=== PATIENT | male | born 1940 | race Caucasian/White ===

== ENCOUNTER 2017-01-25 12:40 | Emergency (ER) | payer MEDICARE, OTHER ==
[~2017-01-25] VITALS: Ht 182.9 cm; Wt 106.7 kg
[2017-01-25 12:42] VITALS: TEMP 36.5; Ht 182.9 cm; Wt 106.7 kg
[2017-01-25 13:17] LABS: BASO % 0.3 %; BASO ABS # 0.03 K/uL (0-0.2); COMPLETE YES; EOS % 0.5 %; HEMATOCRIT 42.2 % (42-52); IG% 0.2 %; LYMPH % 11.7 %; LYMPH ABS # 1.13 K/uL (1.2-3.4); MEAN CELL VOLUME 84.9 fL (80-100); MEAN CORPUSCULAR HEMOGLOBIN 27.2 pg (25-34); MEAN PLATELET VOLUME 10.1 fL (7.4-10.4); MONO % 9.5 %; NEUT % 77.8 %; PLATELET COUNT 213 K/uL (130-400); RED BLOOD COUNT 4.97 M/uL (4.7-6.1); WHITE BLOOD COUNT 9.62 K/uL (4.8-10.8)
[2017-01-25 13:17] LABS: URINE APPEARANCE CLEAR (CLEAR); URINE BILIRUBIN NEG (NEG); URINE COLOR YELLOW; URINE EPITHELIAL CELL AUTO 0-5 /lpf (0-5); URINE NITRITE NEG (NEG); URINE SPECIFIC GRAVITY 1.015 (1.000-1.030); UROBILINOGEN NEG (NEG)
[2017-01-25 13:22] LABS: MANUAL MICROSCOPIC REQUIRED? NO; REVIEW REQ? NO
[2017-01-25 13:34] LABS: BUN/CREATININE RATIO 11.2 (10-20); CALCIUM 9.1 mg/dl (8.5-10.1); CREATININE 1.2 mg/dl (0.60-1.40); POTASSIUM 3.8 mmol/L (3.5-5.1)
--- NOTE | 2017-01-25 13:48 | DIAGNOSTIC IMAGING REPORT ---
CT SCAN OF THE ABDOMEN AND PELVIS WITHOUT IV CONTRAST CLINICAL HISTORY: Left-sided abdominal pain radiating to the groin. COMPARISON STUDY: No priors. TECHNIQUE: CT scan of the abdomen and pelvis is performed from the lung bases to the proximal femora. Images are reviewed in the axial, sagittal, and coronal planes. IV contrast was not administered for this examination. Automated dose control exposure was utilized. CT DOSE: 1662.83 mGy.cm FINDINGS: Lung bases: The heart is normal in size and without pericardial effusion. Coronary artery calcifications are identified. Emphysematous change is noted at the lung base. There are numerous small calcified granulomas. Subpleural reticulation is observed. No airspace consolidation or pleural effusion is seen. There is a moderate hiatal hernia. Liver: The unenhanced liver is normal in size, contour, and attenuation. There is no intrahepatic biliary ductal dilatation. Gallbladder: Unremarkable. Spleen: Normal in size and attenuation. Pancreas: Unremarkable. Adrenal glands: Unremarkable. Kidneys: The unenhanced kidneys demonstrate cortical atrophy. There is an 8 mm obstructing calculus in the mid left ureter seen on axial image #235 at the level of L4-L5. This causes mild left hydroureteronephrosis. There is slight associated perinephric and periureteric stranding. There are at least 2 additional nonobstructing calculi in the left kidney measuring up to 3 mm. There are at least 3 nonobstructing calculi in the right kidney measuring up to 6 mm. There is no right-sided hydronephrosis. A 6 cm exophytic cyst arises from the lower pole of the right kidney. Abdominal vasculature: There is moderate atherosclerotic calcification and ectasia of the abdominal aorta. Bowel: The small bowel and colon are normal in course and caliber. There is moderate diverticulosis of left colon without CT evidence of acute diverticulitis. The appendix is well-visualized and normal. Peritoneum: There is no intraperitoneal free air or abdominal ascites. There is a fat-containing umbilical hernia. Lymphadenopathy: None. Pelvic viscera: Prostate gland is heterogeneous and demonstrates median lobe hypertrophy. The bladder wall is mildly thickened and trabeculated. There is a bladder diverticulum seen anteriorly on image #357 measuring 1.8 cm. The appearance is consistent with chronic bladder outlet obstruction. Skeletal structures: The skeletal structures are osteopenic. There is mild to moderate lumbosacral spondylosis. There are bilateral pars defects at L5. Only minimal anterolisthesis is seen at L5-S1. Degenerative change is also seen in the hips and sacroiliac joints. No lytic or blastic lesions are seen. IMPRESSION: 1. There is an 8 mm obstructing calculus in the mid left ureter. This causes mild left-sided hydroureteronephrosis. 2. Additional bilateral nonobstructing renal calculi as above. 3. Moderate diverticulosis of the left colon without CT evidence of acute diverticulitis. 4. Prostatomegaly with evidence of chronic bladder outlet obstruction. 5. Emphysema. 6. Moderate hiatal hernia. 7. Additional findings as above. Electronically signed by: Bryan Blank M.D. 01/25/2017 1:46 PM Dictated Date/Time: 01/25/2017 1:37 PM
[2017-01-25] MEDS ORDERED: ONDA4TAB10 SL (14:24)
[2017-01-25] MEDS ORDERED: OXYC1TAB3 PO (14:24)
[2017-01-25 14:35] VITALS: BP 137/72; PULSE 72; O2SAT 98
[2017-01-25] MEDS ORDERED: ALLO100T PO (14:35)
[2017-01-25] MEDS ORDERED: THYR90TA PO (14:35)
[2017-01-25] MEDS ORDERED: OMEP20CA9 PO (14:35)
[2017-01-25] MEDS ORDERED: SILD50TA PO (14:35)
[2017-01-25] MEDS ORDERED: COLC0.6T54 PO (14:35)
[2017-01-25] MEDS ORDERED: METO-551 PO (14:35)
[2017-01-25] MEDS ORDERED: CHOL1TAB42 PO (14:37)
[2017-01-25] MEDS ORDERED: VITA1TAB12 PO (14:37)
[2017-01-25] MEDS ORDERED: VITACAP26 PO (14:37)
[2017-01-25] MEDS ORDERED: PROB1TAB16 PO (14:37)
[2017-01-25] MEDS ORDERED: CYAN100T PO (14:37)
--- NOTE | 2017-01-25 14:40 | EMERGENCY ROOM VISIT NOTE ---
History Report prepared by Yusef: Shanell De Jesus Under the Supervision of: Dr. Travis Gracia M.D. First contact with patient: 12:47 Chief Complaint: GI ASSESSMENT Stated Complaint: PAIN LOWER LEFT SIDE History of Present Illness The patient is a 77 year old male who presents to the Emergency Room with complaints of intermittent left sided abdominal pain beginning yesterday. He states that the pain can be sharp at times. The patient is experiencing constipation and vomiting episodes. He notes that he vomited yesterday morning and this morning. The patient denies diarrhea, blood in urine, or burning with urination. He does not have a history of kidney stones. Source of History: patient Onset: yesterday Position: abdomen (left sided) Quality: sharp (at times) Timing: intermittent Associated Symptoms: + vomiting, No chest pain, No diarrhea, No urinary symptoms Note: The patient is experiencing constipation. Review of Systems See HPI for pertinent positives & negatives. A total of 10 systems reviewed and were otherwise negative. Past Medical & Surgical Medical Problems: (1) Hypertension Family History Patient reports no known family medical history. Social History Smoking Status: Never Smoker Marital Status: Housing Status: lives with family Occupation Status: retired Current/Historical Medications Scheduled Cholecalciferol (Vitamin D), 15,000 UNITS PO DAILY Cyanocobalamin (Vitamin B-12), 100 MCG PO DAILY Metoprolol Tartrate (Lopressor), 25 MG PO DAILY Omeprazole (Prilosec), 20 MG PO BID Ondasetron Odt (Zofran Odt), 4 MG SL Q6H Probiotic Product (Probiotic), 1 TAB PO DAILY Sildenafil Citrate (Viagra), 50 MG PO PRN Thyroid ([place]ora Thyroid), 1 TAB PO DAILY Vitamin E (Vitamin E), 1 TAB PO DAILY Vitamins C & E (Vitamin C), 1 CAP PO DAILY Scheduled PRN Allopurinol (Zyloprim), 100 MG PO UD PRN for gout Colchicine (Colchicine), 0.6 MG PO UD PRN for gout Oxycodone Ir (Roxicodone Ir), 5 MG PO Q4H PRN for Pain Allergies Coded Allergies: Tetracycline (Unverified Allergy, Unknown, unknown, 01/25/17) Physical Exam Vital Signs Date Time Temp Pulse Resp B/P (MAP) Pulse Ox O2 Delivery O2 Flow Rate FiO2 01/25/17 12:42 36.5 90 18 164/78 95 Physical Exam Constitutional: Vital signs reviewed. Eyes: Pupils are equal round reactive to light. Conjunctiva are noninjected. ENT: Pharynx is clear without erythema or exudate. Mucous membranes are moist. Neck supple without meningeal signs. Respiratory: Clear to auscultation bilaterally. Breath sounds are equal bilaterally. Cardiovascular: Regular rate and rhythm. No rubs or gallops. GI: Soft, nondistended and nontender. Bowel sounds are present. Musculoskeletal: No peripheral edema. No lower extremity tenderness. Integumentary: No cyanosis. Neurological: The patient is awake and alert. No focal deficits. Psychiatric: Normal affect. Medical Decision & Procedures ER Provider Diagnostic Interpretation: CT results as stated below per my review and radiologist interpretation. CT SCAN OF THE ABDOMEN AND PELVIS WITHOUT IV CONTRAST CLINICAL HISTORY: Left-sided abdominal pain radiating to the groin. COMPARISON STUDY: No priors. TECHNIQUE: CT scan of the abdomen and pelvis is performed from the lung bases to the proximal femora. Images are reviewed in the axial, sagittal, and coronal planes. IV contrast was not administered for this examination. Automated dose control exposure was utilized. CT DOSE: 1662.83 mGy.cm FINDINGS: Lung bases: The heart is normal in size and without pericardial effusion. Coronary artery calcifications are identified. Emphysematous change is noted at the lung base. There are numerous small calcified granulomas. Subpleural reticulation is observed. No airspace consolidation or pleural effusion is seen. There is a moderate hiatal hernia. Liver: The unenhanced liver is normal in size, contour, and attenuation. There is no intrahepatic biliary ductal dilatation. Gallbladder: Unremarkable. Spleen: Normal in size and attenuation. Pancreas: Unremarkable. Adrenal glands: Unremarkable. Kidneys: The unenhanced kidneys demonstrate cortical atrophy. There is an 8 mm obstructing calculus in the mid left ureter seen on axial image #235 at the level of L4-L5. This causes mild left hydroureteronephrosis. There is slight associated perinephric and periureteric stranding. There are at least 2 additional nonobstructing calculi in the left kidney measuring up to 3 mm. There are at least 3 nonobstructing calculi in the right kidney measuring up to 6 mm. There is no right-sided hydronephrosis. A 6 cm exophytic cyst arises from the lower pole of the right kidney. Abdominal vasculature: There is moderate atherosclerotic calcification and ectasia of the abdominal aorta. Bowel: The small bowel and colon are normal in course and caliber. There is moderate diverticulosis of left colon without CT evidence of acute diverticulitis. The appendix is well-visualized and normal. Peritoneum: There is no intraperitoneal free air or abdominal ascites. There is a fat-containing umbilical hernia. Lymphadenopathy: None. Pelvic viscera: Prostate gland is heterogeneous and demonstrates median lobe hypertrophy. The bladder wall is mildly thickened and trabeculated. There is a bladder diverticulum seen anteriorly on image #357 measuring 1.8 cm. The appearance is consistent with chronic bladder outlet obstruction. Skeletal structures: The skeletal structures are osteopenic. There is mild to moderate lumbosacral spondylosis. There are bilateral pars defects at L5. Only minimal anterolisthesis is seen at L5-S1. Degenerative change is also seen in the hips and sacroiliac joints. No lytic or blastic lesions are seen. IMPRESSION: 1. There is an 8 mm obstructing calculus in the mid left ureter. This causes mild left-sided hydroureteronephrosis. 2. Additional bilateral nonobstructing renal calculi as above. 3. Moderate diverticulosis of the left colon without CT evidence of acute diverticulitis. 4. Prostatomegaly with evidence of chronic bladder outlet obstruction. 5. Emphysema. 6. Moderate hiatal hernia. 7. Additional findings as above. Electronically signed by: Bryan Blank M.D. 01/25/2017 1:46 PM Dictated Date/Time: 01/25/2017 1:37 PM Laboratory Results 01/25/17 13:01 Red Blood Count 4.97, Mean Corpuscular Volume 84.9, Mean Corpuscular Hemoglobin 27.2, Mean Corpuscular Hemoglobin Concent 32.0, Mean Platelet Volume 10.1, Neutrophils (%) (Auto) 77.8, Lymphocytes (%) (Auto) 11.7, Monocytes (%) (Auto) 9.5, Eosinophils (%) (Auto) 0.5, Basophils (%) (Auto) 0.3, Neutrophils # (Auto) 7.48, Lymphocytes # (Auto) 1.13, Monocytes # (Auto) 0.91, Eosinophils # (Auto) 0.05, Basophils # (Auto) 0.03 01/25/17 13:01 Test 01/25/17 12:55 01/25/17 13:01 Urine Color YELLOW Urine Appearance CLEAR (CLEAR) Urine pH 6.0 (4.5-7.5) Urine Specific [place] 1.015 (1.000-1.030) Urine Protein NEG (NEG) Urine Glucose (UA) NEG (NEG) Urine Ketones NEG (NEG) Urine Occult Blood 2+ (NEG) Urine Nitrite NEG (NEG) Urine Bilirubin NEG (NEG) Urine Urobilinogen NEG (NEG) Urine Leukocyte Esterase NEG (NEG) Urine WBC (Auto) 1-5 /hpf (0-5) Urine RBC (Auto) 5-10 /hpf (0-4) Urine Hyaline Casts (Auto) 1-5 /lpf (0-5) Urine Epithelial Cells (Auto) 0-5 /lpf (0-5) Urine Bacteria (Auto) NEG (NEG) White Blood Count 9.62 K/uL (4.8-10.8) Red Blood Count 4.97 M/uL (4.7-6.1) Hemoglobin 13.5 g/dL (14.0-18.0) Hematocrit 42.2 % (42-52) Mean Corpuscular Volume 84.9 fL (80-100) Mean Corpuscular Hemoglobin 27.2 pg (25-34) Mean Corpuscular Hemoglobin Concent 32.0 g/dl (32-36) Platelet Count 213 K/uL (130-400) Mean Platelet Volume 10.1 fL (7.4-10.4) Neutrophils (%) (Auto) 77.8 % Lymphocytes (%) (Auto) 11.7 % Monocytes (%) (Auto) 9.5 % Eosinophils (%) (Auto) 0.5 % Basophils (%) (Auto) 0.3 % Neutrophils # (Auto) 7.48 K/uL (1.4-6.5) Lymphocytes # (Auto) 1.13 K/uL (1.2-3.4) Monocytes # (Auto) 0.91 K/uL (0.11-0.59) Eosinophils # (Auto) 0.05 K/uL (0-0.5) Basophils # (Auto) 0.03 K/uL (0-0.2) RDW Standard Deviation 50.5 fL (36.4-46.3) RDW Coefficient of Variation 16.3 % (11.5-14.5) Immature Granulocyte % (Auto) 0.2 % Immature Granulocyte # (Auto) 0.02 K/uL (0.00-0.02) Anion Gap 7.0 mmol/L (3-11) Est Creatinine Clear Calc Drug Dose 67.1 ml/min Estimated GFR () 68.1 Estimated GFR (Non- 58.8 BUN/Creatinine Ratio 11.2 (10-20) Calcium Level 9.1 mg/dl (8.5-10.1) Total Bilirubin 0.8 mg/dl (0.2-1) Direct Bilirubin 0.1 mg/dl (0-0.2) Aspartate Amino Transf (AST/SGOT) 20 U/L (15-37) Alanine Aminotransferase (ALT/SGPT) 23 U/L (12-78) Alkaline Phosphatase 82 U/L (45-117) Total Protein 7.3 gm/dl (6.4-8.2) Albumin 3.7 gm/dl (3.4-5.0) Lipase 83 U/L (73-393) Laboratory results as reviewed by me. ED Course 1248: The patient was evaluated in room B10. A complete history and physical exam was performed. 1415: I reevaluated the patient and he is having no pain. He will follow up with [facility]. I discussed his test results including incidental CT findings. 1423: Upon reevaluation, the patient appeared to have improvement of his symptoms. I discussed tonight's findings with him. He verbalized agreement of the treatment plan. He was discharged home. Medical Decision This is a 77-year-old male who presents with left-sided abdominal pain. Differential diagnosis includes renal colic, obstructive uropathy, UTI, strain, diverticulitis, AAA. I did perform a limited focused review of portions of the patient's old chart on the electronic medical record. The patient has had no visits to this hospital. Medication Reconciliation: I attest that I have personally reviewed the patient' s current medication list. Blood Pressure Screening: Patient was found to have an elevated blood pressure and was referred to their primary doctor for recheck and further treatment. I did evaluate the patient as noted above. He is presenting with intermittent left-sided abdominal pain and flank pain. He has no pain at this time. IV access was established. I did order and personally review the patient's urine analysis x-ray as described above. He does have hematuria without signs of infection. I did order and review the patient's blood work as noted in the electronic medical record. I did order a CT of the abdomen and pelvis. I did review the images myself as well as the radiology report as described above. He does have an 8 mm kidney stone in the proximal left ureter. He also has some other incidental findings including heterogeneity of the prostate with enlargement. I did discuss the test results with the patient I did recommend close follow up with urology. He did prefer to follow up with [facility] urology. He was referred to Dr. Lindo. He was given a prescription for oxycodone and Zofran. He was given precautions regarding oxycodone. He was discharged in good condition and warned that his pain may return and he potentially may require reevaluation or even admission.. [place] Drug Monitoring Program Search Results: patient reviewed within database (no matches found ) Impression Primary Impression: Renal colic Scribe Attestation The scribe's documentation has been prepared under my direct and personally reviewed by me in its entirety. I confirm that the note above accurately reflects all work, treatment, procedures, and medical decision making performed by me. Departure Information Dispostion Home / Self-Care Prescriptions Ondasetron Odt (ZOFRAN ODT) 4 Mg Tab 4 MG SL Q6H for Nausea, #10 TAB Prov: Travis Gracia M.D. 01/25/17 Oxycodone Ir (Roxicodone Ir) 5 Mg Tab 5 MG PO Q4H Y for Pain, #20 TAB Prov: Travis Gracia M.D. 01/25/[address] [facility] Forms HOME CARE DOCUMENTATION FORM, IMPORTANT VISIT INFORMATION Patient Instructions Kidney Stones Expectant Therapy, My [facility] Additional Instructions You have been examined and treated today on an emergency basis only. This is not a substitute for, or an effort to provide, complete comprehensive medical care. It is impossible to recognize and treat all injuries or illnesses in a single emergency department visit. It is therefore important that you follow up closely with your physician and urology. Call as soon as possible for an appointment. Return for worsening symptoms or if you develop fever, vomiting, or any other concerning symptoms.
[2017-02-07] MEDS ORDERED: TAMS0.4C38 PO (11:45)
[2017-05-30] MEDS ORDERED: UMEC1AER INH (09:07)
[2017-05-30] MEDS ORDERED: SERT50TA PO (09:07)
[2017-05-30] MEDS ORDERED: ASPCH81X PO (09:07)
[2017-06-30] MEDS ORDERED: KETOCONAZOLE 2% TOP (15:31)
[2017-06-30] MEDS ORDERED: LAMISIL 1% TOP (15:31)
[2017-06-30] MEDS ORDERED: KRIL1000 PO (15:32)
[2017-06-30] MEDS ORDERED: AMOX-CLAV PO (15:33)
[2017-06-30] MEDS ORDERED: VITAMIN B PO (16:10)
[2017-06-30] MEDS ORDERED: MULT-506 PO (16:10)
[2017-06-30] MEDS ORDERED: VITAMIN D PO (16:10)
[2017-06-30] MEDS ORDERED: IRON PO (16:10)
== END 2017-01-25 14:46 | disposition home or self-care (01) ==
LOC: C.EDB 12:43
DX: N13.2 Hydronephrosis with renal and ureteral calculous obstruction (principal); R10.32 Left lower quadrant pain; K57.92 Diverticulitis of intestine, part unspecified, without perforation or abscess without bleeding; J43.9 Emphysema, unspecified

== ENCOUNTER → 2017-01-29 | Outpatient (CLI) | payer MEDICARE ==
[~2017-01-29] MED LIST: ALLO100T PO; CHOL1TAB42 PO; COLC0.6T54 PO; CYAN100T PO; METO-551 PO; OMEP20CA9 PO; ONDA4TAB10 SL; OXYC1TAB3 PO; PROB1TAB16 PO; SILD50TA PO; TAMS0.4C38 PO; THYR90TA PO; VITA1TAB12 PO; VITACAP26 PO
[2017-01-29 18:05] LABS: BLOOD UREA NITROGEN 13 mg/dl (7-18); BUN/CREATININE RATIO 13.6 (10-20); CARBON DIOXIDE 29 mmol/L (21-32); CHLORIDE 107 mmol/L (98-107); CREATININE 0.96 mg/dl (0.60-1.40); GLUCOSE 86 mg/dl (70-99); POTASSIUM 4.2 mmol/L (3.5-5.1); SODIUM 140 mmol/L (136-145)
== END | disposition home or self-care (01) ==
LOC: C.LAB 16:40
PROVIDERS: ATTEND Urology
DX: N20.0 Calculus of kidney (principal); R94.31 Abnormal electrocardiogram [ECG] [EKG]

== ENCOUNTER → 2017-02-07 | Day surgery (SDC) | payer MEDICARE ==
--- NOTE | 2017-01-29 17:23 | DIAGNOSTIC IMAGING REPORT ---
CHEST 2 VIEWS ROUTINE HISTORY: N20.0 Calculus of kidney COMPARISON: None. FINDINGS: The lungs are clear. Cardiac silhouette is normal in size. No pleural effusions. No pneumothorax. Small to moderate hiatus hernia. IMPRESSION: No acute process. Small to moderate hiatus hernia. Electronically signed by: Wade Ren M.D. 01/29/2017 5:22 PM Dictated Date/Time: 01/29/2017 5:21 PM
--- NOTE | 2017-01-29 17:26 | DIAGNOSTIC IMAGING REPORT ---
KUB HISTORY: N20.0 Calculus of kidney COMPARISON: Abdomen and pelvis CT 01/25/2017. FINDINGS: The bowel gas pattern is unremarkable. There are no dilated loops of small bowel to suggest an obstruction. There is a 7 mm linear stone within the mid left ureter adjacent to the left L4-5 disc space. Calcifications in the deep pelvis are consistent with phleboliths. There are few punctate bilateral renal calculi, unchanged. No pneumoperitoneum or pneumatosis. IMPRESSION: 1. No change in the 7 mm stone within the mid left ureter. 2. Stable bilateral nephrolithiasis. Electronically signed by: Wade Ren M.D. 01/29/2017 5:25 PM Dictated Date/Time: 01/29/2017 5:23 PM
[2017-01-31 13:17] VITALS: Ht 182.9 cm; Wt 104.5 kg
[~2017-02-07] VITALS: Ht 182.9 cm; Wt 104.5 kg
[~2017-02-07] MED LIST changes: +ATROPINE SULFATE 0.1 MG/ML 5ML SYR IV PRN; -CHOL1TAB42 PO; +CIPROFLOXACIN 400MG / D5W IV SCH; -CYAN100T PO; +DEXAMETHASONE SOD INJ 4 MG/ML VIAL IV PRN; +DEXAMETHASONE SOD INJ 4 MG/ML VIAL ONE; +EpHEDrine SULFATE INJ 50 MG/ML AMP IV PRN; +EpHEDrine SULFATE INJ 50 MG/ML AMP ONE; +FENTANYL CITRATE INJ 50 MCG/1 ML 2 ML VIAL IV PRN; +FENTANYL CITRATE INJ 50 MCG/1 ML 2 ML VIAL ONE; +KETOROLAC TROMETHAMINE 30 MG/ML VIAL IV. PRN; +LABETALOL HCL IV 5 MG/ML 20ML IV PRN; +LACTATED RINGER'S 1000ML 1,000 ML IV SCH; +LIDOCAINE HCL 2% 2 ML VIAL (20MG/ML) ONE; +METOCLOPRAMIDE HCL INJ 5 MG/ML 2 ML VIAL IV PRN; +MIDAZOLAM HCL 1 MG/ML 2ML VIAL ONE; +MoRPHine SULFATE 10 MG/ML CARP/VIAL IV PRN; +ONDANSETRON INJ 2 MG/ML 2 ML VIAL IV PRN; +ONDANSETRON INJ 2 MG/ML 2 ML VIAL ONE; +OXYCODONE/ACETAMINOPHEN 5-325 TAB PO PRN; +PHENYLEPHRINE 100MCG/ML 5ML SYR IV PRN; +PROPOFOL IV EMULSION 10 MG/ML 20 ML VIAL IV ONE; -SILD50TA PO; +SODIUM CHLORIDE 0.9% INJ 10 ML VIAL ONE; -VITA1TAB12 PO; -VITACAP26 PO
--- NOTE | 2017-02-07 08:29 | DIAGNOSTIC IMAGING REPORT ---
KUB HISTORY:77 [id number] Calculus of kidney COMPARISON: KUB radiograph 01/29/2017, CT 01/25/2017 TECHNIQUE: K be radiograph. FINDINGS: 7 mm calculus adjacent to the left transverse process of L4 is redemonstrated which has not significantly changed from comparison. The previously noted additional bilateral nephrolithiasis are not as well-seen on today's exam. Bowel gas pattern is nonobstructive. No fracture. IMPRESSION: No change in position of the 7 mm stone within the mid left ureter. The above report was generated using voice recognition software. It may contain grammatical, syntax or spelling errors. Electronically signed by: Sherman Royal 02/07/2017 8:27 AM Dictated Date/Time: 02/07/2017 8:25 AM
--- NOTE | 2017-02-07 10:02 | History & Physical Bridge Note ---
H&P Re-Evaluation Bridge Note: I have examined the patient, reviewed the History & Physical and in the interval since the performance of the History & Physical I have noted the following changes of clinical significance: No changes noted
--- NOTE | 2017-02-07 11:48 | Discharge Instructions ---
Discharge Instructions Date of Service Feb 07, 2017. Admission Reason for Admission: Stones Discharge Discharge Diagnosis / Problem: Left ureteral stone s/p ESWL Discharge Goals Goal(s): Improve function, Improve disease control, Therapeutic intervention Activity Recommendations Activity Limitations: as noted below Lifting Limitations: no more than 25 pounds, gradually increase as tolerated ( x 3 days) Exercise/Sports Limitations: rest today, gradually increase as tolerated (x 3 days) May Resume Sexual Activity: when tolerated Shower/Bathe: no limitations Driving or Machine Use: resume 1 day after discharge . Instructions / Follow-Up Instructions / Follow-Up Follow-up as planned with KUB Xray prior to visit No new Rx for pain meds, received in ER, has not taken per patient Discharge Diet Recommended Diet: Regular Diet (good fluid intake) Procedures Procedures Performed: Left ureteral ESWL Pending Studies Studies pending at discharge: no Medical Emergencies . Who to Call and When: Medical Emergencies: If at any time you feel your situation is an emergency, please call 911 immediately. . Non-Emergent Contact Non-Emergency issues call your: Urologist Call Non-Emergent contact if: you have a fever, temperature is above 101, your pain is not controlled, your pain is worsening, your pain is unusual for you, your pain is concerning you, you have any medication questions . . "Provider Documentation" section prepared by Román Lindo. . VTE Core Measure Inpt VTE Proph given/why not?: SCD's [place] Drug Monitoring [place] Search Results: patient reviewed within database, see additional documentation (Rx in ER, not taken per patient, no new Rx)
--- NOTE | 2017-02-07 12:30 | [facility] Post Operative Brief Note ---
Immediate Operative Summary Operative Date Feb 07, 2017. Pre-Operative Diagnosis Left Ureteral Calculi Post-Operative Diagnosis Same Procedure(s) Performed Left ureteral ESWL Surgeon Dr. Lisa Lindo Business Line Manager Surgeon(s) None Estimated Blood Loss 0 Findings Good stone fragmentation on fluoro Specimens 0 Drains NA Anesthesia G[facility] Complication(s) None Disposition Recovery Room / PACU
--- NOTE | 2017-02-07 12:32 | [facility] Operative Report ---
Operative Report Operative Date Feb 07, 2017. Pre-Operative Diagnosis Left Ureteral Calculi Post-Operative Diagnosis Same Procedure(s) Performed Left ureteral ESWL Surgeon Dr. Lisa Lindo Marketing Recruiter Surgeon(s) None Estimated Blood Loss 0 Findings Good fragmentation on fluoro Specimens 0 Drains NA Anesthesia GALMA Complication(s) None Disposition Recovery Room / PACU Indications Left ureteral stone Description of Procedure The patient was brought to the litho suite. He was correctly identified and the stone was visualized on his most recent x-rays. After the correct time out was performed the patient was positioned over the therapy head. An adequate level of anesthesia was administered. The extracorporeal shockwave lithotripsy treatment was then commenced. Please see the [place] [facility] Stone Management sheet for complete treatment summary. After completion of the procedure the patient was taken to the recovery room in stable condition. I attest to the content of the Intraoperative Record and any orders documented therein. Any exceptions are noted below.
[2017-02-07 13:00] VITALS: TEMP 36.5
--- NOTE | 2017-02-07 13:29 | Anesthesia Progress Nt - [facility] ---
Anesthesia Post Op Note Date & Time Feb 07, 2017 at 13:29 Vital Signs Pain Intensity: 0 Vital Signs Past 12 Hours Date Time Temp Pulse Resp B/P (MAP) Pulse Ox O2 Delivery O2 Flow Rate FiO2 02/07/17 13:00 36.5 71 20 154/84 (107) 94 Room Air 02/07/17 12:56 36.4 119/86 02/07/17 12:55 60 18 02/07/17 12:55 59 18 97 02/07/17 12:51 152/79 02/07/17 12:50 64 13 02/07/17 12:50 65 13 98 02/07/17 12:45 66 14 02/07/17 12:45 68 14 141/78 97 02/07/17 12:41 133/69 02/07/17 12:40 72 15 02/07/17 12:40 71 15 98 02/07/17 12:36 153/86 02/07/17 12:35 70 18 02/07/17 12:35 71 18 100 02/07/17 12:32 37.1 77 16 147/97 100 Mask 6 02/07/17 12:31 147/97 02/07/17 09:17 36.6 67 18 154/98 (116) 94 Room Air Notes Mental Status: alert / awake / arousable, participated in evaluation Pt Amnestic to Procedure: Yes Nausea / Vomiting: adequately controlled Pain: adequately controlled Airway Patency, RR, SpO2: stable & adequate BP & HR: stable & adequate Hydration State: stable & adequate Anesthetic Complications: no major complications apparent
[2017-02-07 13:36] VITALS: BP 169/84; PULSE 84; O2SAT 97
== END | disposition home or self-care (01) ==
LOC: X.SURG 08:32
PROVIDERS: ATTEND Urology
DX: N20.1 Calculus of ureter (principal); I25.2 Old myocardial infarction; Z79.82 Long term (current) use of aspirin; Z87.891 Personal history of nicotine dependence

== ENCOUNTER → 2017-02-19 | Outpatient (CLI) | payer MEDICARE ==
[~2017-02-19] MED LIST changes: -ATROPINE SULFATE 0.1 MG/ML 5ML SYR IV PRN; -CIPROFLOXACIN 400MG / D5W IV SCH; -DEXAMETHASONE SOD INJ 4 MG/ML VIAL IV PRN; -DEXAMETHASONE SOD INJ 4 MG/ML VIAL ONE; -EpHEDrine SULFATE INJ 50 MG/ML AMP IV PRN; -EpHEDrine SULFATE INJ 50 MG/ML AMP ONE; -FENTANYL CITRATE INJ 50 MCG/1 ML 2 ML VIAL IV PRN; -FENTANYL CITRATE INJ 50 MCG/1 ML 2 ML VIAL ONE; -KETOROLAC TROMETHAMINE 30 MG/ML VIAL IV. PRN; -LABETALOL HCL IV 5 MG/ML 20ML IV PRN; -LACTATED RINGER'S 1000ML 1,000 ML IV SCH; -LIDOCAINE HCL 2% 2 ML VIAL (20MG/ML) ONE; -METOCLOPRAMIDE HCL INJ 5 MG/ML 2 ML VIAL IV PRN; -MIDAZOLAM HCL 1 MG/ML 2ML VIAL ONE; -MoRPHine SULFATE 10 MG/ML CARP/VIAL IV PRN; -ONDANSETRON INJ 2 MG/ML 2 ML VIAL IV PRN; -ONDANSETRON INJ 2 MG/ML 2 ML VIAL ONE; -OXYCODONE/ACETAMINOPHEN 5-325 TAB PO PRN; -PHENYLEPHRINE 100MCG/ML 5ML SYR IV PRN; -PROPOFOL IV EMULSION 10 MG/ML 20 ML VIAL IV ONE; -SODIUM CHLORIDE 0.9% INJ 10 ML VIAL ONE; -TAMS0.4C38 PO
--- NOTE | 2017-02-19 10:27 | DIAGNOSTIC IMAGING REPORT ---
KUB CLINICAL HISTORY: Calculus of kidney. COMPARISON STUDY: CT of the abdomen and pelvis January 25, 2017 and KUB February 17, 2017. FINDINGS: A 7 mm calculus within the lower pole of the right kidney is noted. Several small left renal calculi are noted. Pelvic calcifications reflect phleboliths. The left ureteral calculus shown on KUB of February 07, 2017 is not visualized on this exam. IMPRESSION: 1. Nonvisualization of the left ureteral calculus shown on KUB of February 07, 2017. 2. Bilateral nephrolithiasis. Electronically signed by: Caio Borden M.D. 02/19/2017 10:26 AM Dictated Date/Time: 02/19/2017 9:43 AM
== END | disposition home or self-care (01) ==
LOC: C.RAD1850 09:07
PROVIDERS: ATTEND Urology
DX: N20.0 Calculus of kidney (principal)

== ENCOUNTER → 2017-05-26 | Outpatient (CLI) | payer MEDICARE ==
[~2017-05-26] MED LIST changes: +ASPCH81X PO; +SERT50TA PO; +UMEC1AER INH
[2017-05-26 17:36] LABS: HEMATOCRIT 43.2 % (42-52); MEAN CELL VOLUME 90.6 fL (80-100); MEAN CORPUSCULAR HEMOGLOBIN 28.1 pg (25-34); MEAN PLATELET VOLUME 10.3 fL (7.4-10.4); PLATELET COUNT 203 K/uL (130-400); RED BLOOD COUNT 4.77 M/uL (4.7-6.1); WHITE BLOOD COUNT 7.26 K/uL (4.8-10.8)
[2017-05-26 17:38] LABS: ALT/SGPT 22 U/L (12-78); BLOOD UREA NITROGEN 17 mg/dl (7-18); BUN/CREATININE RATIO 16.5 (10-20); CALCIUM 8.9 mg/dl (8.5-10.1); CARBON DIOXIDE 28 mmol/L (21-32); CHLORIDE 107 mmol/L (98-107); CHOLESTEROL 188 mg/dl (0-200); CREATININE 1.04 mg/dl (0.60-1.40); GLUCOSE 93 mg/dl (70-99); POTASSIUM 4.2 mmol/L (3.5-5.1); SODIUM 140 mmol/L (136-145); URIC ACID 7.2 mg/dl (2.6-7.2)
[2017-05-26 17:47] LABS: ALB/GLOB RATIO 1.2 (0.9-2); ALKALINE PHOSPHATASE 74 U/L (45-117); AST/SGOT 18 U/L (15-37); CHOLESTEROL/HDL RATIO 4.6; HDL CHOLESTEROL 41 mg/dl; LDL CHOLESTEROL CALCULATED 117 mg/dl; TRIGLYCERIDES 148 mg/dl (0-150); VERY LOW DENSITY LIPOPROT CALC 30 mg/dl
[2017-05-27 06:44] LABS: ESTIMATED AVERAGE GLUCOSE 120 mg/dl; HA1C FLAG Normal (Normal)
[2017-05-28 13:59] LABS: MICROSOMAL AB 3 IU/ML (<9)
--- NOTE | 2017-05-30 13:34 | CODING QUERY MEDICAL NECESSITY ---
SUPPORTING DIAGNOSIS NEEDED A supporting diagnosis is required for the test/procedure performed on this patient in order for us to be reimbursed by the patient's insurance. Please provide a supporting diagnosis for the following test/procedure listed below next to the test name along with your signature. *If there is no additional diagnosis for this patient that would support the following test/procedure please document that below next to the test/procedure. Test(s)/Procedure(s) that require a supporting diagnosis: * HEMOGLOBIN A1C DIAGNOSIS: Provider Signature: Date: Thank you Belén Barr [employer] Once completed, please kindly fax back to [phone] For questions please call [phone]
== END | disposition home or self-care (01) ==
LOC: C.LABPBG 11:28
PROVIDERS: ATTEND Family Medicine
DX: E03.9 Hypothyroidism, unspecified (principal); I25.10 Atherosclerotic heart disease of native coronary artery without angina pectoris; M10.9 Gout, unspecified; R20.2 Paresthesia of skin; N40.0 Benign prostatic hyperplasia without lower urinary tract symptoms; R73.03 Prediabetes

== ENCOUNTER → 2017-06-24 | Outpatient (CLI) | payer MEDICARE, OTHER ==
[~2017-06-24] MED LIST changes: -ONDA4TAB10 SL; -OXYC1TAB3 PO; -PROB1TAB16 PO
== END | disposition home or self-care (01) ==
LOC: C.LABPBG 11:19
PROVIDERS: ATTEND Surgery
DX: C18.9 Malignant neoplasm of colon, unspecified (principal)

== ENCOUNTER 2017-07-08 09:26 | Inpatient (IN) | payer MEDICARE, OTHER ==
[2017-06-30 15:39] VITALS: BMI 31.0
[2017-07-08] VITALS (8 sets, daily range): BP systolic 116–158; BP diastolic 51–94; PULSE 55–88; TEMP 36.2–36.9; O2SAT 92–96; Ht 182.9 cm; Wt 104.5 kg
[~2017-07-08] VITALS: Ht 182.9 cm; Wt 104.5 kg
[~2017-07-08 09:26] MED LIST changes: +AMOX-CLAV PO; +IRON PO; +KETOCONAZOLE 2% TOP; +KRIL1000 PO; +LACTATED RINGER'S 1000ML 1,000 ML IV SCH; +LAMISIL 1% TOP; +MULT-506 PO; +VITAMIN B PO; +VITAMIN D PO
--- NOTE | 2017-07-08 10:44 | History & Physical Bridge Note ---
H&P Re-Evaluation Bridge Note: I have examined the patient, reviewed the History & Physical and in the interval since the performance of the History & Physical I have noted the following changes of clinical significance: No changes noted pt marked family bedside, all questions answered
[2017-07-08] MEDS ORDERED: GLYCOPYRROLATE INJ 0.2 MG/ML VIAL ONE (12:11)
[2017-07-08] MEDS ORDERED: LIDOCAINE HCL 2% 2 ML VIAL (20MG/ML) ONE (12:11)
[2017-07-08] MEDS ORDERED: ONDANSETRON INJ 2 MG/ML 2 ML VIAL ONE (12:11)
[2017-07-08] MEDS ORDERED: NEOSTIGMINE METHYLSULFATE 5 MG/5 ML SYR ONE (12:11)
[2017-07-08] MEDS ORDERED: DEXAMETHASONE SOD INJ 4 MG/ML VIAL ONE (12:11)
[2017-07-08] MEDS ORDERED: PROPOFOL IV EMULSION 10 MG/ML 20 ML VIAL IV ONE (12:11)
[2017-07-08] MEDS ORDERED: MIDAZOLAM HCL 1 MG/ML 2ML VIAL ONE (12:12)
[2017-07-08] MEDS ORDERED: FENTANYL CITRATE INJ 50 MCG/1 ML 2 ML VIAL ONE ×3 (12:12→14:01)
[2017-07-08] MEDS ORDERED: BACITRACIN 50000 UNIT VIAL ONE (12:22)
[2017-07-08] MEDS ORDERED: BUPIVACAINE/EPINEPHRINE 0.5% MPF 1:200,000 30 ML VIAL ONE (12:23)
[2017-07-08] MEDS ORDERED: BUPIVACAINE 0.5 % 5 MG/1 ML MPF 30ML VIAL ONE (12:24)
[2017-07-08] MEDS ORDERED: CEFOXITIN SOD 1 GM VIAL ONE (13:09)
[2017-07-08] MEDS ORDERED: ESMOLOL HCL 10 MG/ML 10 ML VIAL ONE ×2 (13:20→16:24)
[2017-07-08] MEDS ORDERED: EpHEDrine SULFATE INJ 50 MG/ML AMP ONE (13:20)
[2017-07-08] MEDS ORDERED: PHENYLEPHRINE 100MCG/ML 5ML SYR ONE (13:20)
[2017-07-08] MEDS ORDERED: HYDROmorphone INJ 2 MG/ML SYR/VIAL ONE ×2 (13:31→15:10)
[2017-07-08] MEDS ORDERED: ROCURONIUM BROMIDE 10 MG/ML 5 ML VIAL IV ONE ×2 (14:14→16:34)
[2017-07-08] MEDS ORDERED: NALOXONE HCL 0.4 MG/1 ML VIAL/CARP IV PRN ×2 (15:45→16:30)
[2017-07-08] MEDS ORDERED: ALLOPURINOL 100 MG TAB PO PRN (15:45)
[2017-07-08] MEDS ORDERED: CEFOXITIN IV 2,000 MG in DEXTROSE 5% 50ML 50 ML IV SCH (15:45)
[2017-07-08] MEDS ORDERED: ONDANSETRON INJ 2 MG/ML 2 ML VIAL IV PRN ×2 (15:45→16:30)
--- NOTE | 2017-07-08 16:03 | [facility] Operative Report ---
Operative Report Operative Date Jul 08, 2017. Pre-Operative Diagnosis Colon cancer Post-Operative Diagnosis Same Procedure(s) Performed Laparoscopic-Assisted Colon Resection, Open Colon Resection, and Repair Incarcerated Umbilical Hernia protective ileostomy Surgeon Dr Rutledge Purchasing Intern Surgeon(s) Gil Penaloza PA-C Estimated Blood Loss 150cc Findings large tumor extending in rectum Specimens CS#1 cathed urine for culture and sensitivity sent out at 1300 Frozen section #1 rectosigmoid long sutureinferior mesenteric artery, silk suture cano distal line of resection check north of silk suture distal line* sent out at 1420 Drains 19 rob per stab and 1/4 lucien sub cut Description of Procedure OR summary dictated confirmation number [id number] I attest to the content of the Intraoperative Record and any orders documented therein. Any exceptions are noted below.
[2017-07-08] MEDS ORDERED: MoRPHine SULFATE 1 MG/ML 50 ML PCA CASS ONE (16:29)
[2017-07-08] MEDS ORDERED: EpHEDrine SULFATE INJ 50 MG/ML AMP IV PRN (16:30)
[2017-07-08] MEDS ORDERED: LABETALOL HCL IV 5 MG/ML 20ML IV PRN (16:30)
[2017-07-08] MEDS ORDERED: ATROPINE SULFATE 0.1 MG/ML 5ML SYR IV PRN (16:30)
[2017-07-08] MEDS ORDERED: PROMETHAZINE HCL INJ 12.5 MG in SODIUM CHLORIDE 0.9% 50ML 50 ML IV PRN (16:30)
--- NOTE | 2017-07-08 16:47 | Anesthesiology Progress Note ---
Anesthesia Post Op Note Date & Time Jul 08, 2017 at 16:47 Vital Signs Pain Intensity: 0 Vital Signs Past 12 Hours Date Time Temp Pulse Resp B/P (MAP) Pulse Ox O2 Delivery O2 Flow Rate FiO2 07/08/17 16:35 89 17 157/98 95 Oxymask 10 07/08/17 16:25 89 14 155/88 95 Oxymask 10 07/08/17 16:16 36.8 88 18 165/90 95 Oxymask 10 07/08/17 09:52 36.6 55 20 134/94 95 Room Air Notes Mental Status: alert / awake / arousable, participated in evaluation Pt Amnestic to Procedure: Yes Nausea / Vomiting: adequately controlled Pain: adequately controlled Airway Patency, RR, SpO2: stable & adequate BP & HR: stable & adequate Hydration State: stable & adequate Anesthetic Complications: no major complications apparent
[2017-07-08] MEDS ORDERED: LACTATED RINGER'S 1000ML 1,000 ML IV SCH (18:00)
[2017-07-08] MEDS: SODIUM CHLORIDE 0.9% 1000ML 1,000 ML IV SCH (18:35)
--- NOTE | 2017-07-08 18:42 | Medical Consult ---
Consultation Note Date of Service Jul 08, 2017. Consultation Note consult for medicval management done, [id number], IR, ambulated bradley, continue home meds
[2017-07-08] MEDS ORDERED: NURSING VERBAL MED ORDER ONE (18:45)
--- NOTE | 2017-07-08 19:08 | INTERNAL MEDICINE CONSULTATION ---
DATE OF ADMISSION: 07/08/2017 This is a level 2 consultation H&P, 25 minutes. PHYSICIAN REQUESTING CONSULTATION: Dr. Rutledge. REASON FOR CONSULTATION: Medical management postop for colon cancer, SP laparoscopic colon resection and open colon resection and repair of incarcerated umbilical hernia. HISTORY OF PRESENT ILLNESS: The patient is a 77-year-old white male with a significant past medical history of gout, anxiety, CAD, [place], GERD, anxiety, hypothyroidism, was admitted to Dr. Rutledge's service because of the above conditions. The patient has procedure done today, tolerated the procedure well. When I see him, pain is well controlled. He has no complaints. Denied fever or chills. Denied cough, sputum, shortness of breath; denied nausea, vomiting, no obvious abdominal pain. Denied diarrhea, constipation or rectal bleedings. Denied dysuria, urgency and frequencies. Denied facial droop, slurry speeches or local weakness. ALLERGIES: ALLERGY TO MIDAZOLAM AND TETRACYCLINE. PAST MEDICAL HISTORY: Like I mentioned in the above, CAD, NJ, cardiac catheterization and stent, history of circumcision and lithotripsy. Other conditions include anxiety, hypothyroidism. SOCIAL HISTORY: Denied alcohol abuse disorder, denied current smoking. Denied illicit drug abuse. He to have remote history of smoking for 25 years, quit 35 years ago. FAMILY HISTORY: Not remarkable. MEDICATIONS: Taking at home which include: 1. Allopurinol 100 mg p.o. p.r.n. for gout flaring. 2. Aspirin 81 mg p.o. daily. 3. Colchicine 0.6 mg p.o. p.r.n. for gout flaring. 4. Metoprolol 25 mg p.o. q.a.m. 5. Multiple vitamin 1 tab p.o. q.a.m. 6. Omeprazole 20 mg p.o. q.a.m. 7. Zoloft 50 mg p.o. q.a.m. 8. Thyroid 90 mg tab p.o. daily. REVIEW OF SYSTEMS: Please see HPI, otherwise 14 points organ system review were negative. PHYSICAL EXAMINATION: VITAL SIGNS: Temperature is 36.9, pulse 76, respiration rate 16, blood pressure 138/51. Pulse ox was 96% on 3 liters nasal cannula. GENERAL: The patient is a white male, awake, alert and orientated, pleasant, conversational, follows all commands. HEAD: Normocephalic. EYES: Pupils equal, round responds to light. EARS: Ear was normal. NOSE: Normal. NECK: Supple. Thyroid no enlargement. Trachea in midline. HEART: Regular rhythm. S1, S2. LUNGS: Decreased breathing sounds. There was no wheezing, rhonchi and crackles. ABDOMEN: Soft, no obvious tenderness. Bowel sound was decreased. Bilateral CVA was nontender. BILATERAL LOWER EXTREMITIES: No swelling. Homans sign was negative. Calf was nontender. NEUROLOGICAL EVALUATION: Cranial nerves II through XII was intact. There was no local deficits. PREOPERATIVE LABORATORY STUDIES: Includes CBC and BMP on 05/26/2017: WBC 7.2, hemoglobin 13, platelet 203. Sodium 140, potassium 4.2, BUN 17, creatinine 1.04. A1c was 5.8. AST and ALT were normal. LDL was 117. TSH was 1.13. Echocardiogram on 06/11/2017 which shows mild concentric left ventricular hypertrophy. Left ventricular systolic function is normal. Grade 1 diastolic dysfunction, left atrium is moderately dilated, and there appears to be a small apical thrombosis on the echo. ASSESSMENT AND PLAN: 77-year-old white male admitted to Dr. Rutledge's service because of colon cancer status post colon resection, this condition, DVT px, physical therapy, occupational therapy, pain control, discharge plan, will be per primary team. History of hypertension, gastroesophageal reflux disease, anxiety, hypothyroidism, currently stable. We will continue current home medications. Tomorrow morning lab is ordered including CBC, BMP and magnesium. possible Small apical thrombosis on the echo on 06/2017, patient know this situation, and reported that is "possible not real, and is watching together with PCP", I told patient need to continue follow up with PCP and referral to qual field manager if need. The patient understands and agreed, he also has left atrium moderately dilated as well, I advised him need to follow up with PCP or qual field manager too. He agreed. thank you for the chance of involving in your patient care. We will continue to follow up. ROSS
--- NOTE | 2017-07-08 19:14 | OPERATIVE REPORT ---
DATE OF OPERATION: 07/08/2017 PREOPERATIVE DIAGNOSIS: Biopsy proven adenocarcinoma of the sigmoid colon. POSTOPERATIVE DIAGNOSIS: Same with extension into the rectum, incarcerated umbilical hernia. PROCEDURE: Laparoscopic assisted sigmoid and proximal rectal resection with primary side-to-end anastomosis, repair of incarcerated umbilical hernia, protective ileostomy. SURGEON: Dr. Rutledge. HOSTESS PARTY SALES REPRESENTATIVE: Gilbert Penaloza PA-C. OPERATION AND FINDINGS: SUMMARY: After induction of general endotracheal anesthesia, the patient's abdomen was prepped with Betadine solution and properly draped. Araujo catheter had been inserted. We at this point made a small incision above the umbilical area, which he had an incarcerated umbilical hernia sufficient enough to place a Veress needle. The patient's blood pressure was low, even though we had not really insufflated. This was general induction. It came up into the 130s and 140s. We then reestablished pneumoperitoneum sufficient enough to place 5 mm trocar followed by the scope. At this point, we were able to visualize that the patient had a significant amount of fatty tissue, large omentum going down towards the pelvic area. We placed the patient in Trendelenburg position and tried to place the viscera up towards the chest. We identified the sigmoid colon that appeared normal in caliber and also there was no evidence of any diverticular disease per se. We then extended down towards the pelvic area where a significant amount of adhesions were appreciated from the sigmoid colon to the lateral mason. At this point, I placed a 5 mm right flank, a 5 mm left flank trocar with preemptive local analgesia. We were able to free up the white line of Toldt laterally taking this down all the way down to lower pelvic brim. We were able to identify the patient had what appeared to be left inguinal hernia, it was quite small. We took our dissection, I could see the tattooed area of the distal sigmoid going towards the rectum. At this point, we mobilized the sigmoid colon and also the left colon all the way up to the splenic flexure. I did not take down the splenic flexure. At this point, once we had mobilized this I thought that we had enough mobilization that given the extent of the inflammatory process and adhesions in the pelvis to proceed with open procedure which we converted to an open procedure by making an incision in the suprapubic area approximately 3 inches or so, deepened through subcutaneous tissue. We entered in the peritoneal cavity. The bladder was easily appreciated. At this point we used a Bookwalter retractor and identified a very fatty tissue apron with very friable fatty tissue along the sigmoid colon. We immobilized this sufficiently enough as we said there would be no problem with any tension on the anastomosis. Once we palpated down into the rectal area we could feel the tumor that was quite large, was mostly in the distal sigmoid but appeared to be at least by palpation going down below the peritoneal reflection into the rectum. At this point, we then divided the peritoneum on either side the pelvic area and identified the right ureter and the left ureter. These were quite small, but appreciated. We then divided the peritoneum all the way down to almost the aorta identified the inferior epigastric vessels which we divided and doubly ligated and the specimen marked with long suture. Our dissection was then carried down into of Waldeyer's fascia that we were able to get down into the peritoneum. We freed up circumferentially and palpated the tumor, we felt well into the rectum that we were below the tumor. At this point, we then used a right angle intestinal clamp distally, once proximally and cut across the rectal area just below the sigmoid area and opened the specimen. We will close but it seemed to be grossly free of any tumor in that area. We sent the specimen to pathology and they grossly confirmed that there was no tumor in that area or line of resection. I did take out approximately another inch or so, another donut distal to the resection making sure there was nothing grossly microscopic. Of note, though once we took this line of resection the rectum was very friable and very thin walled. The MATTHEW had been used to divide the distal sigmoid colon. We oversewed that area with 3-0 interrupted silk. We did a side-to-end anastomosis with 3-0 silk outer layer, 3-0 chromic inner layer. As stated, the rectum was quite thin walled and therefore at this point I elected to once we closed the anastomosis, we would drain this with a Jersey drain into the pelvis but I would protect the anastomosis with a protective ileostomy, which we would. At this point we checked the area for hemostasis and appeared satisfactory. A Jersey drain was brought in from the left flank taken down anterior to anastomosis, attached to skin edges with 3-0 silk. A small opening was made just towards McBurney's point, nickel sized that we dissected down to the anterior rectus sheath, divided that and placed 2 fingers to create an ostomy site. We did identify the terminal ileum and took it about 6 or 8 inches proximal to ileocecal valve and brought it out through the ostomy site. We put 1 silk suture inside the abdomen to keep it from angulating. We then matured this at the end of the procedure, but prior to doing that we then closed the incarcerated umbilical hernia intraabdominally with #1 PDS and closed the abdominal wound incision with #1 PDS [id number], 0.25" Kelsy was placed subQ, jossy for skin edges. Once this has been accomplished, we scored the anterior surface of the ileum in a fashion that we replaced the migue proximally and distally. We took bites of the skin to the ileum and also the mucosa to invert the lining. We also placed a plastic bridge underneath the ileostomy secured in place with 3-0 silk suture. Dressing was applied. The procedure was tolerated well by the patient. Estimated blood loss approximately 150 mL. The patient was taken to recovery room in good condition. This was a very difficult case do to fact of significant fatty tissue pelvis and more so poor quality of rectum(very friable ). I attest to the content of the Intraoperative Record and any orders documented therein. Any exceptions are noted below. ROSS
[2017-07-08] MEDS: CEFOXITIN IV 2,000 MG in SYRINGE 11 ML IV SCH (20:37)
[2017-07-08] MEDS: HEPARIN SOD 5000 UNIT/0.5 ML CARP SQ SCH (21:41)
[2017-07-08] MEDS: LACTATED RINGER'S 1000ML 1,000 ML IV SCH (22:30)
[2017-07-08] MEDS: MoRPHine SULFATE 1 MG/ML 50 ML PCA CASS IV PRN (23:02)
[2017-07-09] VITALS (8 sets, daily range): BP systolic 135–159; BP diastolic 61–86; PULSE 62–81; TEMP 36.5–36.9; O2SAT 90–92
[2017-07-09] MEDS: CEFOXITIN IV 2,000 MG in SYRINGE 11 ML IV SCH ×2 (02:03→08:05)
[2017-07-09] MEDS: HEPARIN SOD 5000 UNIT/0.5 ML CARP SQ SCH ×3 (04:55→21:49)
[2017-07-09] MEDS: LACTATED RINGER'S 1000ML 1,000 ML IV SCH ×3 (04:55→21:36)
[2017-07-09] MEDS: MoRPHine SULFATE 1 MG/ML 50 ML PCA CASS IV PRN ×3 (07:05→23:14)
--- NOTE | 2017-07-09 07:14 | Surgery Progress Note ---
Surgery Progress Note Date of Service Jul 09, 2017. Subjective Post OP Day: 1 + feeling well, + pain controlled, No nausea Objective Vital Signs: Date Time Temp Pulse Resp B/P (MAP) Pulse Ox O2 Delivery O2 Flow Rate FiO2 07/09/17 04:00 36.8 70 18 152/75 (100) 92 Room Air 07/08/17 23:28 Room Air 07/08/17 22:50 36.5 72 18 158/82 (107) 92 Room Air 07/08/17 21:00 36.5 82 16 155/81 (105) 92 Room Air 2.0 07/08/17 19:15 36.2 82 18 116/72 (87) 95 Nasal Cannula 2.0 07/08/17 18:00 Nasal Cannula 3.5 07/08/17 18:00 36.6 88 14 138/75 (96) 96 Nasal Cannula 2.0 07/08/17 17:42 76 16 138/51 (80) 96 Nasal Cannula 3.0 07/08/17 17:32 96 Nasal Cannula 3.0 07/08/17 17:15 36.9 85 18 158/93 (114) 94 Nasal Cannula 3.0 07/08/17 17:10 87 16 150/87 94 Nasal Cannula 4 07/08/17 16:55 87 16 149/89 95 Nasal Cannula 4 07/08/17 16:45 36.7 88 16 117/98 95 Nasal Cannula 4 07/08/17 16:35 89 17 157/98 95 Oxymask 10 07/08/17 16:25 89 14 155/88 95 Oxymask 10 07/08/17 16:16 36.8 88 18 165/90 95 Oxymask 10 07/08/17 09:52 36.6 55 20 134/94 95 Room Air Physical Exam: Jersey drainage (30), urine output (1550) Abdomen: soft, + distended (slightly), + pertinent finding (ileostomy slightly edematous) Incision(s): clean, drainage (lucien) Laboratory Results: Results Past 24 Hours Test 07/08/17 16:43 07/09/17 04:44 Range/Units Hemoglobin 12.7 14.0-18.0 g/dL Hematocrit 40.0 42-52 % Microbiology Results 07/08/17 Urine Culture, Received Pending Assessment & Plan s/p LAR/protective ileostomy UOP good BP stable AM labs pending will decrease IVF on subQ heparin
--- NOTE | 2017-07-09 07:38 | PROGRESS NOTE ---
DATE: 07/09/2017 Ben is first day status post laparoscopic assisted sigmoid rectal resection and primary anastomosis with protective ileostomy and repair of incarcerated umbilical hernia. He is alert, coherent and in no distress. He is not nauseated. Intraoperative findings were discussed with the patient and the surgery. His last vitals showed a temperature of 36.8, pulse 70, respirations 16, blood pressure 152/75, O2 sats 92 on room air. I&O the Jersey drainage was 30 mL serosanguineous. The ileostomy is viable. There is minimal output. The abdomen is preoperative. His urine output is excellent. At this point, discussed with the patient will increase his oral intake and start him on clear liquids and keep the Araujo in for today since we really had to go and do very low anastomosis into the rectal area and pushed the bladder out of the way to accomplish this. We will increase his activity. The lab is pending this morning.
[2017-07-09] MEDS ORDERED: OXYCODONE HCL IR 5 MG TAB (IMMEDIATE RELEASE) PO PRN (07:45)
[2017-07-09 08:14] LABS: COMPLETE YES; HEMATOCRIT 39.4 % (42-52); IG% 0.3 %; LYMPH % 5.6 %; LYMPH ABS # 0.59 K/uL (1.2-3.4); MEAN CELL VOLUME 91.6 fL (80-100); MEAN CORPUSCULAR HEMOGLOBIN 28.8 pg (25-34); MEAN CORPUSCULAR HGB CONC 31.5 g/dl (32-36); MONO % 8.1 %; PLATELET COUNT 208 K/uL (130-400); WHITE BLOOD COUNT 10.49 K/uL (4.8-10.8)
[2017-07-09] MEDS: ACETAMINOPHEN IV 1,000 MG in EMPTY BAG 0 ML IV SCH ×3 (08:23→23:58)
[2017-07-09] MEDS: PANTOprazole SOD 40 MG TAB PO SCH (08:24)
[2017-07-09] MEDS: METOPROLOL TARTRATE 25 MG TAB PO SCH (08:24)
[2017-07-09] MEDS: ARMOUR THYROID 30 MG TAB PO SCH (08:24)
[2017-07-09] MEDS: SERTRALINE HCL 50 MG TAB PO SCH (08:24)
[2017-07-09 08:43] LABS: BUN/CREATININE RATIO 18.4 (10-20); CALCIUM 8.2 mg/dl (8.5-10.1); CREATININE 1.01 mg/dl (0.60-1.40); MAGNESIUM 2.3 mg/dl (1.8-2.4); POTASSIUM 4.7 mmol/L (3.5-5.1)
[2017-07-09] MEDS: SODIUM CHLORIDE 0.9% 1000ML 1,000 ML IV SCH (13:48)
--- NOTE | 2017-07-09 14:24 | Anesthesiology Progress Note ---
Anesthesia Post Op Note Date & Time Jul 09, 2017 at 14:23 Vital Signs Vital Signs Past 12 Hours Date Time Temp Pulse Resp B/P (MAP) Pulse Ox O2 Delivery O2 Flow Rate FiO2 07/09/17 11:16 36.9 81 18 150/78 (102) 91 Room Air 07/09/17 08:20 67 147/62 (90) 07/09/17 08:14 90 Room Air 07/09/17 07:36 36.9 69 18 150/78 (102) 90 Room Air 07/09/17 07:00 Room Air 07/09/17 04:00 36.8 70 18 152/75 (100) 92 Room Air Notes Mental Status: alert / awake / arousable, participated in evaluation Pt Amnestic to Procedure: Yes Nausea / Vomiting: adequately controlled Pain: adequately controlled Airway Patency, RR, SpO2: stable & adequate BP & HR: stable & adequate Hydration State: stable & adequate Anesthetic Complications: no major complications apparent
--- NOTE | 2017-07-09 16:11 | Hospitalist Progress Note ---
Hospitalist Progress Note Date of Service Jul 09, 2017. Subjective Pt evaluation today including: conversation w/ patient, physical exam, chart review, lab review, review of studies, review of inpatient medication list Patient seen and evaluated. Pain under control. Diet has been advanced and tolerating. Verbalized no other complaints at this time. Constitutional: No fever, No chills Respiratory: No cough, No shortness of breath Cardiovascular: No chest pain Abdomen: + pain, No nausea, No vomiting Musculoskeletal: No swelling, No calf pain Male : No dysuria Heme: No abnormal bleeding/bruising Skin: No rash Medications Current Inpatient Medications Medications (Trade) Dose Ordered Sig/Kait Route Start Time Stop Time Status Last Admin Dose Admin Ondansetron HCl (Zofran Inj) 4 mg Q6H PRN IV 07/08/17 15:45 08/07/17 15:44 Heparin Sodium (Porcine) (Heparin Sq 5000 Unit/0.5ml) 5,000 unit Q8H SQ 07/08/17 22:00 08/07/17 21:59 Naloxone HCl (Narcan Inj) 0.1 mg Q5M PRN IV 07/08/17 15:45 08/07/17 15:44 Morphine Sulfate (moRPHine [employer]ULF[employer] OPERATIONS CLERK) 50 mg PRN PRN IV 07/08/17 15:45 07/22/17 15:44 07/09/17 11:01 50 MG Sodium Chloride 1,000 ml @ 15 mls/hr Q24H IV 07/08/17 15:43 08/07/17 15:42 Allopurinol (Zyloprim Tab) 100 mg DAILY PRN PO 07/08/17 15:45 08/07/17 15:44 Metoprolol Tartrate (Lopressor Tab) 25 mg QAM PO 07/09/17 09:00 08/08/17 08:59 07/09/17 08:24 25 MG Sertraline HCl (Zoloft Tab) 50 mg QAM PO 07/09/17 09:00 08/08/17 08:59 07/09/17 08:24 50 MG Pantoprazole Sodium (Protonix Tab) 40 mg QAM PO 07/09/17 09:00 08/08/17 08:59 07/09/17 08:24 40 MG Thyroid ([place] Thyroid Tab) 90 mg DAILY PO 07/09/17 09:00 08/08/17 08:59 07/09/17 08:24 90 MG Miscellaneous Information (Order Awaiting Action) 1 ea QS N/A 07/09/17 00:00 08/08/17 00:00 Lactated Ringer's 1,000 ml @ 125 mls/hr Q8H IV 07/09/17 00:00 08/08/17 00:00 07/09/17 13:48 125 MLS/HR Oxycodone HCl (Roxicodone Immediate Rel Tab) 1 mg Q4H PRN PO 07/09/17 07:45 07/23/17 07:44 Acetaminophen 1000 mg/Empty Bag 100 ml @ 400 mls/hr Q8H IV 07/09/17 08:00 08/08/17 07:59 07/09/17 15:42 400 MLS/HR Objective Vital Signs Date Time Temp Pulse Resp B/P (MAP) Pulse Ox O2 Delivery O2 Flow Rate FiO2 07/09/17 15:07 36.7 62 16 159/86 (110) 90 Room Air 07/09/17 11:16 36.9 81 18 150/78 (102) 91 Room Air 07/09/17 08:20 67 147/62 (90) 07/09/17 08:14 90 Room Air 07/09/17 07:36 36.9 69 18 150/78 (102) 90 Room Air 07/09/17 07:00 Room Air 07/09/17 04:00 36.8 70 18 152/75 (100) 92 Room Air 07/08/17 23:28 Room Air 07/08/17 22:50 36.5 72 18 158/82 (107) 92 Room Air 07/08/17 21:00 36.5 82 16 155/81 (105) 92 Room Air 2.0 07/08/17 19:15 36.2 82 18 116/72 (87) 95 Nasal Cannula 2.0 07/08/17 18:00 Nasal Cannula 3.5 07/08/17 18:00 36.6 88 14 138/75 (96) 96 Nasal Cannula 2.0 07/08/17 17:42 76 16 138/51 (80) 96 Nasal Cannula 3.0 07/08/17 17:32 96 Nasal Cannula 3.0 07/08/17 17:15 36.9 85 18 158/93 (114) 94 Nasal Cannula 3.0 07/08/17 17:10 87 16 150/87 94 Nasal Cannula 4 07/08/17 16:55 87 16 149/89 95 Nasal Cannula 4 07/08/17 16:45 36.7 88 16 117/98 95 Nasal Cannula 4 07/08/17 16:35 89 17 157/98 95 Oxymask 10 07/08/17 16:25 89 14 155/88 95 Oxymask 10 07/08/17 16:16 36.8 88 18 165/90 95 Oxymask 10 Physical Exam General Appearance: WD/WN, no apparent distress Eyes: sclerae normal ENT: hearing grossly normal Neck: supple, no JVD, trachea midline Respiratory/Chest: lungs clear, normal breath sounds, no respiratory distress, no accessory muscle use Cardiovascular: regular rate, rhythm, no gallop, no murmur Abdomen: normal bowel sounds, + pertinent finding (ileostomy present) Extremities: no pedal edema, no calf tenderness Neurologic/Psychiatric: alert, oriented x 3 Skin: normal color, warm/dry Laboratory Results Last 24 Hours Test 07/08/17 16:43 07/09/17 07:31 Hemoglobin 12.7 g/dL 12.4 g/dL Hematocrit 40.0 % 39.4 % White Blood Count 10.49 K/uL Red Blood Count 4.30 M/uL Mean Corpuscular Volume 91.6 fL Mean Corpuscular Hemoglobin 28.8 pg Mean Corpuscular Hemoglobin Concent 31.5 g/dl Platelet Count 208 K/uL Mean Platelet Volume 10.0 fL Neutrophils (%) (Auto) 86.0 % Lymphocytes (%) (Auto) 5.6 % Monocytes (%) (Auto) 8.1 % Eosinophils (%) (Auto) 0.0 % Basophils (%) (Auto) 0.0 % Neutrophils # (Auto) 9.02 K/uL Lymphocytes # (Auto) 0.59 K/uL Monocytes # (Auto) 0.85 K/uL Eosinophils # (Auto) 0.00 K/uL Basophils # (Auto) 0.00 K/uL RDW Standard Deviation 52.8 fL RDW Coefficient of Variation 15.9 % Immature Granulocyte % (Auto) 0.3 % Immature Granulocyte # (Auto) 0.03 K/uL Sodium Level 137 mmol/L Potassium Level 4.7 mmol/L Chloride Level 104 mmol/L Carbon Dioxide Level 26 mmol/L Anion Gap 7.0 mmol/L Blood Urea Nitrogen 19 mg/dl Creatinine 1.01 mg/dl Est Creatinine Clear Calc Drug Dose 79.0 ml/min Estimated GFR () 83.9 Estimated GFR (Non- 72.4 BUN/Creatinine Ratio 18.4 Random Glucose 118 mg/dl Calcium Level 8.2 mg/dl Magnesium Level 2.3 mg/dl Assessment and Plan Colon CA S/P Open Resection and Ileostomy: - Pain management, IVF, DVT Prophylaxis per primary service CAD S/P SC and S/P Stent and HTN: STABLE - No chest pain and ambulates without issue - Metoprolol 25 mg daily GERD: Protonix 40 mg daily Hypothyroidism: Thyroid 90 mg daily Gout: Allopurinol 100 mg daily PRN Possible Apical Thrombus and L Atrium Dilation: - PCP following Continued [facility] stay due to: multiple IV medications needed
[2017-07-10 03:43] VITALS: BP 113/64; PULSE 73; TEMP 36.7; O2SAT 92
[2017-07-10] MEDS: LACTATED RINGER'S 1000ML 1,000 ML IV SCH ×2 (05:32→22:35)
[2017-07-10] MEDS: HEPARIN SOD 5000 UNIT/0.5 ML CARP SQ SCH ×3 (05:32→21:48)
[2017-07-10] MEDS: MoRPHine SULFATE 1 MG/ML 50 ML PCA CASS IV PRN ×3 (06:14→19:09)
--- NOTE | 2017-07-10 06:55 | SURGERY PROGRESS NOTE ---
DATE: 07/10/2017 This is second postoperative day status post laparoscopic assisted sigmoid rectal colon resection and protective ileostomy, umbilical hernia repair. He is doing very well. The I&O was noted and recorded as an emesis 150. The patient denies any emesis. In fact, he tolerated clear liquids yesterday fine. He has minimal discomfort. He has been up and around. His I&O has been negative. His last vitals showed a temperature of 36.7, pulse 73, respirations 16, blood pressure 113/64, O2 sats 92 on room air. Laboratory jefferson this morning is pending. The abdomen is softly distended, it is nontender. He has some ileostomy output. He has not had any activity through the rectum. At this point, we will increase to full liquid diet. He tolerated clear liquids without any problem, cut down his IV fluids. Once he achieves enough analgesic and tolerating a regular diet, the patient can be discharged, most likely Friday.
[2017-07-10] MEDS: ACETAMINOPHEN IV 1,000 MG in EMPTY BAG 0 ML IV SCH ×3 (07:29→23:19)
[2017-07-10] MEDS: SERTRALINE HCL 50 MG TAB PO SCH (07:30)
[2017-07-10] MEDS: METOPROLOL TARTRATE 25 MG TAB PO SCH (07:30)
[2017-07-10] MEDS: PANTOprazole SOD 40 MG TAB PO SCH (07:30)
[2017-07-10 07:47] VITALS: BP 167/84; PULSE 63; TEMP 36.4; O2SAT 93
[2017-07-10 07:49] LABS: BASO % 0.1 %; BASO ABS # 0.01 K/uL (0-0.2); COMPLETE YES; EOS % 1.6 %; HEMATOCRIT 35.3 % (42-52); IG% 0.3 %; LYMPH % 14.4 %; LYMPH ABS # 1.07 K/uL (1.2-3.4); MEAN CELL VOLUME 92.7 fL (80-100); MEAN CORPUSCULAR HEMOGLOBIN 28.9 pg (25-34); MEAN CORPUSCULAR HGB CONC 31.2 g/dl (32-36); MEAN PLATELET VOLUME 9.9 fL (7.4-10.4); MONO % 15.1 %; NEUT % 68.5 %; PLATELET COUNT 172 K/uL (130-400); RED BLOOD COUNT 3.81 M/uL (4.7-6.1); WHITE BLOOD COUNT 7.41 K/uL (4.8-10.8)
[2017-07-10 08:17] LABS: BUN/CREATININE RATIO 19.3 (10-20); CREATININE 0.93 mg/dl (0.60-1.40); POTASSIUM 4.1 mmol/L (3.5-5.1)
[2017-07-10 11:15] VITALS: BP 110/67; PULSE 67; TEMP 36.5; O2SAT 93
[2017-07-10] MEDS: ARMOUR THYROID 30 MG TAB PO SCH (14:07)
[2017-07-10] MEDS: SODIUM CHLORIDE 0.9% 1000ML 1,000 ML IV SCH (15:43)
--- NOTE | 2017-07-10 17:33 | Hospitalist Progress Note ---
Hospitalist Progress Note Date of Service Jul 10, 2017. Subjective Pt evaluation today including: conversation w/ patient, physical exam, chart review, lab review, review of studies, review of inpatient medication list Patient seen and evaluated. No acute events overnight. Patient is tolerating advancement in diet. Pain is adequately controlled. Having good output from ostomy with stoma beefy red. Verbalizes no issues at this time. Constitutional: No fever, No chills ENT: No nasal symptoms, No sore throat Respiratory: No cough, No shortness of breath Cardiovascular: No chest pain Abdomen: + pain (incision - well-controlled), No nausea, No vomiting Musculoskeletal: No swelling, No calf pain Male : No dysuria Heme: No abnormal bleeding/bruising Skin: No rash Medications Current Inpatient Medications Medications (Trade) Dose Ordered Sig/Kait Route Start Time Stop Time Status Last Admin Dose Admin Ondansetron HCl (Zofran Inj) 4 mg Q6H PRN IV 07/08/17 15:45 08/07/17 15:44 Heparin Sodium (Porcine) (Heparin Sq 5000 Unit/0.5ml) 5,000 unit Q8H SQ 07/08/17 22:00 08/07/17 21:59 Naloxone HCl (Narcan Inj) 0.1 mg Q5M PRN IV 07/08/17 15:45 08/07/17 15:44 Morphine Sulfate (moRPHine SULFATE TEST CELL TECHNICIAN) 50 mg PRN PRN IV 07/08/17 15:45 07/22/17 15:44 07/10/17 07:02 50 MG Sodium Chloride 1,000 ml @ 15 mls/hr Q24H IV 07/08/17 15:43 08/07/17 15:42 Allopurinol (Zyloprim Tab) 100 mg DAILY PRN PO 07/08/17 15:45 08/07/17 15:44 Metoprolol Tartrate (Lopressor Tab) 25 mg QAM PO 07/09/17 09:00 08/08/17 08:59 07/10/17 07:30 25 MG Sertraline HCl (Zoloft Tab) 50 mg QAM PO 07/09/17 09:00 08/08/17 08:59 07/10/17 07:30 50 MG Pantoprazole Sodium (Protonix Tab) 40 mg QAM PO 07/09/17 09:00 08/08/17 08:59 12/7/17 07:30 40 MG Thyroid ([place] Thyroid Tab) 90 mg DAILY PO 07/09/17 09:00 08/08/17 08:59 07/10/17 14:07 90 MG Miscellaneous Information (Order Awaiting Action) 1 ea QS N/A 07/09/17 00:00 08/08/17 00:00 Lactated Ringer's 1,000 ml @ 50 mls/hr Q20H IV 07/09/17 00:00 08/08/17 00:00 07/10/17 05:32 125 MLS/HR Oxycodone HCl (Roxicodone Immediate Rel Tab) 1 mg Q4H PRN PO 07/09/17 07:45 07/23/17 07:44 Acetaminophen 1000 mg/Empty Bag 100 ml @ 400 mls/hr Q8H IV 07/09/17 08:00 08/08/17 07:59 07/10/17 16:27 400 MLS/HR Objective Vital Signs Date Time Temp Pulse Resp B/P (MAP) Pulse Ox O2 Delivery O2 Flow Rate FiO2 07/10/17 11:15 36.5 67 18 110/67 (81) 93 Room Air 07/10/17 08:46 Room Air 07/10/17 07:47 36.4 63 16 167/84 (111) 93 Room Air 07/10/17 03:43 36.7 73 16 113/64 (80) 92 Room Air 07/10/17 00:05 Room Air 07/09/17 22:56 36.5 74 17 135/72 (93) 91 Room Air 07/09/17 20:17 36.5 66 16 152/61 (91) 92 Room Air Physical Exam General Appearance: WD/WN, no apparent distress Eyes: sclerae normal ENT: hearing grossly normal Neck: supple, no JVD, trachea midline Respiratory/Chest: lungs clear, normal breath sounds, no respiratory distress, no accessory muscle use Cardiovascular: regular rate, rhythm, no gallop, no murmur Abdomen: normal bowel sounds, + pertinent finding (ileostomy in RLQ draining loose green/dark colored stool; stoma is beefy red) Extremities: no pedal edema Neurologic/Psychiatric: alert, oriented x 3 Laboratory Results Last 24 Hours Test 07/10/17 07:01 White Blood Count 7.41 K/uL Red Blood Count 3.81 M/uL Hemoglobin 11.0 g/dL Hematocrit 35.3 % Mean Corpuscular Volume 92.7 fL Mean Corpuscular Hemoglobin 28.9 pg Mean Corpuscular Hemoglobin Concent 31.2 g/dl Platelet Count 172 K/uL Mean Platelet Volume 9.9 fL Neutrophils (%) (Auto) 68.5 % Lymphocytes (%) (Auto) 14.4 % Monocytes (%) (Auto) 15.1 % Eosinophils (%) (Auto) 1.6 % Basophils (%) (Auto) 0.1 % Neutrophils # (Auto) 5.07 K/uL Lymphocytes # (Auto) 1.07 K/uL Monocytes # (Auto) 1.12 K/uL Eosinophils # (Auto) 0.12 K/uL Basophils # (Auto) 0.01 K/uL RDW Standard Deviation 54.3 fL RDW Coefficient of Variation 16.1 % Immature Granulocyte % (Auto) 0.3 % Immature Granulocyte # (Auto) 0.02 K/uL Sodium Level 138 mmol/L Potassium Level 4.1 mmol/L Chloride Level 103 mmol/L Carbon Dioxide Level 31 mmol/L Anion Gap 4.0 mmol/L Blood Urea Nitrogen 18 mg/dl Creatinine 0.93 mg/dl Est Creatinine Clear Calc Drug Dose 85.8 ml/min Estimated GFR () 92.7 Estimated GFR (Non- 80.0 BUN/Creatinine Ratio 19.3 Random Glucose 84 mg/dl Calcium Level 8.0 mg/dl Assessment and Plan Colon CA S/P Open Resection and Ileostomy: - Pain management, IVF, DVT Prophylaxis per primary service CAD S/P TX and S/P Stent and HTN: STABLE - No chest pain and ambulates without issue - Metoprolol 25 mg daily GERD: Protonix 40 mg daily Hypothyroidism: Thyroid 90 mg daily Gout: Allopurinol 100 mg daily PRN Possible Apical Thrombus and L Atrium Dilation: - PCP following Patient is hemodynamically stable and tolerating diet and pain well-managed. Recommendations to continue home medications as previously prescribed. Hospitalist service will sign-off at this time. Do not hesitate to contact us for change in clinical course. Continued [facility] stay due to: multiple IV medications needed Discharge planning: home with home health
[2017-07-10 18:36] VITALS: BP 106/66; PULSE 83; TEMP 37.1; O2SAT 91; O2SAT 94
[2017-07-10 23:05] VITALS: BP 147/75; PULSE 64; TEMP 36.7; O2SAT 88; O2SAT 94
[2017-07-11] MEDS: HEPARIN SOD 5000 UNIT/0.5 ML CARP SQ SCH ×3 (05:17→22:00)
[2017-07-11 07:01] LABS: BASO % 0.6 %; BASO ABS # 0.04 K/uL (0-0.2); COMPLETE YES; EOS % 4.5 %; HEMATOCRIT 35.7 % (42-52); IG% 0.3 %; LYMPH % 23.9 %; LYMPH ABS # 1.58 K/uL (1.2-3.4); MEAN CORPUSCULAR HEMOGLOBIN 29.2 pg (25-34); MEAN CORPUSCULAR HGB CONC 31.4 g/dl (32-36); MEAN PLATELET VOLUME 9.9 fL (7.4-10.4); MONO % 13.3 %; NEUT % 57.4 %; PLATELET COUNT 165 K/uL (130-400); RED BLOOD COUNT 3.84 M/uL (4.7-6.1); WHITE BLOOD COUNT 6.62 K/uL (4.8-10.8)
[2017-07-11] MEDS: MoRPHine SULFATE 1 MG/ML 50 ML PCA CASS IV PRN (07:12)
[2017-07-11] MEDS: ACETAMINOPHEN IV 1,000 MG in EMPTY BAG 0 ML IV SCH (07:14)
[2017-07-11] MEDS: METOPROLOL TARTRATE 25 MG TAB PO SCH (07:15)
[2017-07-11] MEDS: PANTOprazole SOD 40 MG TAB PO SCH (07:15)
[2017-07-11] MEDS: ARMOUR THYROID 30 MG TAB PO SCH (07:15)
[2017-07-11] MEDS: SERTRALINE HCL 50 MG TAB PO SCH (07:15)
[2017-07-11 07:35] VITALS: BP 150/80; PULSE 62; TEMP 36.6; O2SAT 93
[2017-07-11 07:35] LABS: BUN/CREATININE RATIO 13.2 (10-20); CALCIUM 8.2 mg/dl (8.5-10.1); CREATININE 0.95 mg/dl (0.60-1.40); POTASSIUM 3.9 mmol/L (3.5-5.1)
[2017-07-11] MEDS ORDERED: MoRPHine SULFATE 2 MG/ML CARP IV PRN (08:15)
[2017-07-11] MEDS ORDERED: OXYCODONE/ACETAMINOPHEN 5-325 TAB PO PRN (08:15)
--- NOTE | 2017-07-11 08:17 | Surgery Progress Note ---
Surgery Progress Note Date of Service Jul 11, 2017. Subjective Post OP Day: 3 + feeling well, + pain controlled, + using DETENTION WORKER (less), + diet (full liquids, feels full after) Objective Vital Signs: Date Time Temp Pulse Resp B/P (MAP) Pulse Ox O2 Delivery O2 Flow Rate FiO2 07/11/17 07:35 36.6 62 14 150/80 (103) 93 Room Air 07/11/17 07:15 Room Air 07/10/17 23:05 36.7 64 16 147/75 (99) 88 Room Air 07/10/17 23:05 94 Nasal Cannula 2.0 07/10/17 20:00 Room Air 07/10/17 18:36 37.1 83 16 106/66 (79) 94 Room Air 07/10/17 16:00 Room Air 07/10/17 11:15 36.5 67 18 110/67 (81) 93 Room Air 07/10/17 08:46 Room Air Physical Exam: [place] drainage (20 cc, clearing), urine output (1075) Abdomen: soft, + distended (minimal), + pertinent finding (bilious ostomy output) Laboratory Results: Results Past 24 Hours Test 07/11/17 06:03 Range/Units White Blood Count 6.62 4.8-10.8 K/uL Red Blood Count 3.84 4.7-6.1 M/uL Hemoglobin 11.2 14.0-18.0 g/dL Hematocrit 35.7 42-52 % Mean Corpuscular Volume 93.0 80-100 fL Mean Corpuscular Hemoglobin 29.2 25-34 pg Mean Corpuscular Hemoglobin Concent 31.4 32-36 g/dl Platelet Count 165 130-400 K/uL Mean Platelet Volume 9.9 7.4-10.4 fL Neutrophils (%) (Auto) 57.4 % Lymphocytes (%) (Auto) 23.9 % Monocytes (%) (Auto) 13.3 % Eosinophils (%) (Auto) 4.5 % Basophils (%) (Auto) 0.6 % Neutrophils # (Auto) 3.80 1.4-6.5 K/uL Lymphocytes # (Auto) 1.58 1.2-3.4 K/uL Monocytes # (Auto) 0.88 0.11-0.59 K/uL Eosinophils # (Auto) 0.30 0-0.5 K/uL Basophils # (Auto) 0.04 0-0.2 K/uL RDW Standard Deviation 54.5 36.4-46.3 fL RDW Coefficient of Variation 16.0 11.5-14.5 % Immature Granulocyte % (Auto) 0.3 % Immature Granulocyte # (Auto) 0.02 0.00-0.02 K/uL Sodium Level 136 136-145 mmol/L Potassium Level 3.9 3.5-5.1 mmol/L Chloride Level 102 98-107 mmol/L Carbon Dioxide Level 29 21-32 mmol/L Anion Gap 5.0 3-11 mmol/L Blood Urea Nitrogen 12 7-18 mg/dl Creatinine 0.95 0.60-1.40 mg/dl Est Creatinine Clear Calc Drug Dose 84.0 ml/min Estimated GFR () 90.4 Estimated GFR (Non- 78.0 BUN/Creatinine Ratio 13.2 10-20 Random Glucose 83 70-99 mg/dl Calcium Level 8.2 8.5-10.1 mg/dl Assessment & Plan s/p LAR/protective ileostomy d/c DETENTION WORKER probably keep on full liquids for today ambulating halls labs stable
[2017-07-11 08:20] VITALS: O2SAT 93
[2017-07-11] MEDS ORDERED: OXYC-57 PO (09:55)
--- NOTE | 2017-07-11 09:57 | Discharge Instructions ---
Discharge Instructions Date of Service Jul 11, 2017. Admission Reason for Admission: Sigmoid Colon Cancer, Incarcerated Umbilical Herni Discharge Discharge Diagnosis / Problem: sigmoid resection Discharge Goals Goal(s): Decrease discomfort Activity Recommendations Activity Limitations: as noted below Lifting Limitations: no more than 10 pounds Shower/Bathe: no limitations Driving or Machine Use: 1 week . Instructions / Follow-Up Instructions / Follow-Up Dr. Rutledge in 1 week, call [phone] to schedule Empty drain 2-3 times daily or as needed Current Hospital Diet Patient's current hospital diet: Low Fiber Diet Discharge Diet Recommended Diet: Regular Diet Procedures Procedures Performed: Laparoscopic-Assisted Sigmoid Colon Resection, , and Repair Incarcerated Umbilical Hernia, Protection Colostomy Pending Studies Studies pending at discharge: yes List of pending studies: pathology Laboratory Results Hemoglobin A1c Test 05/26/17 11:33 Range/Units Estimated Average Glucose 120 mg/dl Hemoglobin A1c 5.8 H 4.5-5.6 % Lipid Panel Test 05/26/17 11:33 Range/Units Triglycerides Level 148 0-150 mg/dl Cholesterol Level 188 0-200 mg/dl HDL Cholesterol 41 mg/dl Cholesterol/HDL Ratio 4.6 LDL Cholesterol, Calculated 117 mg/dl Medical Emergencies . Who to Call and When: Medical Emergencies: If at any time you feel your situation is an emergency, please call 911 immediately. . Non-Emergent Contact Non-Emergency issues call your: Surgeon Call Non-Emergent contact if: you have a fever, temperature is above 101.5, your pain is not controlled, wound has increased drainage, wound has increased redness, you have any medication questions . "Provider Documentation" section prepared by Gil Penaloza. . VTE Core Measure Inpt VTE Proph given/why not?: Unfractionated heparin SQ, SCD's [place] Drug Monitoring Program Search Results: no issues identified
[2017-07-11 12:00] VITALS: BP 124/62; PULSE 76; TEMP 36.5; O2SAT 93
[2017-07-11 15:20] VITALS: BP 134/73; PULSE 64; TEMP 36.7; O2SAT 93
[2017-07-11] MEDS: LACTATED RINGER'S 1000ML 1,000 ML IV SCH (20:39)
[2017-07-11 22:50] VITALS: BP 164/88; PULSE 64; TEMP 36.7; O2SAT 93
[2017-07-12] MEDS: HEPARIN SOD 5000 UNIT/0.5 ML CARP SQ SCH ×3 (05:43→21:45)
--- NOTE | 2017-07-12 06:38 | Surgery Progress Note ---
Surgery Progress Note Date of Service Jul 12, 2017. Subjective doing well, tolerating some food unsure about ileostomy- functioning Objective Vital Signs: Date Time Temp Pulse Resp B/P (MAP) Pulse Ox O2 Delivery O2 Flow Rate FiO2 07/12/17 00:00 Room Air 07/11/17 22:50 36.7 64 16 164/88 (113) 93 Room Air 07/11/17 20:25 Room Air 07/11/17 15:20 36.7 64 18 134/73 (93) 93 Room Air 07/11/17 12:00 36.5 76 16 124/62 (82) 93 Room Air 07/11/17 08:20 93 Room Air 07/11/17 07:35 36.6 62 14 150/80 (103) 93 Room Air 07/11/17 07:15 Room Air General Appearance: no apparent distress Respiratory/Chest: no respiratory distress Abdomen: soft, + pertinent finding (good ileostomy output) Assessment & Plan 07/12/17- progressing well- will be sure pt has visiting nurse d/c IV fluids- plan d/c tomorrow
[2017-07-12] MEDS: SERTRALINE HCL 50 MG TAB PO SCH (07:56)
[2017-07-12] MEDS: PANTOprazole SOD 40 MG TAB PO SCH (07:56)
[2017-07-12] MEDS: ARMOUR THYROID 30 MG TAB PO SCH (07:56)
[2017-07-12] MEDS: METOPROLOL TARTRATE 25 MG TAB PO SCH (07:56)
[2017-07-12 08:03] VITALS: BP 165/92; PULSE 68; TEMP 36.6; O2SAT 95
[2017-07-12 12:17] VITALS: BP 149/87
[2017-07-12 15:11] VITALS: BP 122/80; PULSE 78; TEMP 36.4; O2SAT 95
[2017-07-12 22:45] VITALS: BP 166/90; PULSE 80; TEMP 36.4; O2SAT 96
[2017-07-13] MEDS: HEPARIN SOD 5000 UNIT/0.5 ML CARP SQ SCH (06:00)
--- NOTE | 2017-07-13 06:08 | Surgery Progress Note ---
Surgery Progress Note Date of Service Jul 13, 2017. Subjective + feeling well Objective Vital Signs: Date Time Temp Pulse Resp B/P (MAP) Pulse Ox O2 Delivery O2 Flow Rate FiO2 07/12/17 23:45 Room Air 07/12/17 22:45 36.4 80 18 166/90 (115) 96 Room Air 07/12/17 15:50 Room Air 07/12/17 15:11 36.4 78 20 122/80 (94) 95 Room Air 07/12/17 12:17 149/87 (107) 07/12/17 08:03 36.6 68 17 165/92 (116) 95 Room Air 07/12/17 08:00 Room Air General Appearance: no apparent distress Respiratory/Chest: no respiratory distress Abdomen: non distended, soft Incision(s): intact Assessment & Plan 07/13/17- doing well, tolerating diet d/c home today- f/u surgical office visiting nurse 07/12/17- progressing well- will be sure pt has visiting nurse d/c IV fluids- plan d/c tomorrow 07/12/17- progressing well- will be sure pt has visiting nurse d/c IV fluids- plan d/c tomorrow
[2017-07-13 07:02] VITALS: BP 166/90; PULSE 80; TEMP 36.4; O2SAT 96
[2017-07-13 07:30] VITALS: BP 132/87; PULSE 68; TEMP 36.7; O2SAT 97
[2017-07-13] MEDS: SERTRALINE HCL 50 MG TAB PO SCH ×2 (08:18→08:21)
[2017-07-13] MEDS: PANTOprazole SOD 40 MG TAB PO SCH ×2 (08:18→08:21)
[2017-07-13] MEDS: ARMOUR THYROID 30 MG TAB PO SCH ×2 (08:18→08:21)
[2017-07-13] MEDS: METOPROLOL TARTRATE 25 MG TAB PO SCH ×2 (08:18→08:21)
--- NOTE | 2017-07-15 08:56 | DISCHARGE SUMMARY ---
PRIMARY DISCHARGE DIAGNOSIS: Rectosigmoid cancer. SECONDARY DISCHARGE DIAGNOSES: 1. Hypertension. 2. Coronary artery disease. 3. Gastroesophageal reflux disease. 4. Hypothyroidism. 5. Gout. PROCEDURES PERFORMED: Laparoscopic assisted sigmoid and proximal rectal resection with primary side-to-end anastomosis, repair of incarcerated umbilical hernia and protective ileostomy. CONSULTATIONS: [facility] hospitalist to assist in medical management. HOSPITAL COURSE: The patient is a 77-year-old male with a biopsy proven adenocarcinoma on colonoscopy, now brought in through same day and taken to the operating room for a laparoscopic assisted resection of rectosigmoid colon. The procedure was well tolerated. He was transferred to the surgical floor. Medical service was consulted routinely. Subcutaneous heparin and SCDs were used for DVT prophylaxis. Perioperative antibiotics were continued for 24 hours. He was started on clear liquids on postoperative day #1. By day #2, he had some bilious output from a loop ileostomy. He was able to tolerate full liquids. Araujo catheter was removed and he was able to void without any difficulties. By day #3, he had increased ileostomy output. He was advanced to a regular diet. He continued to increase activity over the next 2 days. He required some assistance with the ileostomy care. Arrangements were made for home health. On postoperative day #5, he was stable for discharge. His incision was benign. A Kelsy drain had been placed intraoperative and was removed on postoperative day #3. [place] drain was left in the pelvis. We will leave that likely until he has a contrast study in the next week or so. DISCHARGE INSTRUCTIONS: Discharge home. Follow up with Dr. Rutledge in 1 week for staple removal. He will have home health to assist with the ileostomy care. DISCHARGE MEDICATIONS: Percocet 1-2 tablets every 4 hours as needed. Resume home medications. Allopurinol 100 mg daily, aspirin 81 mg daily, colchicine 0.6 mg as needed, Lopressor 25 mg daily, daily multivitamin, Prilosec 20 mg daily, Zoloft 50 mg daily, Thyroid [place] 90 mg daily, Anoro inhaler 1 puff daily as needed, vitamin D and vitamin B supplements, ketoconazole and Lamisil topical cream as needed.
== END 2017-07-13 10:48 | disposition home health service (06) | DRG 331 ==
LOC: C.ACU 09:26 → C.MSN 15:51 → ENRESERV 16:55
PROVIDERS: ADMIT Surgery; ATTEND Surgery
PROC: 0D1B0Z4 Bypass Ileum to Cutaneous, Open Approach (ICD-10-PCS; principal; 2017-07-08 12:00)
PROC: 0WQF4ZZ Repair Abdominal Wall, Percutaneous Endoscopic Approach (ICD-10-PCS; principal; 2017-07-08 12:00)
PROC: 0D1M0ZP Bypass Descending Colon to Rectum, Open Approach (ICD-10-PCS; principal; 2017-07-08 12:00)
DX: C19 Malignant neoplasm of rectosigmoid junction (principal); K42.9 Umbilical hernia without obstruction or gangrene; I10 Essential (primary) hypertension; I25.10 Atherosclerotic heart disease of native coronary artery without angina pectoris; K21.9 Gastro-esophageal reflux disease without esophagitis; E03.9 Hypothyroidism, unspecified; M10.9 Gout, unspecified; F41.9 Anxiety disorder, unspecified; I25.2 Old myocardial infarction; Z79.82 Long term (current) use of aspirin; Z79.899 Other long term (current) drug therapy

== ENCOUNTER → 2017-07-31 | Outpatient (CLI) | payer MEDICARE ==
[~2017-07-31] MED LIST changes: -AMOX-CLAV PO; -KRIL1000 PO; -LACTATED RINGER'S 1000ML 1,000 ML IV SCH; +OXYC-57 PO
--- NOTE | 2017-07-31 08:59 | DIAGNOSTIC IMAGING REPORT ---
SINGLE CONTRAST GASTROGRAFIN ENEMA CLINICAL HISTORY: Adenocarcinoma of the sigmoid colon status post sigmoid and proximal rectal resection with primary anastomosis and protective ileostomy. Evaluate anastomosis. COMPARISON STUDY: CT of the abdomen and pelvis June 10, 2017. FLUOROSCOPY TIME: 2.4 minutes. FINDINGS: A single contrast Gastrografin enema was performed through the rectum following placement of a enema tip. 14 fluoroscopic images were obtained. Market Development Director image demonstrates several bilateral renal calculi. Bowel gas pattern is normal. Right lower quadrant ileostomy is noted. Distention of the rectum and colon was adequate. Note is made of extensive sigmoid diverticulosis. The colorectal anastomosis is patent. There is no contrast extravasation to suggest an anastomotic leak. Contrast reached the cecum. Mucosal detail is suboptimal on this single contrast exam. IMPRESSION: 1. Patent colorectal anastomosis without contrast extravasation to suggest leak. 2. Extensive sigmoid diverticulosis. 3. Suboptimal mucosal detail given single contrast technique. Electronically signed by: Caio Borden M.D. 07/31/2017 8:57 AM Dictated Date/Time: 07/31/2017 8:53 AM
== END | disposition home or self-care (01) ==
LOC: C.RAD 07:24
PROVIDERS: ATTEND Surgery
DX: C18.7 Malignant neoplasm of sigmoid colon (principal); K57.30 Diverticulosis of large intestine without perforation or abscess without bleeding

== ENCOUNTER 2017-08-19 04:45 | Inpatient (IN) | payer MEDICARE, OTHER ==
[2017-08-11 16:19] VITALS: BMI 29.0
[~2017-08-19] VITALS: Ht 182.9 cm; Wt 99.1 kg
[2017-08-19] VITALS (10 sets, daily range): BP systolic 111–165; BP diastolic 65–94; PULSE 59–95; TEMP 34.9–37.1; O2SAT 92–97; Ht 182.9 cm; Wt 99.1 kg
[~2017-08-19 04:45] MED LIST changes: -ALLO100T PO; -IRON PO; -OXYC-57 PO; -UMEC1AER INH; -VITAMIN B PO; -VITAMIN D PO
[2017-08-19] MEDS ORDERED: LACTATED RINGER'S 1000ML 1,000 ML IV SCH (06:00)
--- NOTE | 2017-08-19 06:26 | History & Physical Bridge Note ---
H&P Re-Evaluation Bridge Note: I have examined the patient, reviewed the History & Physical and in the interval since the performance of the History & Physical I have noted the following changes of clinical significance: No changes noted changing ileostomy bag, no family here may be here later
[2017-08-19] MEDS ORDERED: FENTANYL CITRATE INJ 50 MCG/1 ML 2 ML VIAL ONE (06:41)
[2017-08-19] MEDS ORDERED: PROPOFOL IV EMULSION 10 MG/ML 20 ML VIAL IV ONE (06:41)
[2017-08-19] MEDS ORDERED: ONDANSETRON INJ 2 MG/ML 2 ML VIAL ONE (06:41)
[2017-08-19] MEDS ORDERED: LIDOCAINE HCL 2% 2 ML VIAL (20MG/ML) ONE (06:41)
[2017-08-19] MEDS ORDERED: ACETAMINOPHEN 1000 MG/100 ML IV IV ONE (06:49)
[2017-08-19] MEDS ORDERED: KETOROLAC TROMETHAMINE 30 MG/ML VIAL IV. PRN (07:45)
[2017-08-19] MEDS ORDERED: ONDANSETRON INJ 2 MG/ML 2 ML VIAL IV PRN ×2 (07:45→08:30)
[2017-08-19] MEDS ORDERED: HYDROmorphone INJ 2 MG/ML SYR/VIAL IV PRN (07:45)
[2017-08-19] MEDS ORDERED: LABETALOL HCL IV 5 MG/ML 20ML IV PRN (07:45)
[2017-08-19] MEDS ORDERED: ATROPINE SULFATE 0.1 MG/ML 5ML SYR IV PRN (07:45)
[2017-08-19] MEDS ORDERED: GLYCOPYRROLATE INJ 0.2 MG/ML VIAL ONE (07:50)
[2017-08-19] MEDS ORDERED: NEOSTIGMINE METHYLSULFATE 5 MG/5 ML SYR ONE (07:50)
--- NOTE | 2017-08-19 08:18 | [facility] Post Operative Brief Note ---
Immediate Operative Summary Operative Date Aug 19, 2017. Pre-Operative Diagnosis Carcinoma of sigmoid colon status post resection with protective ileostomy Post-Operative Diagnosis same as pre-operative Procedure(s) Performed Closure of Ileostomy, Open Surgeon Dr. Rutledge Steam Tunnel Feeder Surgeon(s) LITTLE Pollack Estimated Blood Loss 15ml Findings as preop Specimens Specimen A) Ileostomy Drains 1/4 inch sub cut ostomy site
[2017-08-19] MEDS ORDERED: ACETAMINOPHEN IV 100 ML IV PRN (08:30)
[2017-08-19] MEDS ORDERED: ROCURONIUM BROMIDE 10 MG/ML 5 ML VIAL IV ONE (08:31)
--- NOTE | 2017-08-19 08:33 | OPERATIVE REPORT ---
DATE OF OPERATION: 08/19/2017 SURGEON: Greg Rutledge MD. HEAD MILLER: Gil Penaloza PA-C. PREOPERATIVE DIAGNOSIS: Protective ileostomy, status post sigmoid rectal carcinoma resection. POSTOPERATIVE DIAGNOSIS: Same. PROCEDURE: Closure of ileostomy. SUMMARY: The patient was brought into the operating room theater. The appliance was taken off the ostomy site. The area was prepped with Betadine solution and properly draped. Systemic antibiotics was made. We made an elliptical incision around the ostomy site, deepened through subcutaneous tissue. We went onto the abdominal wall fascia where we circumferentially freed that up from the loop of terminal ileum that was easily appreciated and delivered out of the wound. There was some subcutaneous oozers that we controlled hemostasis by cautery or sutures. We had placed 1 silk suture intraabdominally at the time of the ileostomy just to keep it from protruding and we identified the silk suture and cut it. As stated, the terminal ileum was delivered very easily up in the wound. We then resected the gross abnormality, the thickened area and then the 2 sites were approximated with end-to-end anastomosis using 3-0 silk outer layer and 3-0 chromic inner layer. The anastomosis was checked for patency and appeared quite satisfactory and the viability of the tissue was excellent. We then closed the mesentery that we had created to resect in that area by first hemostasis and closed with interrupted 3-0 silk. We then returned the viscera intraabdominally. The patient had a significant prominent peritoneum, therefore we closed that separately with a #1 chromic running suture and then reapproximated over that with interrupted PDS to the rectus muscles and then closed the anterior rectus sheath with interrupted #1 PDS. The area was checked for hemostasis and appeared satisfactory. I did place a quarter inch Kelsy drain in the subQ, sutured out laterally and medially with 3-0 silk suture to the skin edge, jossy for the skin edges. Dressing was applied. The procedure was tolerated well by the patient. Estimated blood loss approximately 15 mL. The patient was taken to recovery room in good condition. I attest to the content of the Intraoperative Record and any orders documented therein. Any exception s are noted below.
[2017-08-19] MEDS ORDERED: KETOROLAC TROMETHAMINE 30 MG/ML VIAL ONE (08:50)
[2017-08-19] MEDS: HYDROmorphone INJ 1 MG/ML SYR ONE ×2 (08:59→09:01)
[2017-08-19] MEDS: LACTATED RINGER'S 1000ML 1,000 ML IV SCH ×2 (10:22→19:51)
--- NOTE | 2017-08-19 10:22 | Anesthesiology Progress Note ---
Anesthesia Post Op Note Date & Time Aug 19, 2017 at 10:22 Vital Signs Vital Signs Past 12 Hours Date Time Temp Pulse Resp B/P (MAP) Pulse Ox O2 Delivery O2 Flow Rate FiO2 08/19/17 10:00 97 Nasal Cannula 2.0 08/19/17 09:59 97 Nasal Cannula 2.0 08/19/17 09:35 37 71 12 126/73 94 Nasal Cannula 2 08/19/17 09:25 72 12 129/70 94 Nasal Cannula 2 08/19/17 09:15 76 12 136/90 96 Nasal Cannula 2 08/19/17 09:05 73 12 140/78 95 Nasal Cannula 2 08/19/17 08:55 70 12 161/88 97 Nasal Cannula 2 08/19/17 08:45 81 12 143/84 95 Oxymask 10 08/19/17 08:35 88 12 151/102 96 Oxymask 10 08/19/17 08:26 36.7 94 12 177/99 96 Oxymask 10 08/19/17 05:50 36.4 69 18 157/94 94 Room Air Notes Mental Status: alert / awake / arousable, participated in evaluation Pt Amnestic to Procedure: Yes Nausea / Vomiting: adequately controlled Pain: adequately controlled Airway Patency, RR, SpO2: stable & adequate BP & HR: stable & adequate Hydration State: stable & adequate Anesthetic Complications: no major complications apparent
[2017-08-19] MEDS: PANTOprazole SOD 40 MG TAB PO SCH (11:22)
[2017-08-19] MEDS: ASPIRIN 81 MG CHEW PO SCH (11:22)
[2017-08-19] MEDS: METOPROLOL TARTRATE 25 MG TAB PO SCH (11:22)
[2017-08-19] MEDS: SERTRALINE HCL 50 MG TAB PO SCH (11:22)
[2017-08-19] MEDS: ARMOUR THYROID 30 MG TAB PO SCH (11:22)
[2017-08-19] MEDS ORDERED: CEFOXITIN SOD 1 GM VIAL ONE (12:33)
[2017-08-19] MEDS: HEPARIN SOD 5000 UNIT/0.5 ML CARP SQ SCH ×2 (13:21→21:09)
[2017-08-19] MEDS: MoRPHine SULFATE 4 MG/ML 1 ML CARP\\VIAL IV PRN ×2 (17:27→21:10)
[2017-08-20] VITALS (10 sets, daily range): BP systolic 107–136; BP diastolic 68–86; PULSE 87–103; TEMP 36.8–38.7; O2SAT 90–95
[2017-08-20] MEDS: MoRPHine SULFATE 4 MG/ML 1 ML CARP\\VIAL IV PRN ×2 (04:56→07:13)
[2017-08-20] MEDS: LACTATED RINGER'S 1000ML 1,000 ML IV SCH ×2 (05:07→14:21)
[2017-08-20] MEDS: HEPARIN SOD 5000 UNIT/0.5 ML CARP SQ SCH ×3 (05:15→21:28)
[2017-08-20] MEDS: METOPROLOL TARTRATE 25 MG TAB PO SCH (07:11)
[2017-08-20] MEDS: PANTOprazole SOD 40 MG TAB PO SCH (07:11)
[2017-08-20] MEDS: ASPIRIN 81 MG CHEW PO SCH (07:12)
[2017-08-20] MEDS: SERTRALINE HCL 50 MG TAB PO SCH (07:12)
[2017-08-20] MEDS: ARMOUR THYROID 30 MG TAB PO SCH (07:12)
[2017-08-20 07:49] LABS: BASO % 0.2 %; BASO ABS # 0.02 K/uL (0-0.2); EOS ABS # 0.09 K/uL (0-0.5); HEMATOCRIT 36.6 % (42-52); HEMOGLOBIN 11.5 g/dL (14.0-18.0); IG# 0.03 K/uL (0.00-0.02); LYMPH % 8.4 %; LYMPH ABS # 0.76 K/uL (1.2-3.4); MEAN CELL VOLUME 89.1 fL (80-100); MEAN CORPUSCULAR HGB CONC 31.4 g/dl (32-36); MONO ABS # 1.17 K/uL (0.11-0.59); NEUT % 77.1 %; NEUT ABS # 6.94 K/uL (1.4-6.5); PLATELET COUNT 193 K/uL (130-400); RED CELL DISTRIBUTION WIDTH CV 14.8 % (11.5-14.5); WHITE BLOOD COUNT 9.01 K/uL (4.8-10.8)
[2017-08-20] MEDS: SODIUM CHLORIDE 0.9% 1000ML 1,000 ML IV SCH (07:52)
[2017-08-20] MEDS ORDERED: NALOXONE HCL 0.4 MG/1 ML VIAL/CARP IV PRN (08:00)
--- NOTE | 2017-08-20 08:01 | SURGERY PROGRESS NOTE ---
DATE: 08/20/2017 Ben is alert, coherent. He is complaining of some pain along the incision and would like to have a FRACTIONATION PLANT SUPERVISOR. The intraoperative findings were discussed with the patient. He is alert, coherent. Last vitals showed a temperature of 36.5, pulse 96, respirations 18, blood pressure 127/77. O2 sats 93 on room air. I&O, he had 1695 urine overnight. Laboratory is pending this morning. His abdomen is minimally distended. There is some old drainage along the dressing in the right lower quadrant. He does have a Kelsy drain in the subQ. At this point we will encourage activity. Keep him on a clear liquid diet and start him on a FRACTIONATION PLANT SUPERVISOR pump.
[2017-08-20 08:21] LABS: CALCIUM 8.3 mg/dl (8.5-10.1); CREATININE 0.92 mg/dl (0.60-1.40); POTASSIUM 4.3 mmol/L (3.5-5.1)
--- NOTE | 2017-08-20 08:26 | Anesthesiology Progress Note ---
Anesthesia Post Op Note Date & Time Aug 20, 2017 at 08:25 Vital Signs Pain Intensity: 4.0 Vital Signs Past 12 Hours Date Time Temp Pulse Resp B/P (MAP) Pulse Ox O2 Delivery O2 Flow Rate FiO2 08/20/17 08:07 38.7 87 20 110/68 (82) 94 Room Air 08/20/17 07:10 Room Air 08/20/17 04:00 36.9 96 18 127/77 (94) 93 Room Air 08/20/17 00:10 Room Air 08/19/17 23:00 37.1 95 18 139/75 (96) 92 Room Air 08/19/17 21:00 36.3 164/80 (108) Notes Mental Status: alert / awake / arousable, participated in evaluation Pt Amnestic to Procedure: Yes Nausea / Vomiting: adequately controlled Pain: adequately controlled Airway Patency, RR, SpO2: stable & adequate BP & HR: stable & adequate Hydration State: stable & adequate Anesthetic Complications: no major complications apparent
[2017-08-20] MEDS: MoRPHine SULFATE 1 MG/ML 50 ML PCA CASS IV PRN ×2 (08:43→18:53)
[2017-08-21] MEDS: LACTATED RINGER'S 1000ML 1,000 ML IV SCH ×2 (00:30→20:47)
[2017-08-21 03:26] VITALS: BP 113/76; PULSE 98; TEMP 36.8; O2SAT 92
[2017-08-21] MEDS: HEPARIN SOD 5000 UNIT/0.5 ML CARP SQ SCH ×3 (05:56→20:46)
[2017-08-21] MEDS: MoRPHine SULFATE 1 MG/ML 50 ML PCA CASS IV PRN ×2 (06:49→15:29)
[2017-08-21] MEDS: SODIUM CHLORIDE 0.9% 1000ML 1,000 ML IV SCH (06:55)
[2017-08-21 07:24] VITALS: BP 127/84; PULSE 95; TEMP 36.7; O2SAT 93
[2017-08-21] MEDS: PANTOprazole SOD 40 MG TAB PO SCH (07:27)
[2017-08-21] MEDS: ASPIRIN 81 MG CHEW PO SCH (07:27)
[2017-08-21] MEDS: ARMOUR THYROID 30 MG TAB PO SCH (07:27)
[2017-08-21] MEDS: METOPROLOL TARTRATE 25 MG TAB PO SCH (07:28)
[2017-08-21] MEDS: SERTRALINE HCL 50 MG TAB PO SCH (07:28)
--- NOTE | 2017-08-21 07:31 | Surgery Progress Note ---
Surgery Progress Note Date of Service Aug 21, 2017. Subjective Post OP Day: 2 + feeling well, + ambulating, + using GREEN PRIZE PACKER, + diet (clears), No bowel movement, No flatus, No nausea Objective Vital Signs: Date Time Temp Pulse Resp B/P (MAP) Pulse Ox O2 Delivery O2 Flow Rate FiO2 08/21/17 07:24 36.7 95 18 127/84 (98) 93 Room Air 08/21/17 03:26 36.8 98 18 113/76 (88) 92 Room Air 08/20/17 23:23 36.9 103 18 111/70 (84) 93 Room Air 08/20/17 19:45 Room Air 08/20/17 19:31 36.9 101 16 136/86 (103) 90 Room Air 08/20/17 14:55 36.9 98 20 118/71 (87) 91 Room Air 08/20/17 13:10 36.8 91 22 113/74 (87) 95 Room Air 08/20/17 12:02 37.3 87 20 130/68 (88) 94 Room Air 08/20/17 11:10 37.2 93 20 107/69 (82) 95 Room Air 08/20/17 10:03 37.1 89 18 114/77 (89) 95 Room Air 89 08/20/17 08:29 94 Room Air 08/20/17 08:07 38.7 87 20 110/68 (82) 94 Room Air Physical Exam: urine output (2075/400) Abdomen: non distended, soft Incision(s): intact (dressing) Assessment & Plan s/p ileostomy takedown advance to full liquids cont GREEN PRIZE PACKER ambulating decrease IVF
--- NOTE | 2017-08-21 08:09 | SURGERY PROGRESS NOTE ---
DATE: 08/21/2017 Ben' second postoperative day status post closure protective ileostomy. He is resting comfortably. He has had minimal abdominal discomfort. He would like more to eat. His last vitals showed a temperature of 36.7, pulse 95, respirations 18, blood pressure 127/84, O2 sat 92 on room air. I&O, he had 2000 mL out yesterday, 400 overnight. The abdomen is completely benign. The dressing in the right lower quadrant is intact. It has been changed. He does have a Kelsy drain that we will remove tomorrow. He has not had any flatus yet. Overall, he is progressing well. He refuses subQ heparin therefore we will continue with SCDs.
[2017-08-21 16:26] VITALS: BP 117/70; PULSE 102; TEMP 37; O2SAT 94
[2017-08-21 19:58] VITALS: BP 82/56; PULSE 128; TEMP 36.7; O2SAT 91
[2017-08-21 20:36] VITALS: BP 126/84
[2017-08-21 22:36] VITALS: BP 113/72; PULSE 101; TEMP 37; O2SAT 93
[2017-08-22 03:25] VITALS: BP 126/92; PULSE 95; TEMP 36.8; O2SAT 91
[2017-08-22] MEDS: HEPARIN SOD 5000 UNIT/0.5 ML CARP SQ SCH ×3 (06:00→21:37)
[2017-08-22] MEDS ORDERED: OXYCODONE/ACETAMINOPHEN 5-325 TAB PO PRN (06:45)
--- NOTE | 2017-08-22 07:19 | SURGERY PROGRESS NOTE ---
DATE: 08/22/2017 Ben is third postoperative day status post closure of ileostomy. He was doing well yesterday. He had a little phlegm last night and maybe a little emesis, nothing significant. He has been moving his bowels. His last vitals showed him to have a temperature of 36.8, pulse 95, respirations 18, blood pressure 129/92, and O2 sats 91 on room air. I&O, he is still slightly positive at this time. His abdomen is softly distended and is nontender. The ileostomy site, the Kelsy drain is still intact, had some serous drainage. We will take the [place] out today. At this point, we will advance his diet and discontinue the EMPLOYEE SERVICE OFFICER. He has not been using them and hopefully by tomorrow, he will be ready to be discharged. ROSS
[2017-08-22 07:21] LABS: BASO % 0.2 %; BASO ABS # 0.02 K/uL (0-0.2); EOS % 1.2 %; HEMATOCRIT 37.3 % (42-52); HEMOGLOBIN 11.8 g/dL (14.0-18.0); IG# 0.03 K/uL (0.00-0.02); LYMPH % 15.3 %; LYMPH ABS # 1.26 K/uL (1.2-3.4); MEAN CELL VOLUME 89.4 fL (80-100); MEAN CORPUSCULAR HEMOGLOBIN 28.3 pg (25-34); MEAN CORPUSCULAR HGB CONC 31.6 g/dl (32-36); MEAN PLATELET VOLUME 9.5 fL (7.4-10.4); MONO % 12.3 %; MONO ABS # 1.01 K/uL (0.11-0.59); NEUT % 70.6 %; PLATELET COUNT 183 K/uL (130-400); RED CELL DISTRIBUTION WIDTH CV 15.1 % (11.5-14.5); RED CELL DISTRIBUTION WIDTH SD 48.8 fL (36.4-46.3); WHITE BLOOD COUNT 8.22 K/uL (4.8-10.8)
[2017-08-22 07:29] VITALS: BP 143/92; PULSE 81; TEMP 36.9; O2SAT 92
[2017-08-22 07:52] LABS: CALCIUM 8.9 mg/dl (8.5-10.1); CREATININE 1.31 mg/dl (0.60-1.40); POTASSIUM 4.9 mmol/L (3.5-5.1)
[2017-08-22] MEDS ORDERED: OXYC-57 PO (09:13)
--- NOTE | 2017-08-22 09:15 | Discharge Instructions ---
Discharge Instructions Date of Service Aug 22, 2017. Admission Reason for Admission: Colon Cancer, Ileostomy Status Discharge Discharge Diagnosis / Problem: ileostomy takedown Discharge Goals Goal(s): Improve function Activity Recommendations Activity Limitations: as noted below Lifting Limitations: no more than 10 pounds Shower/Bathe: no limitations Driving or Machine Use: resume 3 days after discharge . Instructions / Follow-Up Instructions / Follow-Up Dr. Rutledge in 1 week, call [phone] to schedule or for any questions Current Hospital Diet Patient's current hospital diet: Full Liquid Diet, Low Fiber Diet Discharge Diet Recommended Diet: Low Fiber Diet Procedures Procedures Performed: Closure of Ileostomy, Open Pending Studies Studies pending at discharge: no Laboratory Results Hemoglobin A1c Test 05/26/17 11:33 Range/Units Estimated Average Glucose 120 mg/dl Hemoglobin A1c 5.8 H 4.5-5.6 % Lipid Panel Test 05/26/17 11:33 Range/Units Triglycerides Level 148 0-150 mg/dl Cholesterol Level 188 0-200 mg/dl HDL Cholesterol 41 mg/dl Cholesterol/HDL Ratio 4.6 LDL Cholesterol, Calculated 117 mg/dl Medical Emergencies . Who to Call and When: Medical Emergencies: If at any time you feel your situation is an emergency, please call 911 immediately. . Non-Emergent Contact Non-Emergency issues call your: Surgeon Call Non-Emergent contact if: you have a fever, temperature is above 101.5, your pain is not controlled, wound has increased drainage, wound has increased redness . "Provider Documentation" section prepared by Gil Penaloza. . VTE Core Measure Inpt VTE Proph given/why not?: Unfractionated heparin SQ, SCD's
[2017-08-22] MEDS: SERTRALINE HCL 50 MG TAB PO SCH (09:16)
[2017-08-22] MEDS: PANTOprazole SOD 40 MG TAB PO SCH (09:16)
[2017-08-22] MEDS: ARMOUR THYROID 30 MG TAB PO SCH (09:17)
[2017-08-22] MEDS: LACTATED RINGER'S 1000ML 1,000 ML IV SCH (09:17)
[2017-08-22] MEDS: ASPIRIN 81 MG CHEW PO SCH (09:17)
[2017-08-22] MEDS: METOPROLOL TARTRATE 25 MG TAB PO SCH (09:17)
--- NOTE | 2017-08-22 10:13 | Clinical Documentation Query ---
Mr. MCARTHURROBERTH : CLINICAL DOCUMENTATION QUERY Patient is a 77 year old male who on 08/19 underwent ileostomy closure. On 08/20, BUN and creatinine were 10 mg/dl and 0.92 mg/dl, with an estimated GFR of 81 ml/min. POD #3, values are 22 mg/dl, 1.31 mg/dl, and 53 ml/min. He is recieiving IVF and has been monitored with serial chemistries. Please clarify as clinically appropriate. Thank you. In your clinical opinion is this patient being managed for: ( ) Acute kidney injury (this is NOT a complication of care) ( ) Not Agree ( ) Other explanation of clinical findings (Please Explain) ( ) Unable to determine (Please Define) ( ) Need to Discuss The medical record reflects the following clinical findings, treatment, and risk factors. Clinical Indicators: As above Treatment: IVF, serial chemistries Risk Factors: Age, surgery, medications Please clarify and document your clinical opinion in the progress notes and discharge summary. Terms such as "probable", "suspected", "likely", "questionable", "possible", or "still to be ruled out" are acceptable. IF IN AGREEMENT, YOU MUST DOCUMENT ABOVE DIAGNOSTIC STATEMENT IN DAILY PROGRESS NOTES AND DISCHARGE SUMMARY. This document is not part of the patient's record. Thank You, Isak Verdugo RN [phone]
[2017-08-22 15:50] VITALS: BP 123/78; PULSE 65; TEMP 36.7; O2SAT 96
[2017-08-22 23:43] VITALS: BP 145/91; PULSE 84; TEMP 36.8; O2SAT 92
[2017-08-23] MEDS: HEPARIN SOD 5000 UNIT/0.5 ML CARP SQ SCH (06:00)
[2017-08-23 07:59] LABS: HEMATOCRIT 34.7 % (42-52); HEMOGLOBIN 11.1 g/dL (14.0-18.0); MEAN CORPUSCULAR HEMOGLOBIN 28.5 pg (25-34); MEAN PLATELET VOLUME 10.1 fL (7.4-10.4); PLATELET COUNT 188 K/uL (130-400); RED CELL DISTRIBUTION WIDTH CV 15.3 % (11.5-14.5); RED CELL DISTRIBUTION WIDTH SD 49.5 fL (36.4-46.3); WHITE BLOOD COUNT 8.25 K/uL (4.8-10.8)
--- NOTE | 2017-08-23 08:21 | SURGERY PROGRESS NOTE ---
DATE: 08/23/2017 Ben is up and around. He feels great. He had such a good night in 2 weeks. He showered. He is ready to go home. His last vitals showed a temperature of 36.8, pulse 84, respiratory rate 16, blood pressure 149/91, O2 sats 92 on room air. I&O, may still be slightly positive although he has had 2 bowel movements and there were liquid and no urine was recorded in the last 24 hours. Laboratory jefferson this morning is pending. The abdomen is completely benign. The incisional site, there is no erythema. The jossy are intact aside minimal serosanguineous drainage. He is tolerating a diet. He is anxious to go home. At this point, we will plan to discharge him. Instructions were given to him of wound care, diet, activity and meds and follow up in our office in approximately 1 week.
[2017-08-23 08:25] VITALS: BP 159/93; PULSE 76; TEMP 36.8; O2SAT 92
[2017-08-23] MEDS: SERTRALINE HCL 50 MG TAB PO SCH (08:42)
[2017-08-23] MEDS: METOPROLOL TARTRATE 25 MG TAB PO SCH (08:43)
[2017-08-23] MEDS: ARMOUR THYROID 30 MG TAB PO SCH (08:43)
[2017-08-23] MEDS: PANTOprazole SOD 40 MG TAB PO SCH (08:43)
[2017-08-23] MEDS: ASPIRIN 81 MG CHEW PO SCH (08:43)
[2017-08-23 09:44] VITALS: BP 159/93; PULSE 76; TEMP 36.8; O2SAT 92
--- NOTE | 2017-08-26 15:24 | DISCHARGE SUMMARY ---
PRIMARY DISCHARGE DIAGNOSIS: Protective ileostomy, status post rectosigmoid carcinoma resection. SECONDARY DISCHARGE DIAGNOSES: 1. Hypertension. 2. Coronary artery disease. 3. GERD. 4. Hypothyroidism. 5. Gout. PROCEDURE PERFORMED: Closure of ileostomy. HOSPITAL COURSE: The patient is a 77-year-old male brought in through same day approximately 6 weeks status post resection of rectosigmoid cancer, now taken back to the operating room for closure of ileostomy. The procedure was well tolerated. He was transferred to the surgical floor. SKY CAP was used for initial analgesia. He was able to tolerate clear liquids on day 1, full liquids by day 2. Kelsy drain was removed from the incision on postoperative day #3. He had multiple bowel movements at that point. He was advanced to regular diet. On postoperative day 4, he was tolerating regular diet and oral analgesics. His abdomen was soft. Incision was healing well. There was no erythema. He was stable for discharge. DISCHARGE INSTRUCTIONS: Discharge home. Follow up with Dr. Rutledge in 1 week. DISCHARGE MEDICATIONS: Percocet 1-2 tablets every 4 hours as needed. Resume home medications Aspirin 81 mg daily, colchicine 0.6 mg as needed for gout, Lopressor 25 mg daily, daily multivitamin, Prilosec 20 mg daily, Zoloft 50 mg daily, [place] thyroid 90 mg daily, ketaconazole and Lamisil cream as needed.
== END 2017-08-23 10:30 | disposition home health service (06) | DRG 330 ==
LOC: C.ACU 04:45 → C.MSN 06:20 → ENRESERV 09:36
PROVIDERS: ADMIT Surgery; ATTEND Surgery
PROC: 0DBB0ZZ Excision of Ileum, Open Approach (ICD-10-PCS; principal; 2017-08-19 07:00)
PROC: 0WQFXZ2 Repair Abdominal Wall, Stoma, External Approach (ICD-10-PCS; principal; 2017-08-19 07:00)
DX: Z43.2 Encounter for attention to ileostomy (principal); C18.7 Malignant neoplasm of sigmoid colon

== ENCOUNTER → 2017-08-28 | Outpatient (CLI) | payer MEDICARE ==
[~2017-08-28] MED LIST changes: +OXYC-57 PO
[2017-08-28 17:25] LABS: BASO % 0.5 %; BASO ABS # 0.03 K/uL (0-0.2); EOS % 2.9 %; EOS ABS # 0.19 K/uL (0-0.5); HEMATOCRIT 35.5 % (42-52); HEMOGLOBIN 10.8 g/dL (14.0-18.0); IG# 0.02 K/uL (0.00-0.02); LYMPH ABS # 0.98 K/uL (1.2-3.4); MEAN CELL VOLUME 89.6 fL (80-100); MEAN CORPUSCULAR HEMOGLOBIN 27.3 pg (25-34); MEAN CORPUSCULAR HGB CONC 30.4 g/dl (32-36); MEAN PLATELET VOLUME 10.2 fL (7.4-10.4); MONO % 12.5 %; MONO ABS # 0.82 K/uL (0.11-0.59); NEUT % 68.8 %; PLATELET COUNT 240 K/uL (130-400); RED CELL DISTRIBUTION WIDTH CV 15.2 % (11.5-14.5); RED CELL DISTRIBUTION WIDTH SD 49.8 fL (36.4-46.3); WHITE BLOOD COUNT 6.54 K/uL (4.8-10.8)
[2017-08-28 17:33] LABS: ALBUMIN 2.8 gm/dl (3.4-5.0); ALT/SGPT 84 U/L (12-78); AST/SGOT 19 U/L (15-37); BLOOD UREA NITROGEN 17 mg/dl (7-18); CALCIUM 8.3 mg/dl (8.5-10.1); CARBON DIOXIDE 30 mmol/L (21-32); CREATININE 1.06 mg/dl (0.60-1.40); GLUCOSE 101 mg/dl (70-99); POTASSIUM 4.3 mmol/L (3.5-5.1); SODIUM 139 mmol/L (136-145)
[2017-08-28 17:43] LABS: ALKALINE PHOSPHATASE 88 U/L (45-117); TOTAL PROTEIN 6.2 gm/dl (6.4-8.2)
== END | disposition home or self-care (01) ==
LOC: C.LABPBG 15:05
PROVIDERS: ATTEND Family Medicine
DX: C18.7 Malignant neoplasm of sigmoid colon (principal); M79.89 Other specified soft tissue disorders

== ENCOUNTER → 2017-09-03 | Outpatient (CLI) | payer MEDICARE ==
[2017-09-03 17:58] LABS: BLOOD UREA NITROGEN 17 mg/dl (7-18); CALCIUM 8.4 mg/dl (8.5-10.1); CARBON DIOXIDE 29 mmol/L (21-32); CREATININE 0.97 mg/dl (0.60-1.40); GLUCOSE 112 mg/dl (70-99); SODIUM 136 mmol/L (136-145)
== END | disposition home or self-care (01) ==
LOC: C.LABPBG 12:38
PROVIDERS: ATTEND Family Medicine
DX: M79.89 Other specified soft tissue disorders (principal)

== ENCOUNTER → 2017-10-01 | Outpatient (CLI) | payer MEDICARE ==
[2017-10-01 17:17] LABS: BASO % 0.6 %; BASO ABS # 0.04 K/uL (0-0.2); EOS % 2.9 %; EOS ABS # 0.21 K/uL (0-0.5); HEMATOCRIT 41.6 % (42-52); HEMOGLOBIN 12.8 g/dL (14.0-18.0); IG# 0.01 K/uL (0.00-0.02); LYMPH % 25.6 %; LYMPH ABS # 1.85 K/uL (1.2-3.4); MEAN CELL VOLUME 84.9 fL (80-100); MEAN CORPUSCULAR HEMOGLOBIN 26.1 pg (25-34); MEAN CORPUSCULAR HGB CONC 30.8 g/dl (32-36); MEAN PLATELET VOLUME 9.6 fL (7.4-10.4); MONO % 9.3 %; MONO ABS # 0.67 K/uL (0.11-0.59); NEUT % 61.5 %; NEUT ABS # 4.44 K/uL (1.4-6.5); PLATELET COUNT 261 K/uL (130-400); RED CELL DISTRIBUTION WIDTH CV 16.2 % (11.5-14.5); RED CELL DISTRIBUTION WIDTH SD 49.8 fL (36.4-46.3); WHITE BLOOD COUNT 7.22 K/uL (4.8-10.8)
[2017-10-01 17:36] LABS: BLOOD UREA NITROGEN 18 mg/dl (7-18); CALCIUM 8.8 mg/dl (8.5-10.1); CARBON DIOXIDE 28 mmol/L (21-32); CREATININE 1.01 mg/dl (0.60-1.40); GLUCOSE 97 mg/dl (70-99); POTASSIUM 4.3 mmol/L (3.5-5.1); SODIUM 138 mmol/L (136-145)
[2017-10-02 06:46] LABS: HEMOGLOBIN A1C 5.8 % (4.5-5.6)
== END | disposition home or self-care (01) ==
LOC: C.LABPBG 11:55
PROVIDERS: ATTEND Family Medicine
DX: E03.9 Hypothyroidism, unspecified (principal); D64.9 Anemia, unspecified; R73.03 Prediabetes; R53.83 Other fatigue

== ENCOUNTER → 2017-12-02 | Outpatient (CLI) | payer MEDICARE ==
--- NOTE | 2017-12-02 13:07 | DIAGNOSTIC IMAGING REPORT ---
KUB CLINICAL HISTORY: Nephrolithiasis. FINDINGS: 2 AP supine abdominal radiographs are compared to study dated 02/19/2017 and correlated with abdominal CT dated 06/10/2017. There is a nonobstructed abdominal bowel gas pattern noting moderate colonic fecal retention. An 8 mm calcification is again seen projecting over the right kidney. No calcifications are seen projecting over the left kidney or along the course of the ureters. Numerous pelvic phleboliths are similar to previous. The skeletal structures are osteopenic. Mild lumbosacral spondylosis is observed. IMPRESSION: 1. A nonobstructing right renal calculus is similar to previous. 2. No additional calculi are identified on today's examination. 3. Moderate colonic fecal retention. Electronically signed by: Bryan Blank M.D. 12/02/2017 1:05 PM Dictated Date/Time: 12/02/2017 1:03 PM
== END | disposition home or self-care (01) ==
LOC: C.RAD 12:14
PROVIDERS: ATTEND Urology
DX: N20.0 Calculus of kidney (principal)

== ENCOUNTER → 2018-02-19 | Outpatient (CLI) | payer MEDICARE ==
[2018-02-19 17:23] LABS: URIC ACID 7.7 mg/dl (2.6-7.2)
== END | disposition home or self-care (01) ==
LOC: C.LABPBG 12:11
PROVIDERS: ATTEND Family Medicine
DX: E03.9 Hypothyroidism, unspecified (principal); R73.03 Prediabetes; M10.9 Gout, unspecified

== ENCOUNTER 2018-11-09 10:18 | Inpatient (IN) ==
[2018-11-09 11:05] LABS: Basophils # (auto) 0.02 K/uL (0-0.2); Basophils % (auto) 0.2 %; Eosinophils # (auto) 0.03 K/uL (0-0.5); Eosinophils % (auto) 0.3 %; Hematocrit (blood only) 45.2 % (42-52); Hemoglobin 14.8 g/dL (14.0-18.0); Immature Granulocytes # (auto) 0.05 K/uL (0.00-0.02); Immature Granulocytes % (auto) 0.4 %; Lymphocytes # (auto) 0.76 K/uL (1.2-3.4); Lymphocytes % (auto) 6.7 %; Mean Corpuscular Hgb Conc 32.7 g/dL (32-36); Mean Corpuscular Volume 97.2 fL (80-100); Mean Platelet Volume 10.2 fL (7.4-10.4); Monocytes # (auto) 0.87 K/uL (0.11-0.59); Monocytes % (auto) 7.7 %; Neutrophils # (auto) 9.58 K/uL (1.4-6.5); Neutrophils % (auto) 84.7 %; Platelet Count 157 K/uL (130-400); RDW Coefficient of Variation 15.5 % (11.5-14.5); RDW Standard Deviation 53.5 fL (36.4-46.3); Red Blood Count 4.65 M/uL (4.7-6.1); White Blood Count 11.31 K/uL (4.8-10.8)
[2018-11-09] MEDS: SODIUM CHLORIDE 0.9% 1000ML 1,000 ML IV SCH (11:10)
[2018-11-09 11:13] LABS: Albumin Level 3.5 gm/dl (3.4-5.0); BUN Creatinine Ratio 19.2 (10-20); Calcium 8.7 mg/dl (8.5-10.1); Creatinine Clr Calc Pharmacy 44.8 ml/min; Est GFR (African American) 44.4; Est GFR (Non-African American) 38.3; Magnesium 2.2 mg/dl (1.8-2.4); Potassium 4.4 mmol/L (3.5-5.1)
--- NOTE | 2018-11-09 11:13 | XRay Report ---
XR chest 1V portable CLINICAL HISTORY: syncope dyspnea COMPARISON STUDY: 01/29/2017 FINDINGS: Mild stable cardiomegaly. Small hiatal hernia. Emphysematous change considered baseline. Mild asymmetry of pulmonary vasculature with the right dimi nished compared to the left. This is perhaps slightly increased in prominence compared to the prior e xam. IMPRESSION: 1. Mild decrease in pulmonary vascularity of the right hemithorax compared to the left. 2. Emphysematous change. 3. CT angiography of the chest is suggested as follow-up. The above report was generated using voice recognition software. It may contain grammatical, syntax or spelling errors. Electronically signed by: Maldonado Wilson M.D. 11/09/2018 11:12 AM
[2018-11-09 11:24] LABS: Bilirubin,Total 0.7 mg/dl (0.2-1); Globulin 3.4 gm/dl (2.5-4.0); Total Protein 6.9 gm/dl (6.4-8.2)
[2018-11-09] MEDS ORDERED: OPTIRAY 320 125ml IV PRN (12:33)
--- NOTE | 2018-11-09 12:47 | CT Scan Report ---
CT angio chest PE protocol CT DOSE: 577.22 mGycm HISTORY: Chest pain abnormal chest x-ray TECHNIQUE: Multiaxial CT images of the chest were performed following the intravenous administration of contrast to evaluate the pulmonary arteries. Maximal intensity projection images were also obtaine d. A dose lowering technique was utilized adhering to the principles of ALARA. COMPARISON STUDY: 01/06/2018 FINDINGS: Extensive pulmonary emboli involving the right chest. This includes involvement of the mid and distal aspect of the right main pulmonary artery. Similar diffuse pulmonary emboli the left hemithorax although involvement of the left main pulmonary artery is minimal atelectasis distal aspect. Prominence of pulmonary arterial vasculature suggesting component of pulmonary arterial hypertension. Diffuse stable emphysematous change. No focal infiltrative process. Stable 6 mm nodule right upper l chuy. IMPRESSION: 1. Extensive bilateral pulmonary emboli. 2. Findings of developing pulmonary arterial hypertension. 3. Stable emphysematous change. 4. Fixed hiatal hernia. The above report was generated using voice recognition software. It may contain grammatical, syntax or spelling errors. Electronically signed by: Maldonado Wilson M.D. 11/09/2018 12:46 PM
[2018-11-09 13:13] LABS: INR 1.2 (0.9-1.1); Partial Thromboplastin Ratio 0.9; Partial Thromboplastin Time 24.5 Seconds (21.0-31.0); Prothrombin Time 11.7 Seconds (9.0-12.0)
--- NOTE | 2018-11-09 13:38 | History & Physical Report ---
Date of Service November 09, 2018 Assessment & Plan (1) Bilateral pulmonary embolism: No prior hx of same, noted on CTA Recent R sided LE pain, US pending ECHO pending, ? of pulmonary HTN on CTA Started on heparin in the ED, will continue Start coumadin 10mg x1, dosing tomorrow to be determined based on response Given extensive PE and renal function, pt may not be a candidate for other anticoagulation options Concerning in the setting of hx of colon cancer and possibly untx region CTAP should be done with PO/IV contrast and can hold on this until renal function allows (2) Syncope: Likely related to above CT head pending (3) ARF (acute renal failure): Baseline cr is 0.9 Monitor with IVF Likely dehydration (4) Hypertension: continue home meds (5) Colon cancer: s/p resection Declined chemo Follows with Dr. Salcedo if needed (6) Hypothyroid: continue home meds (7) Anxiety: continue home meds (8) Gout: No current meds Colchicine PRN (9) CAD (coronary artery disease): Hx of DC 1994, stent in 1995 Aspirin 81mg (10) DVT prophylaxis: Heparin for DVT proph History of Present Illness Primary Care Provider: Kylie Díaz, DO 78 y/o M c/o syncope. Pt states that he has been having issues with SOB since about last . This is occurring with exertion and resolves when he rests. He states that this AM he had been sitting on the toilet. He stood up and bent over to take out the scale and he became SOB. He sat back down, but then he passed out. This happened a second time after he became SOB while ambulating. He attempted to sit down to resolve but his next memory was family and EMS around him. No other lightheaded or dizziness noted. "My head feels funny now though." Pt denies fever, chest pain, abd pain, c/d, LE swelling. He states he has been nauseated with dry heaves the last few days. He has been able to eat but his fluid intake has been low. He has R sided sciatica which he has been seeing a chiropractor for over the last month. No other LE pain. Pt has hx of colon cancer. He had a surgical removal several years ago. He follows with Dr. Salcedo. He states Dr. Salcedo wanted to start chemo about 2 years ago for a "black spot" noted on his colon. Pt states he declined tx at that time as Dr. Salcedo could not tell him if that spot was definitively cancer or not. He has had no further tx since then. Allergies Allergy/AdvReac Type Severity Reaction Status Date / Time midazolam Allergy Unknown combative Verified 11/09/18 11:09 tetracycline Allergy Unknown UNKNOWN Verified 11/09/18 11:09 Home Medications Home Medications Medication Instructions Recorded Confirmed Type aspirin 81 mg PO QAM 11/09/18 11/09/18 History colchicine 0.6 mg PO UD PRN 11/09/18 11/09/18 History ibuprofen 200 mg PO Q6H PRN 11/09/18 11/09/18 History ketoconazole 1 applic TOPICAL UD 11/09/18 11/09/18 History lactobacillus combination no.4 3,000 mmu cells PO QAM 11/09/18 11/09/18 History [Probiotic] levothyroxine [Synthroid] 125 mcg PO QAM 11/09/18 11/09/18 History metoprolol tartrate 25 mg PO QAM 11/09/18 11/09/18 History multivitamin 1 tab PO QAM 11/09/18 11/09/18 History omeprazole 20 mg PO QAM 11/09/18 11/09/18 History sertraline 100 mg PO QAM 11/09/18 11/09/18 History terbinafine HCl [Lamisil AT] 1 applic TOPICAL UD 11/09/18 11/09/18 History Past Med/Surg History Medical History Anxiety (Chronic) Colon cancer (Chronic) HTN (hypertension) (Chronic) Heart attack (Resolved) Kidney stone (Resolved) Social History Feels Safe at Home: Yes Smoking Status: Former smoker Hx Alcohol Use: Yes Hx Substance Use: No Review of Systems Pertinent positives and negatives reviewed in HPI--all others negative Physical Exam Vital Signs (Past 24 Hours): Last Vital Signs Temp 36.6 C 11/09/18 10:34 Pulse 88 11/09/18 12:15 Resp 20 11/09/18 12:15 BP 139/97 11/09/18 12:15 Pulse Ox 94 11/09/18 12:15 Constitutional: WD/WN, vitals as above Eyes: normal visual edwards by confrontation and + anicteric sclerae Neck: normal visual inspection and trachea midline Respiratory: normal respiratory effort; no respiratory distress Auscultation: + crackles Cardiovascular: Rate/Rhythm: regular rate and regular rhythm Gastrointestinal (Abdomen): Inspection/Auscultation: abdomen not distended Percussion/Palpation: abdomen soft; abdomen nontender Musculoskeletal: Head/Neck/Chest: normocephalic and head atraumatic negative for edema, redness, swelling and nonTTP, peripheral pulses intact Skin: no rashes, warm and dry Neurologic: awake; not confused Speech / Cognition: normal speech Psychiatric: A+Ox3, euthymic affect Results & Data Diagnostic Findings CXR: neg for acute CTA: Extensive b/l PE, pulmonary artery HTN, hiatal hernia ECG Rhythm: sinus tachycardia Code Status & VTE Plan Code Status DNR/DNI. "God gives you a certain number of days to live when you are in your mother's womb and only he knows how long that is going to be." VTE Prophylaxis Plan VTE Prophylaxis will be ordered: Yes (1) Syncope Syncope type: unspecified Qualified Code(s): R55 - Syncope and collapse
[2018-11-09] MEDS ORDERED: HEPARIN 25000 UNIT/500 ML D5W IV ONE (13:52)
[2018-11-09] MEDS ORDERED: HEPARIN SOD 5,000 UNIT/0.5 ML VIAL ONE (13:52)
--- NOTE | 2018-11-09 14:24 | CT Scan Report ---
CT head/brain wo con CLINICAL HISTORY: 78 years-old Male with syncope, B PE, needs anticoag, head bleed?. Acute syncope w ith possible head trauma TECHNIQUE: Multiple axial CT images of the head were obtained without contrast. A dose lowering tech nique was utilized adhering to the principles of ALARA. CT DOSE: 537.48 mGy.cm COMPARISON: CTA chest of same day FINDINGS: No acute intracranial hemorrhage, midline shift, intracranial mass, hydrocephalus, territorial ischem ia or abnormal extra-axial collection. Contrast noted within the cerebral venous sinuses and arterial structures secondary to CTA of the chest conducted earlier today. Mild age-related involutional hall ges. Mild degree of ill-defined white matter hypodensities suggest chronic microvascular ischemic karri nges. Cerebral vascular calcifications noted. The calvarium is intact. The paranasal sinuses, mastoid air cells, and middle ear cavities are clear . IMPRESSION: No acute intracranial abnormality or calvarial fracture. The above report was generated using voice recognition software. It may contain grammatical, syntax o r spelling errors. Electronically signed by: Sherman Royal M.D. 11/09/2018 2:22 PM
[2018-11-09 15:15] LABS: Appearance Urine Clear (Clear); Bacteria Urine Automated Negative (Negative); Bilirubin Urine Negative (Negative); Blood Urine Negative (Negative); Color Urine Yellow; Epithelial Cell Urine Auto 20-30 /lpf (0-5); Glucose Urine UA Negative (Negative); Ketones Urine 1+ (Negative); Leukocyte Esterase Urine Negative (Negative); Nitrite Urine Negative (Negative); Protein Urine Trace (Negative); RBC Urine Automated 0-4 /hpf (0-4); Specific Gravity Urine > 1.045 (1.000-1.030); Urobilinogen Urine Negative (Negative)
[2018-11-09] MEDS ORDERED: ONDANSETRON INJ 2 MG/ML 2 ML VIAL IV PRN (15:36)
[2018-11-09] MEDS ORDERED: COLCHICINE 0.6 MG TAB PO PRN (15:36)
[2018-11-09] MEDS ORDERED: TERBINAFINE CR 30 GM TUBE EXT PRN (15:36)
[2018-11-09] MEDS ORDERED: MAGNESIUM HYDROXIDE SUSP 30 ML UDC PO PRN (15:36)
[2018-11-09] MEDS ORDERED: WARFARIN SOD 10 MG TAB PO ONE (15:36)
[2018-11-09] MEDS ORDERED: IBUPROFEN 200 MG TAB PO PRN (15:36)
[2018-11-09] MEDS ORDERED: KETOCONAZOLE 2% CR 15 GM TUBE EXT PRN (15:36)
[2018-11-09] MEDS ORDERED: Heparin IV Standard *NO* Bolus IV STA (16:12)
--- NOTE | 2018-11-09 16:27 | Emergency Department Note ---
Entered by Paula Sotelo acting as a scribe for Pati Stockton MD History of Present Illness General Chief complaint: Syncope Source: patient and old records reviewed History of Present Illness Provider complaint: 2 syncopal episodes Onset (ago): hour(s) (today) Location: left and right Quality: + other (syncope) Associated symptoms: + denies other symptoms (denies feeling heart flutter) and + shortness of breath; no chest pain The patient is a 78 year old male who presents to the Emergency Room with complaints of 2 syncopal episodes today. The patient states that he does not remember what happened. He states that he went on a scale to weight himself and next thing he knew he was laying on the floor. The patient states that he went up to see he was in the driveway, turned away, and passed out again. The patient denies feeling his heart flutter prior to this. The patient reports hitting his back but not his head. He reports that he has been sick for the last week and has been short of breath. He denies having chest pain with this. The patient reports a history of a heart attack 30 years ago. The patient states that he has been weighing himself as he has been gaining weight recently. Review of EMR shows that the patient a history of hypothyroidism, anxiety, and a kidney stone. Home Medications Home Medications Medication Instructions Recorded Confirmed Type aspirin 81 mg PO QAM 11/09/18 11/09/18 History colchicine 0.6 mg PO UD PRN 11/09/18 11/09/18 History ibuprofen 200 mg PO Q6H PRN 11/09/18 11/09/18 History ketoconazole 1 applic TOPICAL UD 11/09/18 11/09/18 History lactobacillus combination no.4 3,000 mmu cells PO QAM 11/09/18 11/09/18 History [Probiotic] levothyroxine [Synthroid] 125 mcg PO QAM 11/09/18 11/09/18 History metoprolol tartrate 25 mg PO QAM 11/09/18 11/09/18 History multivitamin 1 tab PO QAM 11/09/18 11/09/18 History omeprazole 20 mg PO QAM 11/09/18 11/09/18 History sertraline 100 mg PO QAM 11/09/18 11/09/18 History terbinafine HCl [Lamisil AT] 1 applic TOPICAL UD 11/09/18 11/09/18 History Allergies Allergy/AdvReac Type Severity Reaction Status Date / Time midazolam Allergy Unknown combative Verified 11/09/18 11:09 tetracycline Allergy Unknown UNKNOWN Verified 11/09/18 11:09 Past Med/Surg History Medical History Anxiety (Chronic) Colon cancer (Chronic) HTN (hypertension) (Chronic) Heart attack (Resolved) Kidney stone (Resolved) Social History Communication Ability: Effective Beliefs That Will Affect Care: None marital status: Current Living Situation: Spouse Other Information That Helps Us Care for You: No Feels Safe at Home: Yes Safety Concerns: Feels Safe At This Time Smoking Status: Former smoker Hx Alcohol Use: No Hx Substance Use: No Review of Systems See HPI for pertinent positives & negatives. and A total of 10 systems reviewed and were otherwise negative Physical Exam Vital Signs Vital Signs - 24 hr 11/11/18 03:30 11/11/18 03:34 11/11/18 06:55 Temperature 36.7 C Temperature Source Oral Pulse Rate [Finger] 80 78 89 Respiratory Rate 20 16 18 Respiratory Effort / Characteristics Non-Labored Spontaneous Non-Labored Spontaneous Respiratory Depth Respiratory Pattern Blood Pressure [Left Arm] Blood Pressure [Right Arm] 145/90 H Blood Pressure Mean [Left Arm] Blood Pressure Mean [Right Arm] 108 Blood Pressure Position [Left Arm] Pulse Oximetry 93 96 97 Pulse Oximetry [Right Index Finger] Oxygen Delivery Method Nasal Cannula Nasal Cannula Oxygen Delivery Method [Right Index Finger] Oxygen Flow Rate 3 3 Oxygen Flow Rate [Right Index Finger] 11/11/18 06:57 11/11/18 07:58 11/11/18 08:00 Temperature 36.5 C 36.5 C Temperature Source Oral Oral Pulse Rate [Finger] 86 92 H Respiratory Rate 18 18 Respiratory Effort / Characteristics Non-Labored Non-Labored Spontaneous SOB on Exertion Respiratory Depth Normal Normal Respiratory Pattern Regular Regular Blood Pressure [Left Arm] 165/97 H 162/91 H Blood Pressure [Right Arm] Blood Pressure Mean [Left Arm] 119 114 Blood Pressure Mean [Right Arm] Blood Pressure Position [Left Arm] Lying Pulse Oximetry 97 98 Pulse Oximetry [Right Index Finger] Oxygen Delivery Method Nasal Cannula Nasal Cannula Oxygen Delivery Method [Right Index Finger] Oxygen Flow Rate 3 3 3 Oxygen Flow Rate [Right Index Finger] 11/11/18 11:00 11/11/18 11:15 11/11/18 15:14 Temperature 36.5 C Temperature Source Oral Pulse Rate [Finger] 89 96 H 89 Respiratory Rate 18 18 18 Respiratory Effort / Characteristics Non-Labored Spontaneous Non-Labored Respiratory Depth Normal Respiratory Pattern Regular Blood Pressure [Left Arm] 143/85 H 129/83 Blood Pressure [Right Arm] Blood Pressure Mean [Left Arm] 104 98 Blood Pressure Mean [Right Arm] Blood Pressure Position [Left Arm] Lying Lying Pulse Oximetry 96 98 97 Pulse Oximetry [Right Index Finger] Oxygen Delivery Method Nasal Cannula Nasal Cannula Nasal Cannula Oxygen Delivery Method [Right Index Finger] Oxygen Flow Rate 3 4 3 Oxygen Flow Rate [Right Index Finger] 11/11/18 15:25 11/11/18 19:10 11/11/18 19:14 Temperature 36.5 C Temperature Source Oral Pulse Rate [Finger] 92 H 92 H 100 H Respiratory Rate 14 18 18 Respiratory Effort / Characteristics Non-Labored Spontaneous Non-Labored Spontaneous Respiratory Depth Respiratory Pattern Blood Pressure [Left Arm] 142/93 H Blood Pressure [Right Arm] Blood Pressure Mean [Left Arm] 109 Blood Pressure Mean [Right Arm] Blood Pressure Position [Left Arm] Lying Pulse Oximetry 92 94 95 Pulse Oximetry [Right Index Finger] Oxygen Delivery Method Nasal Cannula Nasal Cannula Nasal Cannula Oxygen Delivery Method [Right Index Finger] Oxygen Flow Rate 3 3 3 Oxygen Flow Rate [Right Index Finger] 11/11/18 20:42 11/11/18 22:00 11/11/18 23:18 Temperature Temperature Source Pulse Rate [Finger] 101 H Respiratory Rate 18 Respiratory Effort / Characteristics Non-Labored Spontaneous Non-Labored Spontaneous Respiratory Depth Normal Respiratory Pattern Regular Blood Pressure [Left Arm] Blood Pressure [Right Arm] Blood Pressure Mean [Left Arm] Blood Pressure Mean [Right Arm] Blood Pressure Position [Left Arm] Pulse Oximetry 97 Pulse Oximetry [Right Index Finger] 97 Oxygen Delivery Method Nasal Cannula Nasal Cannula Oxygen Delivery Method [Right Index Finger] Oxymask Oxygen Flow Rate 3 3 Oxygen Flow Rate [Right Index Finger] 3 11/11/18 23:20 Temperature 36.9 C Temperature Source Oral Pulse Rate [Finger] 104 H Respiratory Rate 18 Respiratory Effort / Characteristics Respiratory Depth Respiratory Pattern Blood Pressure [Left Arm] Blood Pressure [Right Arm] 154/89 H Blood Pressure Mean [Left Arm] Blood Pressure Mean [Right Arm] 110 Blood Pressure Position [Left Arm] Pulse Oximetry 94 Pulse Oximetry [Right Index Finger] Oxygen Delivery Method Oxygen Delivery Method [Right Index Finger] Oxygen Flow Rate Oxygen Flow Rate [Right Index Finger] Vital signs reviewed. General: Chronically ill-appearing male, in no significant distress. On an Oxy- mask. HEENT: No scleral icterus, PERRLA, neck supple. Atraumatic. Cardiovascular: Slightly tachycardic rate and regular rhythm, no extra sounds. Pulmonary: Clear to auscultation bilaterally, normal work of breathing. Abdomen: Soft, nontender, nondistended, positive bowel sounds. Musculoskeletal: Atraumatic, no peripheral edema. Neurologic: Patient awake alert and oriented x 3, full strength in all 4 extremities. Cranial nerves 2 through 12 grossly intact. Skin: Warm, dry, no rash. Abrasions to the elbows bilaterally. Course 1057: The patient was evaluated in room B5, and a complete history and physical examination were performed. 1245: I spoke to Dr. Guaman who stated that the patient has extensive bilateral PEs. 1310: I discussed the patient's case with Dr. Joaquin Leslie who will evaluate the patient for further management. 1316: I updated the patient who verbalized agreement and understanding of the treatment plan. Consultations Consultation #1: Dr. Joaquin Leslie Time: 13:10 Administered Medications Acetaminophen (Tylenol) 650 mg PO Q4H PRN PRN Reason: Pain or Fever Stop: 12/09/18 15:35 Last Admin: 11/10/18 21:59 Dose: 650 mg Documented by: [id number] Admin: 11/10/18 01:41 Dose: 650 mg Documented by: [id number] Albuterol (Duoneb) 3 ml NEB Q4R LEON Stop: 12/10/18 15:59 Last Admin: 11/11/18 23:18 Dose: 3 ml Documented by: [id number] Admin: 11/11/18 19:13 Dose: 3 ml Documented by: [id number] Admin: 11/11/18 15:24 Dose: 3 ml Documented by: [id number] Admin: 11/11/18 10:59 Dose: 3 ml Documented by: [id number] Admin: 11/11/18 06:55 Dose: 3 ml Documented by: [id number] Admin: 11/11/18 03:33 Dose: 3 ml Documented by: [id number] Admin: 11/10/18 23:38 Dose: 3 ml Documented by: [id number] Admin: 11/10/18 19:49 Dose: 3 ml Documented by: [id number] Admin: 11/10/18 15:06 Dose: 3 ml Documented by: [id number] Heparin Sodium/Dextrose (Heparin Sodium/Dextrose) 25,000 units in 500 mls @ 25 mls/hr IV .Q20H LEON; Protocol Stop: 12/09/18 16:44 Last Admin: 11/11/18 22:25 Dose: 1,250 units/hr, 25 mls/hr Documented by: [id number] Cosigned by: [id number] Titration: 11/11/18 21:46 Dose: 1,250 units/hr, 25 mls/hr Documented by: [id number] Cosigned by: [id number] Titration: 11/11/18 06:55 Dose: 1,250 units/hr, 25 mls/hr Documented by: [id number] Cosigned by: [id number] Titration: 11/11/18 06:40 Dose: 1,250 units/hr, 25 mls/hr Documented by: [id number] Cosigned by: [id number] Admin: 11/11/18 02:17 Dose: 1,400 units/hr, 28 mls/hr Documented by: [id number] Cosigned by: [id number] Titration: 11/11/18 02:17 Dose: 1,400 units/hr, 28 mls/hr Documented by: [id number] Cosigned by: [id number] Titration: 11/10/18 18:58 Dose: 1,400 units/hr, 28 mls/hr Documented by: [id number] Cosigned by: [id number] Admin: 11/10/18 10:47 Dose: 1,400 units/hr, 28 mls/hr Documented by: [id number] Cosigned by: [id number] Titration: 11/10/18 10:25 Dose: 1,400 units/hr, 28 mls/hr Documented by: [id number] Cosigned by: [id number] Titration: 11/10/18 04:16 Dose: 1,400 units/hr, 28 mls/hr Documented by: [id number] Cosigned by: [id number] Titration: 11/09/18 23:15 Dose: 1,400 units/hr, 28 mls/hr Documented by: [id number] Cosigned by: [id number] Titration: 11/09/18 21:22 Dose: 1,400 units/hr, 28 mls/hr Documented by: [id number] Cosigned by: [id number] Admin: 11/09/18 17:01 Dose: 1,550 units/hr, 31 mls/hr Documented by: [id number] Cosigned by: [id number] Ibuprofen (Advil) 200 mg PO Q6H PRN PRN Reason: Pain Stop: 12/09/18 15:35 Last Admin: 11/10/18 08:16 Dose: 200 mg Documented by: [id number] Ioversol (Optiray 320 125ml) 119 ml IV ONCE PRN PRN Reason: Interaction Checking Stop: 11/13/18 12:32 Last Admin: 11/09/18 12:33 Dose: 119 ml Documented by: [id number] Ioversol (Optiray 320 100ml) 91 ml IV ONCE PRN PRN Reason: Interaction Checking Stop: 11/15/18 22:11 Last Admin: 11/11/18 22:13 Dose: 91 ml Documented by: [id number] Lactobacillus Acidophilus (Floranex) 4 tab PO [facility] Stop: 12/10/18 08:59 Last Admin: 11/11/18 08:11 Dose: 4 tab Documented by: [id number] Admin: 11/10/18 08:16 Dose: 4 tab Documented by: [id number] Levothyroxine Sodium (Synthroid) 125 mcg PO [facility]BB [facility] Stop: 12/10/18 06:29 Last Admin: 11/11/18 06:18 Dose: 125 mcg Documented by: [id number] Admin: 11/10/18 05:25 Dose: 125 mcg Documented by: [id number] Magnesium Hydroxide (Milk Of Magnesia) 30 ml PO Q12H PRN PRN Reason: Constipation Stop: 12/09/18 15:35 Last Admin: 11/11/18 08:10 Dose: 30 ml Documented by: [id number] [facility]) [facility] [place] Protocol Stop: 12/10/18 08:59 Last Admin: 11/11/18 08:10 Dose: 25 mg Documented by: [id number] Admin: 11/10/18 08:16 Dose: 25 mg Documented by: [id number] Multivitamins (Multivitamin Tab) 1 tab PO [facility] Stop: 12/10/18 08:59 Last Admin: 11/11/18 08:10 Dose: 1 tab Documented by: [id number] Admin: 11/10/18 08:17 Dose: 1 tab Documented by: [id number] Pantoprazole Sodium (Protonix) 40 mg PO [facility] Stop: 12/10/18 08:59 Last Admin: 11/11/18 08:10 Dose: 40 mg Documented by: [id number] Admin: 11/10/18 08:17 Dose: 40 mg Documented by: [id number] Sertraline HCl (Zoloft) 100 mg PO [facility] Stop: 12/10/18 08:59 Last Admin: 11/11/18 08:10 Dose: 100 mg Documented by: [id number] Admin: 11/10/18 08:16 Dose: 100 mg Documented by: [id number] Warfarin Sodium (Coumadin) 5 mg PO DAILY@1600 [facility] Stop: 12/10/18 15:59 Last Admin: 11/11/18 17:04 Dose: 5 mg Documented by: [id number] Admin: 11/10/18 16:42 Dose: 5 mg Documented by: [id number] Discontinued Medications Heparin Sodium (Porcine) (Heparin Sodium (Porcine)) Confirm Administered Dose 10,000 units .ROUTE .STK-MED ONE Stop: 11/09/18 13:53 Last Admin: 11/09/18 13:55 Dose: 7,000 units Documented by: [id number] Cosigned by: [id number] Heparin Sodium/Dextrose () 1 ea IV NOW STA; Protocol Stop: 11/09/18 12:50 Last Admin: 11/09/18 13:58 Dose: Not Given Documented by: [id number] Heparin Sodium/Dextrose (Heparin Sodium/Dextrose) Confirm Administered Dose 25,000 units IV .STK-MED ONE Stop: 11/09/18 13:53 Last Admin: 11/09/18 13:56 Dose: 1,550 units Documented by: [id number] Cosigned by: [id number] Sodium Chloride (Nss 1000ml) 1,000 mls @ 125 mls/hr IV .Q8H [facility] Stop: 12/09/18 10:59 Last Admin: 11/10/18 02:46 Dose: Not Given Documented by: [id number] Infusion: 11/09/18 18:10 Dose: 0 mls/hr Documented by: [id number] Infusion: 11/09/18 17:00 Dose: 125 mls/hr Documented by: [id number] Admin: 11/09/18 11:10 Dose: 125 mls/hr Documented by: [id number] Sodium Chloride (1/2 Nss) 1,000 mls @ 80 mls/hr IV .[id number] LEON Stop: 12/09/18 15:35 Last Infusion: 11/10/18 19:41 Dose: 0 mls/hr Documented by: [id number] Infusion: 11/10/18 15:19 Dose: 0 mls/hr Documented by: [id number] Infusion: 11/10/18 15:19 Dose: 0 mls/hr Documented by: [id number] Admin: 11/10/18 05:22 Dose: 80 mls/hr Documented by: [id number] Infusion: 11/10/18 05:13 Dose: 80 mls/hr Documented by: [id number] Admin: 11/09/18 16:43 Dose: 80 mls/hr Documented by: [id number] Menthol (Nice) Confirm Administered Dose 24 charly BUCCAL .STK-MED ONE Stop: 11/11/18 20:21 Last Admin: 11/11/18 20:22 Dose: 24 charly Documented by: [id number] Metoprolol Tartrate (Lopressor) 25 mg PO NOW STA Stop: 11/10/18 03:02 Last Admin: 11/10/18 03:11 Dose: 25 mg Documented by: [id number] Perflutren Lipid Microsphere (Definity) 2 ml IV ONCE ONE Stop: 11/10/18 07:00 Last Admin: 11/10/18 06:59 Dose: 2 ml Documented by: [id number] Warfarin Sodium (Coumadin) 10 mg PO NOW ONE Stop: 11/09/18 15:37 Last Admin: 11/09/18 16:43 Dose: 10 mg Documented by: [id number] Medical Decision Making Differential Diagnosis Differential diagnosis: Etiologies such as vasovagal event, infection, anemia, hypoglycemia, hypovolemia, electrolyte abnormalities, dysrhythmias, cardiac ischemia, cardiac tamponade, valvular heart disease, structural heart disease, seizure, vascular stenosis/dissection, pulmonary embolism, intracerebral event, toxicological process, neurologic event, as well as others were entertained. Medical Records Attestation: I reviewed the patient's medical records. Home Medications Current Medication List: was personally reviewed by me Laboratory Data Attestation: I reviewed the patient's lab results. Result diagrams: 11/11/18 05:10 11/10/18 03:15 Lab Results 11/09/18 11/09/18 11/09/18 Range/Units 10:39 10:39 10:39 WBC 11.31 H (4.8-10.8) K/uL RBC 4.65 L (4.7-6.1) M/uL Hgb 14.8 (14.0-18.0) g/dL Hct 45.2 (42-52) % MCV 97.2 (80-100) fL MCH 31.8 (25-34) pg MCHC 32.7 (32-36) g/dL RDW Std Deviation 53.5 H (36.4-46.3) fL RDW Coeff of Blair 15.5 H (11.5-14.5) % Plt Count 157 (130-400) K/uL MPV 10.2 (7.4-10.4) fL Immature Gran % (Auto) 0.4 % Neut % (Auto) 84.7 % Lymph % (Auto) 6.7 % [place] % (Auto) 7.7 % Eos % (Auto) 0.3 % Baso % (Auto) 0.2 % Immature Gran # (Auto) 0.05 H (0.00-0.02) K/uL Neut # (Auto) 9.58 H (1.4-6.5) K/uL Lymph # (Auto) 0.76 L (1.2-3.4) K/uL [place] # (Auto) 0.87 H (0.11-0.59) K/uL Eos # (Auto) 0.03 (0-0.5) K/uL Baso # (Auto) 0.02 (0-0.2) K/uL PT 11.7 (9.0-12.0) Seconds INR 1.2 H (0.9-1.1) APTT 24.5 (21.0-31.0) Seconds PTT Ratio 0.9 Sodium 141 (136-145) mmol/L Potassium 4.4 (3.5-5.1) mmol/L Chloride 107 (98-107) mmol/L Carbon Dioxide 26 (21-32) mmol/L Anion Gap 8.0 (3-11) BUN 33 H (7-18) mg/dl Creatinine 1.70 H (0.6-1.4) mg/dl Est Cr Clr Drug Dosing 44.8 ml/min Est GFR ( Amer) 44.4 Est GFR (Non-Af Amer) 38.3 BUN/Creatinine Ratio 19.2 (10-20) Glucose 107 H (70-99) mg/dl POC Glucose (70-99) Calcium 8.7 (8.5-10.1) mg/dl Magnesium 2.2 (1.8-2.4) mg/dl Total Bilirubin 0.7 (0.2-1) mg/dl AST 37 (15-37) U/L ALT 61 (12-78) U/L Alkaline Phosphatase 84 (45-117) U/L Troponin I (0-0.045) ng/ml Total Protein 6.9 (6.4-8.2) gm/dl Albumin 3.5 (3.4-5.0) gm/dl Globulin 3.4 (2.5-4.0) gm/dl Albumin/Globulin Ratio 1.0 (0.9-2) TSH 0.380 (0.300-4.500) uIu/ml Urine Color Urine Appearance (Clear) Urine pH (4.5-7.5) Ur Specific [place] (1.000-1.030) Urine Protein (Negative) Urine Glucose (UA) (Negative) Urine Ketones (Negative) Urine Blood (Negative) Urine Nitrite (Negative) Urine Bilirubin (Negative) Urine Urobilinogen (Negative) Ur Leukocyte Esterase (Negative) Urine WBC (Auto) (0-5) /hpf Urine RBC (Auto) (0-4) /hpf U Hyaline Cast (Auto) (0-5) /lpf U Epithel Cells (Auto) (0-5) /lpf Urine Bacteria (Auto) (Negative) 11/09/18 11/09/18 11/09/18 Range/Units 14:45 16:51 16:51 WBC (4.8-10.8) K/uL RBC (4.7-6.1) M/uL Hgb (14.0-18.0) g/dL Hct (42-52) % MCV (80-100) fL MCH (25-34) pg MCHC (32-36) g/dL RDW Std Deviation (36.4-46.3) fL RDW Coeff of [place] (11.5-14.5) % Plt Count (130-400) K/uL MPV (7.4-10.4) fL Immature Gran % (Auto) % Neut % (Auto) % Lymph % (Auto) % [place] % (Auto) % Eos % (Auto) % Baso % (Auto) % Immature Gran # (Auto) (0.00-0.02) K/uL Neut # (Auto) (1.4-6.5) K/uL Lymph # (Auto) (1.2-3.4) K/uL [place] # (Auto) (0.11-0.59) K/uL Eos # (Auto) (0-0.5) K/uL Baso # (Auto) (0-0.2) K/uL PT 12.4 H (9.0-12.0) Seconds INR 1.2 H (0.9-1.1) APTT (21.0-31.0) Seconds PTT Ratio Sodium (136-145) mmol/L Potassium (3.5-5.1) mmol/L Chloride (98-107) mmol/L Carbon Dioxide (21-32) mmol/L Anion Gap (3-11) BUN (7-18) mg/dl Creatinine (0.6-1.4) mg/dl Est Cr Clr Drug Dosing ml/min Est GFR ( Amer) Est GFR (Non-Af Amer) BUN/Creatinine Ratio (10-20) Glucose (70-99) mg/dl POC Glucose (70-99) Calcium (8.5-10.1) mg/dl Magnesium (1.8-2.4) mg/dl Total Bilirubin (0.2-1) mg/dl AST (15-37) U/L ALT (12-78) U/L Alkaline Phosphatase (45-117) U/L Troponin I 0.195 H* (0-0.045) ng/ml Total Protein (6.4-8.2) gm/dl Albumin (3.4-5.0) gm/dl Globulin (2.5-4.0) gm/dl Albumin/Globulin Ratio (0.9-2) TSH (0.300-4.500) uIu/ml Urine Color Yellow Urine Appearance Clear (Clear) Urine pH 5.0 (4.5-7.5) Ur Specific [place] > 1.045 H (1.000-1.030) Urine Protein Trace H (Negative) Urine Glucose (UA) Negative (Negative) Urine Ketones 1+ H (Negative) Urine Blood Negative (Negative) Urine Nitrite Negative (Negative) Urine Bilirubin Negative (Negative) Urine Urobilinogen Negative (Negative) Ur Leukocyte Esterase Negative (Negative) Urine WBC (Auto) 1-5 (0-5) /hpf Urine RBC (Auto) 0-4 (0-4) /hpf U Hyaline Cast (Auto) 5-10 H (0-5) /lpf U Epithel Cells (Auto) 20-30 H (0-5) /lpf Urine Bacteria (Auto) Negative (Negative) 11/09/18 11/09/18 11/10/18 Range/Units 20:01 21:27 03:15 WBC (4.8-10.8) K/uL RBC (4.7-6.1) M/uL Hgb (14.0-18.0) g/dL Hct (42-52) % MCV (80-100) fL MCH (25-34) pg MCHC (32-36) g/dL RDW Std Deviation (36.4-46.3) fL RDW Coeff of [place] (11.5-14.5) % Plt Count (130-400) K/uL MPV (7.4-10.4) fL Immature Gran % (Auto) % Neut % (Auto) % Lymph % (Auto) % [place] % (Auto) % Eos % (Auto) % Baso % (Auto) % Immature Gran # (Auto) (0.00-0.02) K/uL Neut # (Auto) (1.4-6.5) K/uL Lymph # (Auto) (1.2-3.4) K/uL [place] # (Auto) (0.11-0.59) K/uL Eos # (Auto) (0-0.5) K/uL Baso # (Auto) (0-0.2) K/uL PT (9.0-12.0) Seconds INR (0.9-1.1) APTT 81.9 H* (21.0-31.0) Seconds PTT Ratio 3.0 Sodium 140 (136-145) mmol/L Potassium 4.3 (3.5-5.1) mmol/L Chloride 106 (98-107) mmol/L Carbon Dioxide 28 (21-32) mmol/L Anion Gap 6.0 (3-11) BUN 29 H (7-18) mg/dl Creatinine 1.35 D (0.6-1.4) mg/dl Est Cr Clr Drug Dosing 56.4 ml/min Est GFR ( Amer) 58.7 Est GFR (Non-Af Amer) 50.6 BUN/Creatinine Ratio 21.1 H (10-20) Glucose 102 H (70-99) mg/dl POC Glucose (70-99) Calcium 8.0 L (8.5-10.1) mg/dl Magnesium (1.8-2.4) mg/dl Total Bilirubin (0.2-1) mg/dl AST (15-37) U/L ALT (12-78) U/L Alkaline Phosphatase (45-117) U/L Troponin I 0.199 H* (0-0.045) ng/ml Total Protein (6.4-8.2) gm/dl Albumin (3.4-5.0) gm/dl Globulin (2.5-4.0) gm/dl Albumin/Globulin Ratio (0.9-2) TSH (0.300-4.500) uIu/ml Urine Color Urine Appearance (Clear) Urine pH (4.5-7.5) Ur Specific [place] (1.000-1.030) Urine Protein (Negative) Urine Glucose (UA) (Negative) Urine Ketones (Negative) Urine Blood (Negative) Urine Nitrite (Negative) Urine Bilirubin (Negative) Urine Urobilinogen (Negative) Ur Leukocyte Esterase (Negative) Urine WBC (Auto) (0-5) /hpf Urine RBC (Auto) (0-4) /hpf U Hyaline Cast (Auto) (0-5) /lpf U Epithel Cells (Auto) (0-5) /lpf Urine Bacteria (Auto) (Negative) 11/10/18 11/10/18 11/11/18 Range/Units 03:15 12:27 05:10 WBC (4.8-10.8) K/uL RBC (4.7-6.1) M/uL Hgb (14.0-18.0) g/dL Hct (42-52) % MCV (80-100) fL MCH (25-34) pg MCHC (32-36) g/dL RDW Std Deviation (36.4-46.3) fL RDW Coeff of [place] (11.5-14.5) % Plt Count (130-400) K/uL MPV (7.4-10.4) fL Immature Gran % (Auto) % Neut % (Auto) % Lymph % (Auto) % [place] % (Auto) % Eos % (Auto) % Baso % (Auto) % Immature Gran # (Auto) (0.00-0.02) K/uL Neut # (Auto) (1.4-6.5) K/uL Lymph # (Auto) (1.2-3.4) K/uL [place] # (Auto) (0.11-0.59) K/uL Eos # (Auto) (0-0.5) K/uL Baso # (Auto) (0-0.2) K/uL PT 12.1 H 16.8 H (9.0-12.0) Seconds INR 1.2 H 1.7 H (0.9-1.1) APTT 63.1 H* 79.3 H* (21.0-31.0) Seconds PTT Ratio 2.3 2.9 Sodium (136-145) mmol/L Potassium (3.5-5.1) mmol/L Chloride (98-107) mmol/L Carbon Dioxide (21-32) mmol/L Anion Gap (3-11) BUN (7-18) mg/dl Creatinine (0.6-1.4) mg/dl Est Cr Clr Drug Dosing ml/min Est GFR ( Amer) Est GFR (Non-Af Amer) BUN/Creatinine Ratio (10-20) Glucose (70-99) mg/dl POC Glucose 139 H (70-99) Calcium (8.5-10.1) mg/dl Magnesium (1.8-2.4) mg/dl Total Bilirubin (0.2-1) mg/dl AST (15-37) U/L ALT (12-78) U/L Alkaline Phosphatase (45-117) U/L Troponin I (0-0.045) ng/ml Total Protein (6.4-8.2) gm/dl Albumin (3.4-5.0) gm/dl Globulin (2.5-4.0) gm/dl Albumin/Globulin Ratio (0.9-2) TSH (0.300-4.500) uIu/ml Urine Color Urine Appearance (Clear) Urine pH (4.5-7.5) Ur Specific [place] (1.000-1.030) Urine Protein (Negative) Urine Glucose (UA) (Negative) Urine Ketones (Negative) Urine Blood (Negative) Urine Nitrite (Negative) Urine Bilirubin (Negative) Urine Urobilinogen (Negative) Ur Leukocyte Esterase (Negative) Urine WBC (Auto) (0-5) /hpf Urine RBC (Auto) (0-4) /hpf U Hyaline Cast (Auto) (0-5) /lpf U Epithel Cells (Auto) (0-5) /lpf Urine Bacteria (Auto) (Negative) 11/11/18 11/11/18 Range/Units 05:10 12:37 WBC 7.46 (4.8-10.8) K/uL RBC 4.20 L (4.7-6.1) M/uL Hgb 13.2 L (14.0-18.0) g/dL Hct 41.3 L (42-52) % MCV 98.3 (80-100) fL MCH 31.4 (25-34) pg MCHC 32.0 (32-36) g/dL RDW Std Deviation 55.0 H (36.4-46.3) fL RDW Coeff of [place] 15.3 H (11.5-14.5) % Plt Count 120 L (130-400) K/uL MPV 10.3 (7.4-10.4) fL Immature Gran % (Auto) % Neut % (Auto) % Lymph % (Auto) % [place] % (Auto) % Eos % (Auto) % Baso % (Auto) % Immature Gran # (Auto) (0.00-0.02) K/uL Neut # (Auto) (1.4-6.5) K/uL Lymph # (Auto) (1.2-3.4) K/uL [place] # (Auto) (0.11-0.59) K/uL Eos # (Auto) (0-0.5) K/uL Baso # (Auto) (0-0.2) K/uL PT (9.0-12.0) Seconds INR (0.9-1.1) APTT 62.6 H* (21.0-31.0) Seconds PTT Ratio 2.3 Sodium (136-145) mmol/L Potassium (3.5-5.1) mmol/L Chloride (98-107) mmol/L Carbon Dioxide (21-32) mmol/L Anion Gap (3-11) BUN (7-18) mg/dl Creatinine (0.6-1.4) mg/dl Est Cr Clr Drug Dosing ml/min Est GFR ( Amer) Est GFR (Non-Af Amer) BUN/Creatinine Ratio (10-20) Glucose (70-99) mg/dl POC Glucose (70-99) Calcium (8.5-10.1) mg/dl Magnesium (1.8-2.4) mg/dl Total Bilirubin (0.2-1) mg/dl AST (15-37) U/L ALT (12-78) U/L Alkaline Phosphatase (45-117) U/L Troponin I (0-0.045) ng/ml Total Protein (6.4-8.2) gm/dl Albumin (3.4-5.0) gm/dl Globulin (2.5-4.0) gm/dl Albumin/Globulin Ratio (0.9-2) TSH (0.300-4.500) uIu/ml Urine Color Urine Appearance (Clear) Urine pH (4.5-7.5) Ur Specific [place] (1.000-1.030) Urine Protein (Negative) Urine Glucose (UA) (Negative) Urine Ketones (Negative) Urine Blood (Negative) Urine Nitrite (Negative) Urine Bilirubin (Negative) Urine Urobilinogen (Negative) Ur Leukocyte Esterase (Negative) Urine WBC (Auto) (0-5) /hpf Urine RBC (Auto) (0-4) /hpf U Hyaline Cast (Auto) (0-5) /lpf U Epithel Cells (Auto) (0-5) /lpf Urine Bacteria (Auto) (Negative) Imaging Data Radiologist's Impression: Radiology results as stated below per my review and the radiologist's interpretation: XR chest 1V portable CLINICAL HISTORY: syncope dyspnea COMPARISON STUDY: 01/29/2017 FINDINGS: Mild stable cardiomegaly. Small hiatal hernia. Emphysematous change considered baseline. Mild asymmetry of pulmonary vasculature with the right diminished compared to the left. This is perhaps slightly increased in prominence compared to the prior exam. IMPRESSION: 1. Mild decrease in pulmonary vascularity of the right hemithorax compared to the left. 2. Emphysematous change. 3. CT angiography of the chest is suggested as follow-up. The above report was generated using voice recognition software. It may contain grammatical, syntax or spelling errors. Electronically signed by: Maldonado Wilson M.D. 11/09/2018 11:[address] angio chest PE protocol CT DOSE: 577.22 mGycm HISTORY: Chest pain abnormal chest x-ray TECHNIQUE: Multiaxial CT images of the chest were performed following the intravenous administration of contrast to evaluate the pulmonary arteries. Maximal intensity projection images were also obtained. A dose lowering technique was utilized adhering to the principles of ALARA. COMPARISON STUDY: 01/06/2018 FINDINGS: Extensive pulmonary emboli involving the right chest. This includes involvement of the mid and distal aspect of the right main pulmonary artery. Similar diffuse pulmonary emboli the left hemithorax although involvement of the left main pulmonary artery is minimal atelectasis distal aspect. Prominence of pulmonary arterial vasculature suggesting component of pulmonary arterial hypertension. Diffuse stable emphysematous change. No focal infiltrative process. Stable 6 mm nodule right upper lung. IMPRESSION: 1. Extensive bilateral pulmonary emboli. 2. Findings of developing pulmonary arterial hypertension. 3. Stable emphysematous change. 4. Fixed hiatal hernia. The above report was generated using voice recognition software. It may contain grammatical, syntax or spelling errors. Electronically signed by: Maldonado Wilson M.D. 11/09/2018 12:46 PM ECG Data Attestation: I personally reviewed and interpreted this ECG as follows: Indication: syncope Rate (beats per minute): 104 Rhythm: sinus tachycardia Findings: + other (right axis deviation, previous inferior and anterior infarcts, repolarization abnormality) Blood Pressure Blood Pressure Findings: Normal blood pressure MDM Narrative This patient was evaluated and appeared to be in no significant distress. IV access was obtained and laboratory work was drawn. Patient was placed on night monitor and found to be slightly tachycardic and hypoxic. Laboratory work was obtained and the patient was hydrated with normal saline solution. EKG confirms sinus tachycardia. Patient was sent for CT scan of the chest given the abnormal vital signs and history of colon CA. CT is positive for bilateral pulmonary emboli. Patient was informed of the findings. IV heparin was initiated. Case was discussed with the hospitalist service for further evaluation and management. Patient is aware of the plan and agrees. Impression & Plan Bilateral pulmonary embolism, Syncope Discharge Plan Visit Data *Final* Discharge Date/Time: 11/09/18 14:44 Chief Complaint: Syncope ED Provider: Pati Stockton Discharge Problem: Bilateral pulmonary embolism, Syncope Patient Disposition: Admitted As Inpatient Discharge Instructions Interventions: ED Discharge Assessment Last Done: 11/09/18 14:44 Discharge Problem: Syncope Qualifiers: Syncope type: unspecified Qualified Code(s): R55 - Syncope and collapse The scribe's documentation has been prepared under my direction and personally reviewed by me in its entirety. I confirm that the note above accurately reflects all work, treatment, procedures, and medical decision making performed by me.
[2018-11-09] MEDS: SODIUM CHLORIDE 0.45 % 1,000 ML IV SCH (16:43)
--- NOTE | 2018-11-09 16:44 | Ultrasound Report ---
ULTRASOUND BILATERAL LOWER EXTREMITY VENOUS CLINICAL HISTORY: Pulmonary embolus. COMPARISON STUDY: No priors. TECHNIQUE: Real-time, grayscale, and color Doppler sonography of the deep veins of the right and left lower extremity was performed from the inguinal crease to the calf. Compression and augmentation wer e utilized. FINDINGS: Right lower extremity: There is occlusive deep venous thrombosis identified in the right calf within the posterior tibial vein. The remaining right calf vessels are patent. The common femoral, superfici al femoral, and popliteal veins are patent and normally compressible. The greater saphenous vein and the profunda femoris vein at the junction with the common femoral vein are clear. Left lower extremity: There is no sonographic evidence of deep venous thrombosis identified in the le ft lower extremity. The common femoral, superficial femoral, and popliteal veins are patent and tonia lly compressible. The greater saphenous vein and the profunda femoris vein at the junction with the c ommon femoral vein are clear. The visualized calf veins are patent. IMPRESSION: 1. There is deep venous thrombosis identified in the right calf within the posterior tibial vein. 2. No above knee deep venous thrombosis is identified in the right lower extremity. 3. There is no sonographic evidence of deep venous thrombosis identified in the left lower extremity. Electronically signed by: Bryan Blank M.D. 11/09/2018 4:42 PM
[2018-11-09] MEDS: Heparin Adult STANDARD Wt-Based Dextrose 5% 25,000 units/500 mL IV SCH (17:01)
[2018-11-09 17:11] LABS: INR 1.2 (0.9-1.1); Prothrombin Time 12.4 Seconds (9.0-12.0)
[2018-11-09 20:47] LABS: Partial Thromboplastin Time 81.9 Seconds (21.0-31.0)
[2018-11-10] MEDS: ACETAMINOPHEN 325 MG TAB PO PRN ×2 (01:41→21:59)
[2018-11-10] MEDS: SODIUM CHLORIDE 0.9% 1000ML 1,000 ML IV SCH (02:46)
[2018-11-10] MEDS ORDERED: METOPROLOL TARTRATE 25 MG TAB PO STA (03:01)
[2018-11-10 03:45] LABS: BUN Creatinine Ratio 21.1 (10-20); Creatinine Clr Calc Pharmacy 56.4 ml/min; Est GFR (African American) 58.7; Est GFR (Non-African American) 50.6; Potassium 4.3 mmol/L (3.5-5.1)
[2018-11-10 03:52] LABS: INR 1.2 (0.9-1.1); Partial Thromboplastin Ratio 2.3; Prothrombin Time 12.1 Seconds (9.0-12.0)
[2018-11-10 04:08] LABS: Partial Thromboplastin Time 63.1 Seconds (21.0-31.0)
[2018-11-10] MEDS: SODIUM CHLORIDE 0.45 % 1,000 ML IV SCH (05:22)
[2018-11-10] MEDS: LEVOTHYROXINE SODIUM 125 MCG TABLET PO SCH (05:25)
[2018-11-10] MEDS ORDERED: PERFLUTREN LIPID MICROSPHERE (DEFINITY) IV ONE (06:59)
[2018-11-10] MEDS: LACTOBACILLUS ACIDOPHILUS (FLORANEX) TAB PO SCH (08:16)
[2018-11-10] MEDS: METOPROLOL TARTRATE 25 MG TAB PO SCH (08:16)
[2018-11-10] MEDS: SERTRALINE HCL 50 MG TABLET PO SCH (08:16)
[2018-11-10] MEDS: PANTOprazole 40 MG TAB PO SCH (08:17)
[2018-11-10] MEDS: MULTIVITAMIN TAB PO SCH (08:17)
[2018-11-10] MEDS: Heparin Adult STANDARD Wt-Based Dextrose 5% 25,000 units/500 mL IV SCH (10:47)
[2018-11-10] MEDS: ALBUT/IPRATROP 3MG/0.5MG NEB 3 ML VIAL NEB SCH ×3 (15:06→23:38)
[2018-11-10] MEDS: WARFARIN SOD 5 MG TAB PO SCH (16:42)
--- NOTE | 2018-11-10 18:51 | Hospitalist Progress Note ---
Date of Service November 10, 2018 Assessment & Plan (1) Bilateral pulmonary embolism: 78 yo WM with hx of colon cancer s/p surgical removal several years ago. Bilateral extensive pulmonary embolism, and right lower extremity DVT Echo was done, EF 40%, possible apical thrombosis, consult cardiology if needed, patient is on heparin drip now no urgent Started on heparin in the ED, will continue Start coumadin 10mg x1, continue 5 mg p.o. daily, follow-up PT/INR Given extensive PE and renal function, pt may not be a candidate for other anticoagulation options Concerning in the setting of hx of colon cancer and possibly untx region CTAP should be done with PO/IV contrast and can hold on this until renal function allows CAD, Hx of [place] 1994, stent in 1995 Syncope: However because of abnormal echo results include apical thrombosis, will request cardiology consult, CT head is no acute disease, ARF (acute renal failure) upon admission which has been improving, Baseline cr is 0.9, it was 1.7 upon admission today is 1.35 Monitor with IVF Likely dehydration Hypertension: Stable, continue home meds Colon cancer: s/p resection, Declined chemon, Follows with Dr. Salcedo if needed Hypothyroidism, anxiety, gout, continue current medication, DVT prophylaxis: Heparin for DVT proph (2) Syncope: see above (3) ARF (acute renal failure): see above (4) Hypertension: continue home meds (5) Colon cancer: s/p resection Declined chemo Follows with Dr. Salcedo if needed (6) Hypothyroid: continue home meds (7) Anxiety: continue home meds (8) Gout: No current meds Colchicine PRN (9) CAD (coronary artery disease): Hx of [place] 1994, stent in 1995 Aspirin 81mg (10) DVT prophylaxis: Heparin for DVT proph Subjective feeling chest tightness, occasional cough, no wheezing, Denies hemoptysis ROS: Review of Systems Constitutional: positive weakness, or fatigue Respiratory: see above Cardiac: No chest pain, No orthopnea, No PND, No claudication, No palpitations, Abdomen: No pain, No nausea, No vomiting, No diarrhea, No constipation, No GI bleeding Musculoskeletal: No joint pain, No muscle pain, No swelling, No calf pain, No problem reported : No dysuria, No urinary frequency, No incontinence, No hematuria Neurologic: No paralysis, No weakness, No numbness/tingling, No vertigo, No balance problems Psychiatric: No depression symptoms, No anhedonism, No anxiety, No insomnia, No substance abuse Heme: No abnormal bleeding/bruising, No clotting problems, No swollen lymph nodes, No night sweats Skin: No rash, No itch, No new/changing skin lesions, No color change, No bleeding Physical Exam Vital Signs (Past 24 Hours): Last Vital Signs Temp 36.5 C 11/10/18 15:42 Pulse 76 11/10/18 15:42 Resp 18 11/10/18 15:42 BP 129/80 11/10/18 15:42 Pulse Ox 96 11/10/18 15:42 Physical Exam: General Appearance: WD/WN, no apparent distress, Eyes: normal inspection, PERRL, EOMI, sclerae normal ENT: normal ENT inspection, hearing grossly normal, pharynx normal Neck: supple, no adenopathy, thyroid normal, no JVD, no carotid bruits, trachea midline Respiratory/Chest: chest non-tender, normal breath sounds, no respiratory distress, , occasional wheezing, no rales, or craclkles Cardiovascular: regular rate, rhythm, no JVD, no murmur Abdomen: normal bowel sounds, non tender, soft, no organomegaly, Extremities: normal range of motion, non-tender, normal inspection, no pedal edema, no calf tenderness, normal capillary refill, pelvis stable, joint has no limited range of motion, capillary refill is normal, no cyanosis clubbing Neurologic/Psychiatric: manager applied II-XII nml as tested, no motor/sensory deficits, alert, normal mood/affect, oriented x 3 Skin: normal color, warm/dry, no rash Lymphatic: no adenopathy Results & Data Laboratory Results Laboratory Results - last 24 hr 11/09/18 11/09/18 11/10/18 20:01 21:27 03:15 PT INR APTT 81.9 H* PTT Ratio 3.0 Sodium 140 Potassium 4.3 Chloride 106 Carbon Dioxide 28 Anion Gap 6.0 BUN 29 H Creatinine 1.35 D Est Cr Clr Drug Dosing 56.4 Est GFR ( Amer) 58.7 Est GFR (Non-Af Amer) 50.6 BUN/Creatinine Ratio 21.1 H Glucose 102 H POC Glucose Calcium 8.0 L Troponin I 0.199 H* 11/10/18 11/10/18 03:15 12:27 PT 12.1 H INR 1.2 H APTT 63.1 H* PTT Ratio 2.3 Sodium Potassium Chloride Carbon Dioxide Anion Gap BUN Creatinine Est Cr Clr Drug Dosing Est GFR ( Amer) Est GFR (Non-Af Amer) BUN/Creatinine Ratio Glucose POC Glucose 139 H Calcium Troponin I Diagnostic Findings CTA of the chest per report: 1. Extensive bilateral pulmonary emboli. 2. Findings of developing pulmonary arterial hypertension. 3. Stable emphysematous change. 4. Fixed hiatal hernia. [place] lower ext Doppler ultrasound per report There is deep venous thrombosis identified in the right calf within the posterior tibial vein. (1) Syncope Syncope type: unspecified Qualified Code(s): R55 - Syncope and collapse
[2018-11-11] MEDS: Heparin Adult STANDARD Wt-Based Dextrose 5% 25,000 units/500 mL IV SCH ×2 (02:17→22:25)
[2018-11-11] MEDS: ALBUT/IPRATROP 3MG/0.5MG NEB 3 ML VIAL NEB SCH ×6 (03:33→23:18)
[2018-11-11 05:41] LABS: Hematocrit (blood only) 41.3 % (42-52); Hemoglobin 13.2 g/dL (14.0-18.0); Mean Corpuscular Volume 98.3 fL (80-100); Mean Platelet Volume 10.3 fL (7.4-10.4); Platelet Count 120 K/uL (130-400); RDW Coefficient of Variation 15.3 % (11.5-14.5); White Blood Count 7.46 K/uL (4.8-10.8)
[2018-11-11 06:07] LABS: INR 1.7 (0.9-1.1); Partial Thromboplastin Ratio 2.9; Prothrombin Time 16.8 Seconds (9.0-12.0)
[2018-11-11] MEDS: LEVOTHYROXINE SODIUM 125 MCG TABLET PO SCH (06:18)
[2018-11-11 06:39] LABS: Partial Thromboplastin Time 79.3 Seconds (21.0-31.0)
[2018-11-11] MEDS: MULTIVITAMIN TAB PO SCH (08:10)
[2018-11-11] MEDS: PANTOprazole 40 MG TAB PO SCH (08:10)
[2018-11-11] MEDS: METOPROLOL TARTRATE 25 MG TAB PO SCH (08:10)
[2018-11-11] MEDS: SERTRALINE HCL 50 MG TABLET PO SCH (08:10)
[2018-11-11] MEDS: LACTOBACILLUS ACIDOPHILUS (FLORANEX) TAB PO SCH (08:11)
[2018-11-11 13:40] LABS: Partial Thromboplastin Ratio 2.3
[2018-11-11 14:03] LABS: Partial Thromboplastin Time 62.6 Seconds (21.0-31.0)
--- NOTE | 2018-11-11 16:29 | Hospitalist Progress Note ---
Date of Service November 11, 2018 Assessment & Plan (1) Bilateral pulmonary embolism: CTA chest on 11/09 showed bilateral extensive pulmonary embolism. Ultrasound on 11/09 showed right lower extremity DVT. Echo on 11/10 was stable with EF 40-50%. Possible apical thrombus noted, but this is actually a long- standing finding per outpatient notes. - Continue heparin gtt - Continue coumadin 5mg PO daily - Will get CT a/p to evaluate colon cancer - Advised oncology consult given the large clot burden, but he declined at this time. (2) Syncope: Likely due to his large PEs. - See above (3) ARF (acute renal failure): Baseline creatinine ~1.0. Was 1.7 on admission; down to 1.3 on 11/10. - Monitor Cr - Avoid nephrotoxins (4) Hypertension: BP 130/80 at present. No concern for hemodynamic compromise. - Continue home meds (5) Colon cancer: S/p resection in 07/2017 with ileostomy reversal in 08/[address] Rutledge. Declined chemo at the time and had been merely observing. Follows with Dr. Salcedo. - CT a/p ordered on 11/11 for follow up. (6) Hypothyroid: Continue home meds (7) Anxiety: Continue home meds (8) Gout: No current meds, but no current flare. - Colchicine PRN (9) CAD (coronary artery disease): Hx of [place] 1994, stent in 1995. - Continue Aspirin 81mg (10) DVT prophylaxis: On heparin gtt for his PE... Subjective Feeling better today. Less shortness of breath. Reports no fevers/chills, chest pain, shortness of breath, abdominal pain, nausea, or vomiting. Physical Exam Vital Signs (Past 24 Hours): Last Vital Signs Temp 36.5 C 11/11/18 15:14 Pulse 92 H 11/11/18 15:25 Resp 14 11/11/18 15:25 BP 129/83 11/11/18 15:14 Pulse Ox 92 11/11/18 15:25 Constitutional: WD/WN, vitals as above Eyes: normal visual edwards by confrontation and + anicteric sclerae Neck: normal visual inspection and trachea midline Respiratory: normal respiratory effort, lungs clear to auscultation normal respiratory effort; no respiratory distress Auscultation: + crackles Cardiovascular: Rate/Rhythm: regular rate and regular rhythm Gastrointestinal (Abdomen): Inspection/Auscultation: abdomen not distended Percussion/Palpation: abdomen soft; abdomen nontender Musculoskeletal: Head/Neck/Chest: normocephalic and head atraumatic Skin: no rashes, warm and dry Neurologic: awake; not confused Speech / Cognition: normal speech Psychiatric: A+Ox3, euthymic affect (1) Syncope Syncope type: unspecified Qualified Code(s): R55 - Syncope and collapse
[2018-11-11] MEDS: WARFARIN SOD 5 MG TAB PO SCH (17:04)
[2018-11-11] MEDS ORDERED: COUGH DROP (SUGAR FREE) LOZ 24 LOZ/1 BOX BUCCAL ONE (20:20)
[2018-11-11] MEDS ORDERED: IOVERSOL 100ml IV PRN (22:12)
--- NOTE | 2018-11-11 22:32 | CT Scan Report ---
CT abd pelvis oral and IV con CLINICAL HISTORY: Colon cancer follow up COMPARISON STUDY: 01/06/2018 TECHNIQUE: The patient was scanned following administration of dilute oral contrast, and in a dynamic helical fashion during intravenous administration of 91 cc of Optiray 320. A dose lowering techniqu e was utilized adhering to the principles of ALARA. CT DOSE: 1215.57 mGy.cm FINDINGS: Lower chest: There is a moderate hiatal hernia. There are minor dependent atelectatic changes. There is a right lower lobe calcified granuloma. There is mild subpleural reticulation. There is a suspecte d small thrombus involving the left ventricular apex. This remain stable Liver: The contrast-enhanced liver is normal in size, contour, and attenuation. There is no intrahepa tic biliary ductal dilatation. The hepatic veins and portal veins are patent. Gallbladder: Contracted Spleen: Normal in size and attenuation. Pancreas: Unremarkable. Adrenal glands: Unremarkable. Kidneys: No solid renal masses are visualized. There is a 5.6 cm right renal cyst. Bowel: There are no transition zones indicate bowel obstruction. There is no evidence of acute divert iculitis. There are no findings to indicate acute appendicitis. There is sigmoid diverticulosis. Peritoneum: There is no intraperitoneal free air or abdominal ascites. There is a fat-containing umbi lical hernia. Vasculature: The abdominal aorta is normal in course and caliber. Adenopathy: None. Pelvic viscera: The bladder, and pelvic viscera are unremarkable. Skeletal structures: No destructive osseous lesions are visualized. There is bilateral L5 spondylolys is. IMPRESSION: 1. No acute intra-abdominal or pelvic findings 2. No evidence of metastatic disease Electronically signed by: Vikash Ramirez M.D. 11/11/2018 10:30 PM
[2018-11-12] MEDS: ALBUT/IPRATROP 3MG/0.5MG NEB 3 ML VIAL NEB SCH ×6 (03:22→23:10)
[2018-11-12] MEDS: LEVOTHYROXINE SODIUM 125 MCG TABLET PO SCH (05:25)
[2018-11-12 06:14] LABS: INR 1.9 (0.9-1.1); Partial Thromboplastin Ratio 2.4; Prothrombin Time 18.2 Seconds (9.0-12.0)
[2018-11-12 06:18] LABS: Partial Thromboplastin Time 65.1 Seconds (21.0-31.0)
[2018-11-12 06:30] LABS: BUN Creatinine Ratio 16.6 (10-20); Calcium 8.2 mg/dl (8.5-10.1); Creatinine Clr Calc Pharmacy 62.2 ml/min; Est GFR (African American) 61.4; Magnesium 2.2 mg/dl (1.8-2.4); Potassium 4.1 mmol/L (3.5-5.1)
[2018-11-12] MEDS: MULTIVITAMIN TAB PO SCH (08:47)
[2018-11-12] MEDS: SERTRALINE HCL 50 MG TABLET PO SCH (08:47)
[2018-11-12] MEDS: LACTOBACILLUS ACIDOPHILUS (FLORANEX) TAB PO SCH (08:47)
[2018-11-12] MEDS: METOPROLOL TARTRATE 25 MG TAB PO SCH (08:47)
[2018-11-12] MEDS: PANTOprazole 40 MG TAB PO SCH (08:47)
--- NOTE | 2018-11-12 13:42 | Hospitalist Progress Note ---
Date of Service November 12, 2018 Assessment & Plan (1) Bilateral pulmonary embolism: CTA chest on 11/09 showed bilateral extensive pulmonary embolism. Ultrasound on 11/09 showed right lower extremity DVT. Echo on 11/10 was stable with EF 40-50%. Apical thrombus noted, but this is actually a long-standing finding per outpatient notes and not actually clot. - Continue heparin gtt - Continue coumadin 5mg PO daily - On 11/11, I advised we get an oncology consult given the large clot burden, but he declined. - On 11/12, still having some shortness of breath with exertion. This is not surprising given his large clot burden, but I am concerned about sending him home when he reports having trouble doing more than getting to the bathroom and back. - Consulted PT - Will see what his current abilities are. Will monitor O2 needs and consider 2-step if he can otherwise be discharged tomorrow. - INR was 1.9 today; will likely be therapeutic tomorrow. - Working with nurse navigator to arrange outpatient INR follow up. (2) Syncope: Likely due to his large PEs. - See above (3) ARF (acute renal failure): Baseline creatinine ~1.0. Was 1.7 on admission; down to 1.3 on 11/10. - On 11/12, still ~1.3. Close enough that this may be baseline. (4) Hypertension: BP 130/80 to 160/100 over the last 24 hours. No concern for hemodynamic compromise from his PEs. - Continue home meds (5) Colon cancer: S/p resection in 07/2017 with ileostomy reversal in 08/[address] Rutledge. Declined chemo at the time and had been merely observing. Follows with Dr. Salcedo. - CT a/p on 11/11 did not show new or worse colon cancer - Outpatient follow up (6) Hypothyroid: Continue home meds (7) Anxiety: Continue home meds (8) Gout: No current meds, but no current flare. - Colchicine PRN (9) CAD (coronary artery disease): Hx of [place] 1994, stent in 1995. - Continue Aspirin 81mg (10) DVT prophylaxis: On heparin gtt for his PE... Subjective Feeling stable today. Still having shortness of breath with significant movement. Reports no fevers/chills, chest pain, abdominal pain, nausea, or vomiting. Physical Exam Vital Signs (Past 24 Hours): Last Vital Signs Temp 36.5 C 11/12/18 10:44 Pulse 88 11/12/18 11:19 Resp 16 11/12/18 11:19 BP 145/90 H 11/12/18 10:44 Pulse Ox 96 11/12/18 11:19 Constitutional: WD/WN, vitals as above Eyes: normal visual edwards by confrontation and + anicteric sclerae Neck: normal visual inspection and trachea midline Respiratory: normal respiratory effort, lungs clear to auscultation normal respiratory effort; no respiratory distress Auscultation: + crackles Cardiovascular: Rate/Rhythm: regular rate and regular rhythm Gastrointestinal (Abdomen): Inspection/Auscultation: abdomen not distended Percussion/Palpation: abdomen soft; abdomen nontender Musculoskeletal: Head/Neck/Chest: normocephalic and head atraumatic Skin: no rashes, warm and dry Neurologic: awake; not confused Speech / Cognition: normal speech Psychiatric: A+Ox3, euthymic affect (1) Syncope Syncope type: unspecified Qualified Code(s): R55 - Syncope and collapse
[2018-11-12] MEDS: WARFARIN SOD 5 MG TAB PO SCH (15:24)
[2018-11-12] MEDS: Heparin Adult STANDARD Wt-Based Dextrose 5% 25,000 units/500 mL IV SCH (17:31)
[2018-11-13] MEDS: ALBUT/IPRATROP 3MG/0.5MG NEB 3 ML VIAL NEB SCH ×4 (03:06→15:07)
[2018-11-13] MEDS: LEVOTHYROXINE SODIUM 125 MCG TABLET PO SCH (06:38)
[2018-11-13] MEDS: ACETAMINOPHEN 325 MG TAB PO PRN (06:40)
[2018-11-13 07:10] LABS: Hematocrit (blood only) 41.2 % (42-52); Hemoglobin 13.4 g/dL (14.0-18.0); Mean Corpuscular Hgb Conc 32.5 g/dL (32-36); Mean Corpuscular Volume 96.7 fL (80-100); Mean Platelet Volume 9.9 fL (7.4-10.4); Platelet Count 133 K/uL (130-400); RDW Coefficient of Variation 15.2 % (11.5-14.5); RDW Standard Deviation 53.2 fL (36.4-46.3); Red Blood Count 4.26 M/uL (4.7-6.1); White Blood Count 6.92 K/uL (4.8-10.8)
[2018-11-13 07:31] LABS: INR 2.1 (0.9-1.1); Partial Thromboplastin Ratio 2.6; Prothrombin Time 20.7 Seconds (9.0-12.0)
[2018-11-13 07:37] LABS: Partial Thromboplastin Time 70.6 Seconds (21.0-31.0)
[2018-11-13] MEDS: PANTOprazole 40 MG TAB PO SCH (08:19)
[2018-11-13] MEDS: METOPROLOL TARTRATE 25 MG TAB PO SCH (08:19)
[2018-11-13] MEDS: MULTIVITAMIN TAB PO SCH (08:19)
[2018-11-13] MEDS: LACTOBACILLUS ACIDOPHILUS (FLORANEX) TAB PO SCH (08:20)
[2018-11-13] MEDS: SERTRALINE HCL 50 MG TABLET PO SCH (08:21)
--- NOTE | 2018-11-13 12:14 | Discharge Summary ---
Date of Service November 13, 2018 Admission HPI Per Admitting Provider 78 y/o M c/o syncope. Pt states that he has been having issues with SOB since about last . This is occurring with exertion and resolves when he rests. He states that this AM he had been sitting on the toilet. He stood up and bent over to take out the scale and he became SOB. He sat back down, but then he passed out. This happened a second time after he became SOB while ambulating. He attempted to sit down to resolve but his next memory was family and EMS around him. No other lightheaded or dizziness noted. "My head feels funny now though." Pt denies fever, chest pain, abd pain, c/d, LE swelling. He states he has been nauseated with dry heaves the last few days. He has been able to eat but his fluid intake has been low. He has R sided sciatica which he has been seeing a chiropractor for over the last month. No other LE pain. Pt has hx of colon cancer. He had a surgical removal several years ago. He follows with Dr. Salcedo. He states Dr. Salcedo wanted to start chemo about 2 years ago for a "black spot" noted on his colon. Pt states he declined tx at that time as Dr. Salcedo could not tell him if that spot was definitively cancer or not. He has had no further tx since then. Principal Diagnosis Syncope, Acute pulmonary emboli, DVT Discharge Exam Constitutional WD/WN, vitals as above Eyes PERRL, conjunctivae normal, anicteric sclerae ENMT external ear and nose normal, oropharynx normal Neck trachea midline, no thyromegaly Respiratory normal respiratory effort; no respiratory distress Auscultation: + crackles (at right base) Cardiovascular RRR, no murmur, no edema Gastrointestinal (Abdomen) normal bowel sounds, soft, nontender, no hepatosplenomegaly Musculoskeletal Extremities: extremities normal to inspection; no cyanosis and no clubbing Skin no rashes, warm and dry Neurologic moves all extremities and awake; no focal motor deficits Psychiatric A+Ox3, euthymic affect Discharge Data Allergies Allergy/AdvReac Type Severity Reaction Status Date / Time midazolam Allergy Unknown combative Verified 11/09/18 11:09 tetracycline Allergy Unknown UNKNOWN Verified 11/09/18 11:09 Consultations 11/09/18 13:07 ED Decision to Admit Stat 11/09/18 15:36 Consult Case Management - Discharge Planning Routine Procedures Performed ECHOCARDIOGRAM Ordered Studies 11/09/18 10:59 CT angio chest PE protocol Stat 11/09/18 12:50 CT head/brain wo con Stat 11/09/18 15:36 US venous doppler LE BI Stat 11/11/18 15:41 CT abd pelvis oral and IV con Routine CXR Hospital Course (1) Bilateral pulmonary embolism: CTA chest on 11/09 showed bilateral extensive pulmonary embolism. Ultrasound on 11/09 showed right lower extremity DVT. Echo on 11/10 was stable with EF 40-50%. Apical thrombus noted, but this is actually a long-standing finding per outpatient notes and not actually clot. - was on heparin gtt and then transitioned to Lovenox and coumadin - Continue coumadin 5mg PO daily upon discharge, with bridging Lovenox - On 11/11, he was advised to get an oncology consult given the large clot burden, but he declined. - he had some residual shortness of breath with exertion which was greatly improved prior to discharge. This is not surprising given his large clot burden INR was therapeutic for one day on day of discharge but want to overlap bridging therapy for at least 2 days--> continue Lovenox and check INR on Friday (2) Acute respiratory failure with hypoxia: Hypoxic on admission, due to PEs. Weaned off O2 prior to discharge (3) Acute DVT (deep venous thrombosis): RLE post tibial vein, Anticoagulation as above (4) Syncope: Likely due to his large PEs. - See above (5) ARF (acute renal failure): Baseline creatinine ~1.0. Was 1.7 on admission; down to 1.3 on discharge (6) Hypertension: Some mild elevations of BP. No concern for hemodynamic compromise from his PEs. - Continue home meds (7) Colon cancer: S/p resection in 07/2017 with ileostomy reversal in 08/[address] Rutledge. Declined chemo at the time and had been merely observing. Follows with Dr. Salcedo. - CT a/p on 11/11 did not show new or worse colon cancer - Outpatient follow up especially given development of DVT/PE (8) Hypothyroid: Continue home meds (9) Anxiety: Continue home meds (10) Gout: No current meds, but no current flare. - Colchicine PRN (11) CAD (coronary artery disease): Hx of [place] 1994, stent in 1995. - Continue Aspirin 81mg (12) DVT prophylaxis: Lovenox, Coumadin Dispo-stable for dc to home Total Time Total Time Spent Total Time Spent (In Minutes): >30 min Total Time Includes: Examination of the Patient, Discharge Planning and Medication Reconciliation Discharge Plan Discharge Items Patient Disposition: Home - Self-Care Reason For Visit: PE Discharge Diagnosis: Acute pulmonary embolism, DVT Condition: Fair Discharge Goals: Decrease discomfort, Diagnostic testing, Improve disease control, Learn about illness and Therapeutic intervention Activity: As commented below Lifting: Gradually increase as tolerated Bathing: No limitations Exercise/Sports: Gradually increase as tolerated Exercise Comment: No heavy lifting or excessive exertion Driving/Machine Use: Resume 3 days after discharge Non-emergency contact: Primary Care Provider Call non-emergency contact if: you have any medication questions, your symptoms worsen, your pain is not controlled, your pain is worsening and your pain is unusual for you Follow-up/Referrals: Kylie Díaz DO [Primary Care Provider] - 11/18/18 10:40 am (follow up with your primary care physician- she will follow and manage coumadin doses) Diet: Heart Healthy Addtl Provider Instructions: You were admitted with passing out secondary to low oxygen levels from blood clots in your lungs. You are also found to have a blood clot in your leg. You are treated with blood thinners and should continue on Coumadin by mouth once daily, along with shots of Lovenox (enoxaparin) twice daily. You will need to have your Coumadin level (PT/INR) checked on Friday at Dr. Díaz's office. She will then tell you if you can stop doing the Lovenox injections and if your Coumadin dose needs to be adjusted. If you have any evidence of bleeding from any site, please either go to the emergency room or call your doctor immediately. If you develop worsening shortness of breath or chest pain, please go to the emergency room immediately. You do not need any oxygen after discharge--> you were tested for this prior to discharge. Prescriptions: New warfarin [Coumadin] 5 mg Tablet 5 mg PO DAILY@1600 Qty: 30 RF: 0 enoxaparin 120 mg/0.8 mL syringe 110 mg SQ Q12H Qty: 8 RF: 0 Continued terbinafine HCl [Lamisil AT] 1 % Cream 1 applic TOPICAL UD RF: 0 levothyroxine [Synthroid] 125 mcg tablet 125 mcg PO QAM RF: 0 metoprolol tartrate 50 mg tablet 25 mg PO QAM RF: 0 omeprazole 20 mg capsule,delayed release(DR/EC) 20 mg PO QAM RF: 0 colchicine 0.6 mg tablet 0.6 mg PO UD PRN (Reason: gout) RF: 0 ketoconazole 2 % cream 1 applic topical UD RF: 0 sertraline 50 mg tablet 100 mg PO QAM RF: 0 Probiotic 3 billion cell Capsule 3,000 mmu cells PO QAM RF: 0 multivitamin Tablet 1 tab PO QAM RF: 0 Discontinued aspirin 81 mg Tablet,Delayed Release (Dr/Ec) 81 mg PO QAM RF: 0 ibuprofen 200 mg Tablet 200 mg PO Q6H PRN (Reason: Pain) RF: 0 Stand-Alone Forms: [facility] Discharge Orders: Discharge Order (Routine); Ordered 11/13/18 Ordered By: Irina Lee Admission Data Admit Date/Time: 11/09/18 13:34 Attending Provider: Irina Lee Admit Provider: Belén Pena Primary Care Provider: Kylie Díaz Service: Telemetry Other Interventions: Discharge Summary Assessment (RN) Last Done: 11/13/18 13:30 Pending Studies at Discharge: No DC Date/Time DO NOT enter until pt leaves facility: 11/13/18 15:59
[2018-11-13] MEDS ORDERED: ENOXAPARIN 1 MG/KG SQ SCH (12:15)
[2018-11-13] MEDS ORDERED: ENOXAPARIN INJ 120 MG/0.8 ML SYR SQ SCH (13:00)
--- NOTE | 2018-11-17 07:27 | Coding Query ---
PRESENT ON ADMISSION QUERY To promote full compliance with coding requirements relating to pateint care, physician participation is requested in all cases of certified coder uncertainty. Please assist us with the question(s) below: Please place an X within the parenthesis (x). The following diagnosis(es) listed in this patient's medical record require physician assistance to determine if they were present on admission (POA) or not. Please advise for each diagnosis whether it was present on admission, not present on admission, or if it was clinically undetermined. 1. Acute Respiratory Failure with Hypoxia (Hypoxia documented on ER H&P but Acute Respiratory Failure not documented until Discharge Summary). (x ) Present On Admission ( ) Not Present On Admission ( ) Clinically Undetermined Thank you Rehana Zamarripa *Definition of the present on admission (POA)-Present on admission is defined as present at the time the order for inpatient admission occurs. Conditions that develop during an outpatient encounter prior to a written order for inpatient admission (including emergency department, observation, or outpatient surgery) are considered present on admission. ROSS
== END 2018-11-13 15:59 | disposition home or self-care (01) | DRG 175 ==
LOC: ED 10:18 → 2S 13:34 → SUATTDRO 13:34 → 2S 14:44
DX: Z79.899 Other long term (current) drug therapy; I10 Essential (primary) hypertension; N17.9 Acute kidney failure, unspecified; J96.01 Acute respiratory failure with hypoxia; Z88.1 Allergy status to other antibiotic agents; I82.441 Acute embolism and thrombosis of right tibial vein; I25.2 Old myocardial infarction; Z88.8 Allergy status to other drugs, medicaments and biological substances; E86.0 Dehydration; F41.9 Anxiety disorder, unspecified; Z85.038 Personal history of other malignant neoplasm of large intestine; Z79.82 Long term (current) use of aspirin; R55 Syncope and collapse; E03.9 Hypothyroidism, unspecified; I26.99 Other pulmonary embolism without acute cor pulmonale; I25.10 Atherosclerotic heart disease of native coronary artery without angina pectoris; Z51.81 Encounter for therapeutic drug level monitoring; Z87.891 Personal history of nicotine dependence